=== PATIENT | male | born 1945 | race Caucasian/White ===

== ENCOUNTER 2017-07-15 12:40 | Emergency (ER) | payer MEDICARE, BC ==
[2017-07-15] MEDS ORDERED: Ondansetron INJ* 2 MG/ML VIAL IV ONE (13:09)
[2017-07-15] MEDS ORDERED: fentaNYL* 50 MCG/ML 2 ML VIAL (100 MCG VIAL) IV SLOW PU ONE (13:09)
[2017-07-15] MEDS ORDERED: oxyCODONE SR TAB(*) 20 MG TAB.SR PO ONE (13:44)
[2017-07-15] MEDS ORDERED: Dexamethasone IV* 4 MG/ML 1 ML (4 MG) IV SLOW PU ONE (13:49)
[2017-07-15 13:52] LABS: Hematocrit 33 % (42-52); Hemoglobin 10.9 g/dl (14.0-18.0); Mean Corpuscular HGB Conc 34 g/dl (31-36); Mean Corpuscular Hemoglobin 30 pg (27-31); Mean Corpuscular Volume 89 fL (80-94); Mean Platelet Volume 7 um3 (7.4-10.4); Red Blood Count 3.64 10^6/ul (4.0-5.4); Red Cell Distribution Width 16 % (10.5-15); White Blood Count 7.6 10^3/ul (3.5-10.8)
[2017-07-15 14:00] LABS: Albumin 3.1 g/dL (3.2-5.2); BUN/Creatinine Ratio 20.8 (8-20); C Reactive Protein 75.21 mg/L (< 5.00); Calcium 9.1 mg/dL (8.6-10.3); EGFR African American 128.1 (>60); EGFR Non-African American 99.6 (>60); Globulin 4.2 g/dL (2-4); Potassium 3.8 mmol/L (3.5-5.0); Total Bilirubin 0.6 mg/dL (0.2-1.0); Total Protein 7.3 g/dL (6.4-8.9)
--- NOTE | 2017-07-15 14:00 | PN ---
Progress Note - Progress Note Date of Service: 07/15/17 SOAP: Subjective: []Pain increased over last week. This am very sever. Could not walk and could not sit. Not eating well. No fever or chills. Otherwise stable. Some numbness down left leg. Oxycodone 5 mg q 4 hr Tylenal for pain. Objective: [] Vital Signs Temp Pulse Resp BP Pulse Ox 99.8 F 88 20 131/81 96 07/15/17 12:41 07/15/17 12:41 07/15/17 13:45 07/15/17 12:41 07/15/17 12:41 HEENT - no lesions, no thrush CTA RRR S1S2, tachy +BS NT ND Ext no c/c/e MRI - There is disease in both hips and femurs, pelvic lesions. No pending fractures. Assessment: []72 year old progressive myeloma and uncontrolled pain. Discussed recurrent disease and salvage chemotherapy. Plan: []1. Oxycontin 20 mg po bid for pain, sent to pharmacy 2. Dex 20 IV now 3. RTC tomorrow to start chemotherapy.
[2017-07-15 14:15] VITALS: BP 124/71
--- NOTE | 2017-07-18 13:22 | ED ---
Marilynn Kapoor Thomas scribed for Magno Lo MD on 07/15/17 at 1326 . Lower Extremity - HPI Summary HPI Summary: The pt is a 72 y/o M BIBA c/o L hip pain that began three days ago and significantly worsened last night. The patient has a Hx of multiple myeloma with recent discovery of metastases. The pain is constant and radiates to his lower thigh. The pain is described as dull. The pain is rated 10/10. The pain is aggravated by movement and is alleviated by nothing. The patient has treated the pain with Oxycodone 5mg and Tylenol PLACEMENT SPECIALIST. Recent MRIs on 07/11/17 and bone osseous survey on 07/02/17 were reviewed. - History of Current Complaint Chief Complaint: EDExtremityLower Stated Complaint: HIP PAIN Time Seen by Provider: 07/15/17 12:56 Hx Obtained From: Patient Onset of Pain: Days - 3 Onset/Duration: Worse Since - last night Severity Initially: Moderate Severity Currently: Severe Pain Intensity: 10 Pain Scale Used: 0-10 Numeric Timing: Constant Location: Is Discrete @ - L hip with radiation to lower thigh Character Of Pain: Dull Aggravating Factor(s): Movement Alleviating Factor(s): Nothing Related History: Other - Hx of multiple myeloma with metastases - Allergies/Home Medications Allergies/Adverse Reactions: Allergies Allergy/AdvReac Type Severity Reaction Status Date / Time Simvastatin Allergy Hives Verified 07/08/17 12:43 PMH/Surg Hx/FS Hx/Imm Hx Previously Healthy: No Endocrine/Hematology History: Denies: Hx Diabetes Cardiovascular History: Denies: Hx Hypertension, Hx Pacemaker/ICD Respiratory History: Denies: Hx Asthma Musculoskeletal History: Denies: Hx Osteoporosis Sensory History: Denies: Hx Hearing Aid Psychiatric History: Denies: Hx Panic Disorder - Cancer History Cancer Type, Location and Year: MYELOMA Hx Chemotherapy: Yes - Surgical History Surgery Procedure, Year, and Place: stem cell transplant, right ankle Infectious Disease History: No Infectious Disease History: Denies: Traveled Outside the [place] in Last 30 Days - Family History Known Family History: Positive: Other - Patient denies relevant FHx - Social History Lives: With Family Alcohol Use: Occasionally Substance Use Type: Reports: None Hx Tobacco Use: Yes Smoking Status (MU): Former Smoker Review of Systems Negative: Chest Pain Positive: Other - L hip pain All Other Systems Reviewed And Are Negative: Yes Physical Exam - Summary Physical Exam Summary: VITAL SIGNS: Reviewed. GENERAL: Patient is a well-developed and nourished male who is lying comfortable in the stretcher. Patient is not in any acute respiratory distress. HEAD AND FACE: No signs of trauma. No ecchymosis, hematomas or skull depressions. No sinus tenderness. EYES: PERRLA, EOMI x 2, No injected conjunctiva, no nystagmus. EARS: Hearing grossly intact. Ear canals and tympanic membranes are within normal limits. MOUTH: Oropharynx within normal limits. NECK: Supple, trachea is midline, no adenopathy, no JVD, no carotid bruit, no c- spine tenderness, neck with full ROM. CHEST: Symmetric, no tenderness at palpation LUNGS: Clear to auscultation bilaterally. No wheezing or crackles. CVS: Regular rate and rhythm, S1 and S2 present, no murmurs or gallops appreciated. ABDOMEN: Soft, non-tender. No signs of distention. No rebound no guarding, and no masses palpated. Bowel sounds are normal. EXTREMITIES: FROM in all major joints, no edema, no cyanosis or clubbing. NEURO: Alert and oriented x 3. No acute neurological deficits. Speech is normal and follows commands. SKIN: Dry and warm Triage Information Reviewed: Yes Vital Signs On Initial Exam: Initial Vitals Temp Pulse Resp BP Pulse Ox 99.8 F 88 20 131/81 96 07/15/17 12:41 07/15/17 12:41 07/15/17 12:41 07/15/17 12:41 07/15/17 12:41 Vital Signs Reviewed: Yes - [place] Coma Scale Coma Scale Total: 15 Diagnostics - Vital Signs Vital Signs Temp Pulse Resp BP Pulse Ox 07/15/17 12:41 99.8 F 88 20 131/81 96 - Laboratory Result Diagrams: 07/15/17 13:36 07/15/17 13:36 Lab Statement: Any lab studies that have been ordered have been reviewed, and results considered in the medical decision making process. Lower Extremity Course/Dx - Course Assessment/Plan: The pt is a 72 y/o M BIBA c/o L hip pain that began three days ago and significantly worsened last night. The patient has a Hx of multiple myeloma with recent discovery of metastases. The pain is constant and radiates to his lower thigh. The pain is described as dull. The pain is rated 10/10. The pain is aggravated by movement and is alleviated by nothing. The patient has treated the pain with Oxycodone 5mg and Tylenol PLACEMENT SPECIALIST. Recent MRIs on 07/11/17 and bone osseous survey on 07/02/17 were reviewed. Test results are without significant abnormalities and the results are at the patients baseline. I discussed the case with Dr. Manley, who came and assessed the patient. I gave the patient Fentanyl. Dr. Manley recommended OxyContin with dexamethasone and discharge home with follow up at Dr. Hamilton office tomorrow. The patient is hemodynamically stable and alert and oriented x3. - Diagnoses Provider Diagnoses: Pain control, Multiple myeloma - Physician Notifications Discussed Care Of Patient With: Jeffy Manley Time Discussed With Above Provider: 13:21 Instructed by Provider To: Other - Dr Manley, oncologist, will come and see the patient. He recommends one dose of OxyContin 20mg PO and 10mg Dexamethasone IV. The patient can be discharged home with follow up at Dr. Manley's office tomorrow. Discharge - Discharge Plan Condition: Stable Disposition: HOME Referrals: Jeffy Manley MD [Primary Care Provider] - 1 Day Additional Instructions: Follow up at Dr. Manley's office tomorrow morning. The documentation as recorded by the Marilynn childress Thomas accurately reflects the service I personally performed and the decisions made by , Magno Lo MD.
== END 2017-07-15 14:14 | disposition home or self-care (01) ==
LOC: ED 12:40
DX: C90.00 Multiple myeloma not having achieved remission (principal); M25.552 Pain in left hip; Z87.891 Personal history of nicotine dependence
CPT/HCPCS: 36415; 80053; 85025; 86140; 96374; 96375; 99283; 99284; A9270-GY; J1100; J2405; J3010

== ENCOUNTER 2017-08-29 00:12 | Inpatient (IN) | payer MEDICARE, BC ==
[2017-08-29] MEDS ORDERED: Albuterol 2.5 MG/3 ML NEB.SOL* (0.083%) INH ONE (01:10)
[2017-08-29 01:34] LABS: ABS Basophils 0 10^3/ul (0-0.2); ABS Eosinophils 0 10^3/ul (0-0.6); ABS Lymphocytes 0.7 10^3/ul (1.0-4.8); ABS Monocytes 0.5 10^3/ul (0-0.8); ABS Neutrophils 5.8 10^3/ul (1.5-7.7); ABS Nucleated RBC 0 10^3/ul; Eosinophil % 0.1 % (0-6); Hematocrit 27 % (42-52); Hemoglobin 9.3 g/dl (14.0-18.0); Lymphocyte % 10.1 % (25-47); Mean Corpuscular HGB Conc 34 g/dl (31-36); Mean Corpuscular Hemoglobin 30 pg (27-31); Mean Corpuscular Volume 88 fL (80-94); Mean Platelet Volume 9 um3 (7.4-10.4); Nucleated Red Blood Cells % 0.1; Platelet Count 93 10^3/ul (150-450); Red Blood Count 3.07 10^6/ul (4.0-5.4); Red Cell Distribution Width 17 % (10.5-15)
[2017-08-29 01:44] LABS: EGFR Non-African American 88.9 (>60)
[2017-08-29] MEDS ORDERED: Ondansetron INJ* 2 MG/ML VIAL IV PRN (02:49)
[2017-08-29] MEDS ORDERED: Al Hydrox/Mg Hydrox/Simet LIQ* 30 ML UDC PO PRN (02:49)
[2017-08-29] MEDS ORDERED: Docusate CAP* 100 MG PO PRN (02:49)
[2017-08-29] MEDS ORDERED: Senna TAB PO PRN (02:49)
[2017-08-29] MEDS ORDERED: Acetaminophen TAB* 325 MG PO PRN (02:49)
[2017-08-29] MEDS ORDERED: Levofloxacin 750 MG IVPREMIX(* 750 MG/150 ML BAG IVPB ONE (02:53)
[2017-08-29] MEDS ORDERED: predniSONE TAB* 20 MG PO ONE (02:54)
[2017-08-29] MEDS ORDERED: Albuterol 2.5 MG/3 ML NEB.SOL* (0.083%) INH PRN (02:54)
[2017-08-29] MEDS ORDERED: Vancomycin(*) 1,000 MG in NS 0.9% 250 ML* 250 ML IVPB ONE ×2 (02:59→05:00)
[2017-08-29] MEDS ORDERED: Cefepime(*) 1 GM in NS 0.9% 50 ML* 50 ML IVPB ONE (02:59)
[2017-08-29] MEDS ORDERED: Vancomycin per Pharmacy* NOTE FOLLOW UP SCH (03:00)
[2017-08-29] MEDS ORDERED: HYDROmorphone TAB* 2 MG PO PRN (03:03)
[2017-08-29] MEDS ORDERED: Meclizine TAB* 12.5 MG PO PRN (03:03)
[2017-08-29] MEDS: guaiFENesin ER TAB 600 MG PO SCH ×3 (05:35→20:04)
[2017-08-29] MEDS: fentaNYL PATCH 12 MCG/HR TRANSDERM SCH (05:36)
[2017-08-29] MEDS: NS 0.9% 1000 ML* 1,000 ML IV SCH ×2 (05:42→23:16)
[2017-08-29 06:13] LABS: ABS Basophils 0 10^3/ul (0-0.2); ABS Eosinophils 0 10^3/ul (0-0.6); ABS Lymphocytes 0.5 10^3/ul (1.0-4.8); ABS Monocytes 0.3 10^3/ul (0-0.8); ABS Nucleated RBC 0 10^3/ul; Eosinophil % 0.3 % (0-6); Hematocrit 27 % (42-52); Hemoglobin 9.3 g/dl (14.0-18.0); Lymphocyte % 7.9 % (25-47); Mean Corpuscular HGB Conc 34 g/dl (31-36); Mean Corpuscular Hemoglobin 30 pg (27-31); Mean Corpuscular Volume 89 fL (80-94); Mean Platelet Volume 9 um3 (7.4-10.4); Nucleated Red Blood Cells % 0.1; Platelet Count 97 10^3/ul (150-450); Red Blood Count 3.09 10^6/ul (4.0-5.4); Red Cell Distribution Width 17 % (10.5-15); White Blood Count 5.8 10^3/ul (3.5-10.8)
[2017-08-29] MEDS: fentaNYL Patch Check Q Shift 1 NOTE SCH ×2 (06:22→19:17)
[2017-08-29] MEDS ORDERED: Cefepime 1 GM in Dextrose(*) 1 GM/50 ML BAG IV ONE (06:30)
--- NOTE | 2017-08-29 07:56 | RAD ---
INDICATION: Chest pain and influenza. COMPARISON: Comparison is made with a prior study from August 25, 2017. TECHNIQUE: Dual-energy PA and lateral views of the chest were obtained. FINDINGS: The heart is within normal limits in size. Mediastinal and hilar contours appear within normal limits. There is a patchy infiltrate present at the right lung base which appears to be in the right lower lobe. In addition there is a patchy infiltrate present anteriorly which appears to be in the left upper lobe. These findings are new from the prior study. No pleural effusion is seen. IMPRESSION: NEW BILATERAL INFILTRATES MOST CONSISTENT WITH PNEUMONIA.
[2017-08-29] MEDS: Acyclovir* 400 MG TAB PO SCH ×2 (08:00→20:04)
[2017-08-29] MEDS: predniSONE TAB* 20 MG PO SCH (08:00)
[2017-08-29] MEDS: Aspirin EC Low Dose* 81 MG TAB.EC PO SCH ×2 (08:00→08:02)
[2017-08-29] MEDS: Rivaroxaban TAB(*) 20 MG TAB PO SCH (08:00)
[2017-08-29] MEDS: Oseltamivir CAP* 75 MG CAP PO SCH ×2 (08:00→20:04)
--- NOTE | 2017-08-29 08:36 | PN ---
Progress Note - Progress Note Date of Service: 08/29/17 SOAP: Subjective: []Developed increased SOB and cough over last several days. Could not breath, could not sleep. Continued fevers. Came to ER. CXR w/ new infiltrates, admited and placed on Levoquin and Vancomycin. Feels a little better today but not much. Not eating much and continues to loose weight. Pain is controlled. PmHx: Myeloma relapsed after ASCT, no daratumumab/Dex/Velcade. Extensive bone disease. Acetaminophen (Tylenol Tab*) 650 mg PO Q4H PRN PRN Reason: FEVER/PAIN Acyclovir (Zovirax Tab*) 400 mg PO Q12HR [facility] Last Admin: 08/29/17 08:00 Dose: 400 mg Al Hydrox/Mg Hydrox/Simethicone (Maalox Plus*) 30 ml PO Q6H PRN PRN Reason: INDIGESTION Albuterol (Ventolin 2.5 Mg/3 Ml Neb.Thao*) 2.5 mg INH Q4H PRN PRN Reason: SOB/WHEEZING Docusate Sodium (Colace Cap*) 100 mg PO BID PRN PRN Reason: CONSTIPATION Fentanyl (Duragesic Patch 12 Mcg/Hr *) 12 mcg TRANSDERM Q72H [facility] Last Admin: 08/29/17 05:36 Dose: 12 mcg Guaifenesin (Mucinex*) 600 mg PO BID [facility] Last Admin: 08/29/17 08:00 Dose: 600 mg Hydromorphone HCl (Dilaudid Tab*) 2 mg PO Q4H PRN PRN Reason: PAIN Sodium Chloride (Ns 0.9% 1000 Ml*) 1,000 mls @ 125 mls/hr IV PER RATE [facility] Last Admin: 08/29/17 05:42 Dose: 125 mls/hr Levofloxacin/Dextrose (Levaquin 750 Mg Ivpremix(*)) 750 mg in 150 mls @ 100 mls /hr IVPB Q24H [facility] Cefepime HCl (Maxipime 1 Gm In Dextrose Duplex (*)) 1 gm in 50 mls @ 100 mls/ hr IV Q12H [facility] Vancomycin HCl 1,000 mg/ (Sodium Chloride) 250 mls @ 166.667 mls/hr IVPB Q12H [facility] Meclizine HCl (Antivert Tab*) 12.5 mg PO Q8HR PRN PRN Reason: DIZZINESS Ondansetron HCl (Zofran Inj*) 4 mg IV Q4H PRN PRN Reason: NAUSEA/VOMITING Oseltamivir Phosphate (Tamiflu Cap*) 75 mg PO BID [facility] Stop: 08/29/17 21:01 Last Admin: 08/29/17 08:00 Dose: 75 mg Pharmacy Consult (Vancomycin Per Pharmacy*) 1 note FOLLOW UP .VANC PER PHARMACY [facility] Pharmacy Profile Note (Fentanyl Patch Check Q Shift) 1 note N/A 0700,1900 [facility] Last Admin: 08/29/17 06:22 Dose: 1 note Pharmacy Profile Note (Vancomycin Trough Check) 1 note FOLLOW UP 1730 ONE Stop: 08/30/17 17:31 Prednisone (Deltasone Tab*) 40 mg PO DAILY [facility] Last Admin: 08/29/17 08:00 Dose: 40 mg Rivaroxaban (Xarelto(*)) 20 mg PO DAILY [facility] Last Admin: 08/29/17 08:00 Dose: 20 mg Senna (Senokot Tab*) 1 tab PO BID PRN PRN Reason: CONSTIPATION Objective: [] Vital Signs Temp Pulse Resp BP Pulse Ox 97.3 F 88 20 101/67 94 08/29/17 07:41 08/29/17 07:41 08/29/17 07:41 08/29/17 07:41 08/29/17 07:41 thin, worn down. HEENT: tounge covered, no clear thrush,. no JVD Decreased BS, some crackles, no wheezing. No overt distress RRR S1S2 +BS, NT ND Ext good pulses Assessment: []72 year old MM on therapy and immunosupressed. Dx: Flu on Friday and now with possible superimposed pneumonia. Feels a little better on antibiotics. Plan: []1. Influenza. Will continue Tamiflu until clearly recovered. 2. Pneumonia. Cultures pending, agree with antibiotics. 3. Immunosupressed with farrell hypogamaglobulin. IVIG at 400 mg/m2 over 5 days. 4. Protein Calorie malnutrition. Combination of Myeloma therapy and infection. Nutrition consultation. 5. Continue Xeralto, hold ASA for nose bleeds. 6. Disposition home, PT/OT to keep him moving.
[2017-08-29] MEDS: IMMUNE GLOBULN IV SCH (10:12)
[2017-08-29] MEDS: [UNRECOGNIZED DRUG - OTHER] IV SCH (10:12)
--- NOTE | 2017-08-29 11:19 | HP ---
CC: Greg Solomon MD; Jeffy Manley MD * HISTORY AND PHYSICAL: DATE OF ADMISSION: 08/29/17 TIME OF EVALUATION: 0300. PRIMARY CARE PHYSICIAN: Greg Solomon MD. ONCOLOGIST: Jeffy Manley MD. CHIEF COMPLAINT: Cough, chest pain, and shortness of breath. HISTORY OF PRESENT ILLNESS: This is a 72-year-old male with a past medical history of multiple myeloma followed by Dr. Manley on chemotherapy, who was diagnosed with influenza A on 08/25/17, started on Tamiflu that day. His coughing and shortness of breath has gotten significantly worse over the past several days. He is unable to take a deep breaths. He continues to have low- grade fevers, nausea, and decreased appetite. He did have a chest x-ray on the that was unremarkable for pneumonia. He has been taking cough syrup with codeine with no significant improvement. He does have some abdominal discomfort. He is complaining of constipation. He feels that he has lost about 5 pounds throughout the course of this illness. They say that regarding his multiple myeloma, he is followed by Dr. Manley, his chemo is on hold in the setting of his influenza. He had reaction to chemo in the past that damaged a part of his lungs. Otherwise, remaining review of systems is negative. In the emergency room, the patient had labs, imaging. He was given albuterol neb and referred to the hospitalist service for further evaluation. PAST MEDICAL HISTORY: 1. History of multiple myeloma, on chemotherapy, followed by Dr. Manley. 2. History of a pulmonary emboli, on anticoagulation. 3. Constipation. 4. Hypertension. 5. Chronic pain due to lytic lesions from his myeloma. MEDICATIONS: 1. Tamiflu 75 mg p.o. b.i.d. started on August 25. 2. Acyclovir 400 mg p.o. b.i.d. 3. Dexamethasone 4 mg to take 5 tablets on day of chemo cycle. 4. Amlodipine 5 mg p.o. daily. 5. Fentanyl patch 12 to 24 mcg daily. 6. Hydromorphone 2 mg every 4 hours as needed. 7. Zofran 4 mg every 6 hours as needed. 8. Senokot stool softener as needed. 9. Meclizine every 8 hours as needed. ALLERGIES: SIMVASTATIN, developed hives. FAMILY HISTORY: Reviewed and noncontributory. SOCIAL HISTORY: The patient lives at home with his , Liset, who is his healthcare proxy. He quite smoking 8 years ago. He states he was a heavy smoker 2 to 3 packs per day for the past 40 years. No longer drinking any alcohol. No illicit drug use. I discussed code status; as he had to think about, I will give him a blank MOLST form. REVIEW OF SYSTEMS: A 14-point review of systems was reviewed and otherwise negative and as mentioned in the HPI. PHYSICAL EXAMINATION GENERAL: Elderly male in mild acute distress with his family at the bedside. VITAL SIGNS: Temp 100.3, pulse rate 95, respiratory rate 16, oxygen saturation 96% on 3 L, blood pressure 110/75. HEENT: Head: Normocephalic. Pupils equal and reactive, anicteric. Oropharynx : Mucous membranes dry. NECK: Supple. No lymphadenopathy. RESPIRATORY: Poor aeration. No increased work of breathing. Rhonchorous breath sounds, more pronounced on the left. CARDIAC: Regular rate and rhythm. Soft systolic murmur heard throughout. ABDOMEN: Soft, nondistended. Some slight tenderness. No rebound or guarding. EXTREMITIES: No clubbing, cyanosis, or edema. +2 DPs. NEUROLOGIC: Alert and oriented x3. No focal neurologic deficits. LABORATORY DATA: White count 7, hemoglobin 9.3, hematocrit 27, platelets 93. Sodium 136, potassium 3.5, chloride 103, bicarb 22, BUN 20, creatinine 0.85, glucose 108. Troponin 0.02. RADIOGRAPHIC DATA: Chest x-ray compared to the 8th shows prominent opacifications in the left lower lobe and the right middle lobe. EKG shows normal sinus rhythm. ASSESSMENT: This is a 72-year-old male with a past medical history of multiple myeloma and on chemotherapy, recently diagnosed with influenza, who presents with worsening shortness of breath, found to have pneumonia. 1. Community-acquired pneumonia. Assessment: The patient immunocompromised on chemotherapy with pneumonia in the setting of influenza A. Plan: We will treat him aggressively with antibiotics in the setting of his immunocompromised state with cefepime, Levaquin, and vancomycin. Follow up on blood cultures. We will repeat a troponin in the morning at the time of chest pain, unlikely pulmonary embolism in the setting of the patient being on Xarelto , no lower extremity swelling and has other reasons for his chest pain and shortness of breath. We will also place him on gentle fluids and sign out to the oncologist in the morning to take over. We will also order cough suppressant. 2. Chronic medical problems. We will resume his home medications as prescribed. We will hold his amlodipine in the setting of systolic blood pressures. 3. FEN. Place the patient on a regular diet with gentle IV fluids. 4. DVT prophylaxis. The patient scores high risk. He is on Xarelto. 5. Code status. Full code for now. He wants to review the MOLST form and discuss further with the family. PATIENT TIME: Greater than 50 minutes spent doing the history and physical, more than half the patient spent with direct patient contact. [id number]/CPS #: [id number] NIK
[2017-08-29] MEDS ORDERED: Cefepime(*) 1 GM in NS 0.9% 50 ML* 50 ML IVPB SCH (16:00)
[2017-08-29] MEDS: Vancomycin(*) 1,000 MG in NS 0.9% 250 ML* 250 ML IVPB SCH (17:25)
[2017-08-29] MEDS: Cefepime 1 GM in Dextrose(*) 1 GM/50 ML BAG IV SCH (20:10)
[2017-08-30] MEDS: Levofloxacin 750 MG IVPREMIX(* 750 MG/150 ML BAG IVPB SCH (03:39)
[2017-08-30] MEDS: Vancomycin(*) 1,000 MG in NS 0.9% 250 ML* 250 ML IVPB SCH (06:01)
[2017-08-30] MEDS: fentaNYL Patch Check Q Shift 1 NOTE SCH ×2 (06:21→18:39)
[2017-08-30] MEDS: Cefepime 1 GM in Dextrose(*) 1 GM/50 ML BAG IV SCH ×2 (07:47→19:47)
[2017-08-30] MEDS: Oseltamivir CAP* 75 MG CAP PO SCH ×2 (07:48→20:50)
[2017-08-30] MEDS: Rivaroxaban TAB(*) 20 MG TAB PO SCH (07:48)
[2017-08-30] MEDS: Acyclovir* 400 MG TAB PO SCH ×2 (07:48→20:50)
[2017-08-30] MEDS: guaiFENesin ER TAB 600 MG PO SCH ×2 (07:48→20:50)
[2017-08-30] MEDS: predniSONE TAB* 20 MG PO SCH (07:48)
[2017-08-30 08:53] LABS: Hematocrit 30 % (42-52); Hemoglobin 9.9 g/dl (14.0-18.0); Mean Corpuscular HGB Conc 34 g/dl (31-36); Mean Corpuscular Hemoglobin 30 pg (27-31); Mean Corpuscular Volume 89 fL (80-94); Mean Platelet Volume 8 um3 (7.4-10.4); Platelet Count 93 10^3/ul (150-450); Red Blood Count 3.32 10^6/ul (4.0-5.4); Red Cell Distribution Width 17 % (10.5-15); White Blood Count 6.1 10^3/ul (3.5-10.8)
[2017-08-30 09:07] LABS: EGFR Non-African American 105.9 (>60)
[2017-08-30] MEDS: [UNRECOGNIZED DRUG - OTHER] IV SCH (09:42)
[2017-08-30] MEDS: IMMUNE GLOBULN IV SCH (09:42)
[2017-08-30] MEDS: NS 0.9% 1000 ML* 1,000 ML IV SCH (14:40)
[2017-08-30] MEDS ORDERED: Vancomycin Trough Check NOTE FOLLOW UP ONE (17:30)
[2017-08-31] MEDS: NS 0.9% 1000 ML* 1,000 ML IV SCH ×2 (00:29→10:45)
[2017-08-31] MEDS: Levofloxacin 750 MG IVPREMIX(* 750 MG/150 ML BAG IVPB SCH (03:34)
[2017-08-31] MEDS: fentaNYL Patch Check Q Shift 1 NOTE SCH ×2 (06:32→20:08)
[2017-08-31] MEDS: Cefepime 1 GM in Dextrose(*) 1 GM/50 ML BAG IV SCH ×2 (08:37→19:52)
[2017-08-31] MEDS: Acyclovir* 400 MG TAB PO SCH ×2 (08:37→19:51)
[2017-08-31] MEDS: predniSONE TAB* 20 MG PO SCH (08:38)
[2017-08-31] MEDS: guaiFENesin ER TAB 600 MG PO SCH ×2 (08:38→19:51)
[2017-08-31] MEDS: Rivaroxaban TAB(*) 20 MG TAB PO SCH (08:38)
[2017-08-31] MEDS: Oseltamivir CAP* 75 MG CAP PO SCH ×2 (08:38→19:51)
[2017-09-01] MEDS: Levofloxacin 750 MG IVPREMIX(* 750 MG/150 ML BAG IVPB SCH (03:09)
[2017-09-01] MEDS: fentaNYL PATCH 12 MCG/HR TRANSDERM SCH (04:42)
[2017-09-01] MEDS: fentaNYL Patch Check Q Shift 1 NOTE SCH ×2 (04:51→07:11)
[2017-09-01 08:16] VITALS: BP 118/76
[2017-09-01] MEDS: guaiFENesin ER TAB 600 MG PO SCH (08:18)
[2017-09-01] MEDS: Acyclovir* 400 MG TAB PO SCH (08:18)
[2017-09-01] MEDS: Cefepime 1 GM in Dextrose(*) 1 GM/50 ML BAG IV SCH (08:18)
[2017-09-01] MEDS: Oseltamivir CAP* 75 MG CAP PO SCH (08:18)
[2017-09-01] MEDS: predniSONE TAB* 20 MG PO SCH (08:18)
[2017-09-01] MEDS: Rivaroxaban TAB(*) 20 MG TAB PO SCH (08:18)
--- NOTE | 2017-09-01 11:47 | DS ---
- Discharge Summary Admission Date: 08/29/17 Discharge Date: 09/01/17 Discharge Diagnosis: 1. Influenza: completed tamiflu, appears improved 2. Community Acquired Pneumonia: 08/21 blood cultures MSSA +, felt to be the cause , on Levaquin to complete 14 day course 3. Multiple Myeloma: therapy to be held x1 week Discharge Medications: 1. Levaquin 750 mg PO daily x11 days 2. Prednsione 5 mg PO - taper: 30 mg x3 days, 20 mg x3 days, 10 mg x3 days, 5 mg x3 days 3. Maalox 30 mL PO q6hrs PRN indigestion 4. Docusate sodium 100 mg PO BID PRN constipation 5. Guaifenesin ER 600 mg PO BID 6. Senna 1 tab PO qHS PRN constipation 7. Meclinzine 12.5 mg PO TID PRN dizziness 8. Ondansetron 4 mg PO q6hrs PRN nausea 9. Hydromoprhone 2 mg PO q4 hrs PRN pain 10. Fentanyl 12 mcg/hr transdermal q7hrs 11. Amlodipine 5 mg PO daily 12. Dexamethasone as directed with chemo 13. Acyclovir 400 mg PO BID 14. Rivaroxaban 20 mg PO daily 15. Diphenhydramine 25 mg PO daily 16. Acetaminophen 650 mg PO q6hrs PRN pain Hospital Course: Please see admission note for full H&P, however, briefly Mr. Morris is well known to our service due to his diagnosis of his multiple myeloma, currently on therapy with Daratumumab, Bortezomib, and Dexamethasone. He was seen in follow- up in the office on 08/25 with symptoms consistent with influenza (swab positive) and given a script for Tamiflu. He unfortunately had progressive symptoms with increasing SOB and chest pain, resulting in an ER visit overnight 08/29 with chest x-ray revealing a community acquired pneumonia. He was admitted for IV abx. That AM Dr. Manley ordered IV Ig x2 doses. One of four blood cultures on admission grew MSSA and this was felt to be the cause of his pneumonia. He has improved daily and today feels ready for d/c home. He has not required O2 in > 24 hours and his ambulatory O2 SAT on room air was >90%. He will be d/c'd home off tamiflu (completed 10 doses), with prednisone taper, and Levaquin to complete a full 2 week course. Due to the severity of his pneumonia he will have treatment held x1 week and he will follow-up with our office prior to restarting. Plan of care was reviewed at length with Judanna and his , all questions answered. >40 min spent with >50% face to face counseling
--- NOTE | 2017-09-05 00:18 | ED ---
Ofelia Kapoor Emily, scribed for Vargas Licona MD on 08/29/17 at 0108 . HPI Chest Pain - HPI Summary HPI Summary: This patient is a 72 year old M BIBA to [facility] accompanied by family with a chief complaint of sharp CP that began yesterday. The patient rates the pain 5/ 10 in severity. Symptoms aggravated by nothing. Symptoms alleviated by nothing. Patient reports SOB and cough. Patient denies leg edema. Pt tested positive for influenza A on 08/25/2017. Pt is being treated for myeloma. - History of Current Complaint Chief Complaint: EDChestPainROMI Hx Obtained From: Patient, Family/Preventive Medicine Officer Onset/Duration: Started Hours Ago, Still Present Timing: Constant, Lasting Hours Initial Severity: Moderate Current Severity: Moderate Pain Intensity: 5 Pain Scale Used: 0-10 Numeric Chest Pain Radiates: Yes Chest Pain Radiates To:: Back Character: Sharp/Stabbing Aggravating Factor(s): Nothing Alleviating Factor(s): Nothing Associated Signs and Symptoms: Positive: Shortness of Breath, Cough - Allergy/Home Medications Allergies/Adverse Reactions: Allergies Allergy/AdvReac Type Severity Reaction Status Date / Time Simvastatin Allergy Hives Verified 08/29/17 00:48 Home Medications: Home Medications Acetaminophen [Acetaminophen Extra Stren] 1,000 mg PO PRN 08/29/17 [History] Acyclovir* [Zovirax 400 MG TAB*] 400 mg PO BID 08/29/17 [History Confirmed 08/29] Amlodipine Besylate [Norvasc 5 mg tab] 5 mg PO DAILY 08/29/17 [History Confirmed 08/29/17] Daratumumab* [Darzalex*] 0 mg 08/29/17 [History] Dexamethasone TAB* [Decadron TAB*] 4 mg PO SEE INSTRUCTIONS 08/29/17 [History Confirmed 08/29/17] Diphenhydramine HCl [Benadryl Allergy 25 MG CAP] 25 mg PO 08/29/17 [History] Hydromorphone HCl [Dilaudid] 2 mg PO Q4H PRN MDD 8 mg 08/29/17 [History Confirmed 08/29/17] Meclizine TAB* [Antivert 12.5 TAB*] 12.5 mg PO TID PRN 08/29/17 [History Confirmed 08/29/17] Ondansetron TAB* [Zofran 4 MG Tab*] 4 mg PO Q6H PRN 08/29/17 [History Confirmed 08/29/17] Rivaroxaban TAB(*) [Xarelto 20 mg] 20 mg PO DAILY 08/29/17 [History Confirmed ] Senna TAB* [Senokot TAB*] 1 tab PO BEDTIME PRN 08/29/17 [History Confirmed 08/29] fentaNYL PATCH 12 MCG/HR * [Duragesic Patch 12 Mcg/Hr *] 12 mcg TRANSDERM Q72H 08/29/17 [History Confirmed 08/29/17] PMH/Surg Hx/FS Hx/Imm Hx Previously Healthy: No Endocrine/Hematology History: Denies: Hx Diabetes Cardiovascular History: Denies: Hx Hypertension, Hx Pacemaker/ICD Respiratory History: Denies: Hx Asthma History: Denies: Hx Renal Disease Musculoskeletal History: Denies: Hx Osteoporosis Sensory History: Denies: Hx Hearing Aid Psychiatric History: Denies: Hx Panic Disorder - Cancer History Cancer Type, Location and Year: MYELOMA Hx Chemotherapy: Yes - Surgical History Surgery Procedure, Year, and Place: 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, right ankle AGE 22 - Immunization History Date of Tetanus Vaccine: 01/01 Date of Influenza Vaccine: 08/03 Infectious Disease History: Yes Infectious Disease History: Denies: Traveled Outside the [place] in Last 30 Days - Family History Known Family History: Positive: None - Social History Occupation: Retired Lives: With Family Alcohol Use: Occasionally Substance Use Type: Reports: None Hx Tobacco Use: Yes Smoking Status (MU): Former Smoker Review of Systems Positive: Chest Pain Positive: Shortness Of Breath, Cough Negative: Edema All Other Systems Reviewed And Are Negative: Yes Physical Exam - Summary Physical Exam Summary: Appearance: Well-appearing, Well-nourished Skin: Warm, Dry, No rash Eyes: Normal, PERRL, EOMI, sclera anicteric ENT: Normal Neck: Supple, nontender Respiratory: Bilateral rales, more on the left side than the right Cardiovascular: S1, S2, no murmur, no rub, no gallop Abdomen: Soft, nontender, no organomegaly Bowel sounds: Present Musculoskeletal: Normal, Strength/ROM Intact, no edema, pulses symmetrical Neurological: Normal, A&Ox3, cranial nerves II-XII WNL, follows commands, gait not tested, sensation intact to pin and light touch Psychiatric: affect normal, behavior appropriate, dressed appropriately, judgment intact Triage Information Reviewed: Yes Vital Signs On Initial Exam: Initial Vitals Temp Pulse Resp BP Pulse Ox 100.3 F 98 20 110/75 93 08/29/17 00:19 08/29/17 00:19 08/29/17 00:19 08/29/17 00:19 08/29/17 00:19 Vital Signs Reviewed: Yes - [place] Coma Scale Coma Scale Total: 15 Diagnostics - Vital Signs Vital Signs Temp Pulse Resp BP Pulse Ox 08/29/17 00:19 100.3 F 98 20 110/75 93 - Laboratory Result Diagrams: 08/29/17 01:20 08/29/17 01:20 Lab Statement: Any lab studies that have been ordered have been reviewed, and results considered in the medical decision making process. - Radiology CXR Radiology Interpretation Completed By: ED Physician - CXR reveals, per ED physician, right lower and middle lobe pneumonia. - EKG 0217 Cardiac Rate: NL EKG Rhythm: Sinus Rhythm - 91 BPM EKG Interpretation: Old anteroseptal DC Chest Pain Course/Dx - Course Assessment/Plan: This patient is a 72 year old M BIBA to [facility] accompanied by family with a chief complaint of sharp CP that began yesterday. Pt reports SOB and cough. Physical Exam Findings. Bilateral rales, more on the left side than the right. An EKG taken at 0217 reveals nml sinus rhythm at 91 BPM with old anteroseptal DC. CXR reveals, per ED physician, right lower and middle lobe pneumonia. ED physician has reviewed this radiology report. Bloodwork obtained. In the ED course the patient was given Albuterol. Consult with Dr. Pearson (hospitalist) at 0234. She agrees to admit pt for further evaluation. The patient is agreeable with this plan. - Diagnoses Provider Diagnoses: Bacterial pneumonia, Influenza, pneumonia, Myeloma - Provider Notifications Discussed Care Of Patient With: Juliet Pearson Time Discussed With Above Provider: 02:34 Instructed by Provider To: Other - Consult with Dr. Pearson (hospitalist) at 0234. She agrees to admit pt for further evaluation. Discharge - Discharge Plan Condition: Stable Disposition: ADMITTED TO [facility] Referrals: Greg Solomon MD [Primary Care Provider] - The documentation as recorded by the Ofelia childress Emily accurately reflects the service I personally performed and the decisions made by me, Vargas Licona MD.
== END 2017-09-01 12:33 | disposition home or self-care (01) | DRG 178 ==
LOC: ED 00:12 → MEDTELE 02:49
PROVIDERS: ADMIT Pediatrics; ATTEND Internal Medicine Hematology & Oncology
DX: J10.08 Influenza due to other identified influenza virus with other specified pneumonia (principal); C90.00 Multiple myeloma not having achieved remission; J15.211 Pneumonia due to Methicillin susceptible Staphylococcus aureus; E46 Unspecified protein-calorie malnutrition; D80.1 Nonfamilial hypogammaglobulinemia; Z68.1 Body mass index [BMI] 19.9 or less, adult; K59.00 Constipation, unspecified; I10 Essential (primary) hypertension; G89.3 Neoplasm related pain (acute) (chronic); Z79.01 Long term (current) use of anticoagulants; Z79.899 Other long term (current) drug therapy; Z88.8 Allergy status to other drugs, medicaments and biological substances; Z87.891 Personal history of nicotine dependence
CPT/HCPCS: 36415; 71046; 80053; 80202; 83735; 84484; 85025; 85027; 87040; 87077; 87150; 87186; 87899; 93005; 94640; 94760; 99232; 99238; 99239; 99284; A9270-GY; J0692; J1568; J3370; J7512

== ENCOUNTER 2017-10-08 06:49 | Emergency (ER) | payer MEDICARE, BC ==
[2017-10-08] MEDS ORDERED: NS 0.9% 1000 ML* 1,000 ML IV ONE (07:32)
[2017-10-08] MEDS ORDERED: HYDROmorphone INJ* 1 MG/ML CARPUJECT SYRINGE IV ONE ×3 (07:32→10:22)
[2017-10-08] MEDS ORDERED: Ondansetron INJ* 2 MG/ML VIAL IV ONE (07:32)
[2017-10-08 08:08] LABS: ABS Basophils 0 10^3/ul (0-0.2); ABS Eosinophils 0 10^3/ul (0-0.6); ABS Monocytes 1.3 10^3/ul (0-0.8); ABS Nucleated RBC 0 10^3/ul; Eosinophil % 0 % (0-6); Hematocrit 25 % (42-52); Hemoglobin 8.6 g/dl (14.0-18.0); Lymphocyte % 24.1 % (25-47); Mean Corpuscular HGB Conc 34 g/dl (31-36); Mean Corpuscular Hemoglobin 31 pg (27-31); Mean Corpuscular Volume 90 fL (80-94); Mean Platelet Volume 8 um3 (7.4-10.4); Nucleated Red Blood Cells % 0.1; Platelet Count 230 10^3/ul (150-450); Red Blood Count 2.78 10^6/ul (4.0-5.4); Red Cell Distribution Width 20 % (10.5-15); White Blood Count 8.4 10^3/ul (3.5-10.8)
[2017-10-08 08:19] LABS: Urine Appearance Cloudy; Urine Blood 2+ (Negative); Urine Color Yellow; Urine Ketones Trace (Negative); Urine Protein 1+(30 mg/dL) (Negative); Urine Specific Gravity 1.018 (1.010-1.030); Urine Urobilinogen Negative (Negative)
[2017-10-08 08:25] LABS: EGFR Non-African American 116.9 (>60); INR 1.12 (0.77-1.02)
[2017-10-08 11:03] VITALS: BP 108/74
--- NOTE | 2017-10-08 14:14 | ED ---
Gentry Kapoor Angela, scribed for Sonny Cristina MD on 10/08/17 at 0736 . Lower Extremity - HPI Summary HPI Summary: This pt is a 72 y/o male, with hx of multiple myeloma CA, presenting to [facility] via EMS c/o hip, pelvis, and left leg pain. Pt reports that he underwent a transplant and was in remission in 2015 for 1 year. He notes his cancer came back last fall. Pt states he underwent chemotherapy and just 2 days ago he started radiation. Pt has been using a fentanyl patch at home and hydromorphone 2 mg q4h (last dose at 02:00 today) without any relief. He reports he had a cold last week and was treated with a 6 day course medication. Denies fever. Pt is followed up by Dr. Degroot. - History of Current Complaint Chief Complaint: EDGeneral Stated Complaint: PAIN Time Seen by Provider: 10/08/17 07:19 Hx Obtained From: Patient Mechanism Of Injury: Other - none Onset of Pain: Days Onset/Duration: Still Present Severity Currently: Severe Pain Intensity: 8 Pain Scale Used: 0-10 Numeric Timing: Lasting Days Location: Is Discrete @ - pelvis, hip, and left leg Aggravating Factor(s): Nothing Alleviating Factor(s): Nothing - Allergies/Home Medications Allergies/Adverse Reactions: Allergies Allergy/AdvReac Type Severity Reaction Status Date / Time simvastatin Allergy Hives Verified 09/26/17 13:40 PMH/Surg Hx/FS Hx/Imm Hx Endocrine/Hematology History: Denies: Hx Diabetes Cardiovascular History: Reports: Hx Hypertension Denies: Hx Pacemaker/ICD Respiratory History: Denies: Hx Asthma, Hx Chronic Bronchitis - "once" History: Denies: Hx Renal Disease Musculoskeletal History: Denies: Hx Osteoporosis Sensory History: Reports: Hx Contacts or Glasses Denies: Hx Hearing Aid Opthamlomology History: Reports: Hx Contacts or Glasses Psychiatric History: Denies: Hx Panic Disorder - Cancer History Cancer Type, Location and Year: MYELOMA Hx Chemotherapy: Yes - Surgical History Surgery Procedure, Year, and Place: 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, right ankle AGE 22 - Immunization History Date of Tetanus Vaccine: 01/01 Date of Influenza Vaccine: 08/03 Infectious Disease History: No Infectious Disease History: Denies: Traveled Outside the [place] in Last 30 Days - Family History Known Family History: Positive: Diabetes Family History: Mother and sister: stomach CA - Social History Alcohol Use: Occasionally Substance Use Type: Reports: None Hx Tobacco Use: Yes Smoking Status (MU): Former Smoker Review of Systems Negative: Fever, Chills Cardiovascular: Negative Respiratory: Negative Gastrointestinal: Negative Musculoskeletal: Other - hip pain, pelvis pain, left leg pain All Other Systems Reviewed And Are Negative: Yes Physical Exam - Summary Physical Exam Summary: General: well-appearing, in pain distress Skin: warm, color reflects adequate perfusion, dry Head: normal Eyes: EOMI, CHRISTIANE ENT: normal Neck: supple, nontender Respiratory: CTA, breath sounds present Cardiovascular: RRR Abdomen: soft, nontender Bowel: present Musculoskeletal: normal, strength/ROM intact Neurological: normal, sensory/motor intact, A&O x3 Psychological: affect/mood appropriate Triage Information Reviewed: Yes Vital Signs On Initial Exam: Initial Vitals Temp Pulse Resp BP Pulse Ox 99.7 F 103 20 134/83 93 10/08/17 06:52 10/08/17 06:52 10/08/17 06:52 10/08/17 06:52 10/08/17 06:52 Vital Signs Reviewed: Yes Diagnostics - Vital Signs Vital Signs Temp Pulse Resp BP Pulse Ox 10/08/17 07:10 99 94 10/08/17 07:09 125/73 10/08/17 06:52 99.7 F 103 20 134/83 93 - Laboratory Lab Results: Lab Results 10/08/17 10/08/17 10/08/17 Range/Units 07:52 07:52 07:52 WBC (3.5-10.8) 10^3/ul RBC (4.0-5.4) 10^6/ul Hgb (14.0-18.0) g/dl Hct (42-52) % MCV (80-94) fL MCH (27-31) pg MCHC (31-36) g/dl RDW (10.5-15) % Plt Count (150-450) 10^3/ul MPV (7.4-10.4) um3 Neut % (Auto) (38-83) % Lymph % (Auto) (25-47) % [place] % (Auto) (1-9) % Eos % (Auto) (0-6) % Baso % (Auto) (0-2) % Absolute Neuts (auto) (1.5-7.7) 10^3/ul Absolute Lymphs (auto) (1.0-4.8) 10^3/ul Absolute Monos (auto) (0-0.8) 10^3/ul Absolute Eos (auto) (0-0.6) 10^3/ul Absolute Basos (auto) (0-0.2) 10^3/ul Absolute Nucleated RBC 10^3/ul Nucleated RBC % INR (Anticoag Therapy) 1.12 H (0.77-1.02) APTT 29.8 (26.0-36.3) seconds Sodium 136 (133-145) mmol/L Potassium 3.5 (3.5-5.0) mmol/L Chloride 103 (101-111) mmol/L Carbon Dioxide 22 (22-32) mmol/L Anion Gap 11 (2-11) mmol/L BUN 17 (6-24) mg/dL Creatinine 0.67 (0.67-1.17) mg/dL Est GFR ( Amer) 150.4 (>60) Est GFR (Non-Af Amer) 116.9 (>60) BUN/Creatinine Ratio 25.4 H (8-20) Glucose 105 H (70-100) mg/dL Lactic Acid (0.5-2.0) mmol/L Calcium 9.0 (8.6-10.3) mg/dL Total Bilirubin 0.70 (0.2-1.0) mg/dL AST 116 H (13-39) U/L ALT 11 (7-52) U/L Alkaline Phosphatase 38 (34-104) U/L C-Reactive Protein 194.92 H (< 5.00) mg/L B-Natriuretic Peptide 58 ( - 100) pg/mL Total Protein 7.7 (6.4-8.9) g/dL Albumin 3.0 L (3.2-5.2) g/dL Globulin 4.7 H (2-4) g/dL Albumin/Globulin Ratio 0.6 L (1-3) Lipase < 10 L (11.0-82.0) U/L Urine Color Urine Appearance Urine pH (5-9) Ur Specific [place] (1.010-1.030) Urine Protein (Negative) Urine Ketones (Negative) Urine Blood (Negative) Urine Nitrate (Negative) Urine Bilirubin (Negative) Urine Urobilinogen (Negative) Ur Leukocyte Esterase (Negative) Urine WBC (Auto) (Absent) Urine RBC (Auto) (Absent) Urine Bacteria (Absent) Granular Casts (Absent) Urine Glucose (Negative) 10/08/17 10/08/17 10/08/17 Range/Units 07:52 07:52 08:00 WBC 8.4 (3.5-10.8) 10^3/ul RBC 2.78 L (4.0-5.4) 10^6/ul Hgb 8.6 L (14.0-18.0) g/dl Hct 25 L (42-52) % MCV 90 (80-94) fL MCH 31 (27-31) pg MCHC 34 (31-36) g/dl RDW 20 H (10.5-15) % Plt Count 230 (150-450) 10^3/ul MPV 8 (7.4-10.4) um3 Neut % (Auto) 59.8 (38-83) % Lymph % (Auto) 24.1 L (25-47) % [place] % (Auto) 16.0 H (1-9) % Eos % (Auto) 0 (0-6) % Baso % (Auto) 0.1 (0-2) % Absolute Neuts (auto) 5.0 (1.5-7.7) 10^3/ul Absolute Lymphs (auto) 2.0 (1.0-4.8) 10^3/ul Absolute Monos (auto) 1.3 H (0-0.8) 10^3/ul Absolute Eos (auto) 0 (0-0.6) 10^3/ul Absolute Basos (auto) 0 (0-0.2) 10^3/ul Absolute Nucleated RBC 0 10^3/ul Nucleated RBC % 0.1 INR (Anticoag Therapy) (0.77-1.02) APTT (26.0-36.3) seconds Sodium (133-145) mmol/L Potassium (3.5-5.0) mmol/L Chloride (101-111) mmol/L Carbon Dioxide (22-32) mmol/L Anion Gap (2-11) mmol/L BUN (6-24) mg/dL Creatinine (0.67-1.17) mg/dL Est GFR ( Amer) (>60) Est GFR (Non-Af Amer) (>60) BUN/Creatinine Ratio (8-20) Glucose (70-100) mg/dL Lactic Acid 3.8 H* (0.5-2.0) mmol/L Calcium (8.6-10.3) mg/dL Total Bilirubin (0.2-1.0) mg/dL AST (13-39) U/L ALT (7-52) U/L Alkaline Phosphatase (34-104) U/L C-Reactive Protein (< 5.00) mg/L B-Natriuretic Peptide ( - 100) pg/mL Total Protein (6.4-8.9) g/dL Albumin (3.2-5.2) g/dL Globulin (2-4) g/dL Albumin/Globulin Ratio (1-3) Lipase (11.0-82.0) U/L Urine Color Yellow Urine Appearance Cloudy Urine pH 5.0 (5-9) Ur Specific [place] 1.018 (1.010-1.030) Urine Protein 1+(30 mg/dl) H (Negative) Urine Ketones Trace H (Negative) Urine Blood 2+ H (Negative) Urine Nitrate Negative (Negative) Urine Bilirubin Negative (Negative) Urine Urobilinogen Negative (Negative) Ur Leukocyte Esterase Negative (Negative) Urine WBC (Auto) Trace(0-5/hpf) (Absent) Urine RBC (Auto) 1+(3-5/hpf) H (Absent) Urine Bacteria Absent (Absent) Granular Casts Present H (Absent) Urine Glucose Negative (Negative) Result Diagrams: 10/08/17 07:52 10/08/17 07:52 Lab Statement: Any lab studies that have been ordered have been reviewed, and results considered in the medical decision making process. Re-Evaluation - Re-Evaluation First Eval Re-Evaluation Time: 09:21 Comment: Pt reports his hip pain is tolerable but still has pain in femoral area. Lower Extremity Course/Dx - Course Course Of Treatment: Medications reviewed. Allergies noted. In the ED course pt was given IV fluids, zofran, and hydromorphone. BP noted and advised to follow up with PCP. I discussed pt care with Dr. Valdez. PAIN IMPROVED IN ED WITH IV DILAUDID. PATIENT WISHES TO GO HOME. DISCUSSED WITH DR VALDEZ; HE RECOMMENDS INCREASING FENTANYL TO 50MCG AND DILAUDID 2MG TO Q 3 HOURS. F/U HEME/ONC; RETURN IF WORSE. - Diagnoses Provider Diagnoses: Hypertension, Multiple myeloma, Hip pain, left, Left thigh pain - Physician Notifications Discussed Care Of Patient With: Ernie Valdez Time Discussed With Above Provider: 07:45 Instructed by Provider To: Other - I discussed pt care with Dr. Valdez, oncologist, who reports to get lab results, to control the pain, and call him back. [09:41] I spoke with Dr. Valdez who reports the pt should go to radiation today and increase dilaudid q3h and fentanyl patch dose. Discharge - Discharge Plan Condition: Stable Disposition: HOME Patient Education Materials: Multiple Myeloma (DC), Hip Pain (ED) Referrals: Jeffy Degroot MD [Primary Care Provider] - Additional Instructions: FOLLOW UP WITH DR DEGROOT. INCREASE THE HYDROMORPHONE (DILAUDID) FROM 2MG EVERY 4 HOURS TO EVERY 3 HOURS NEEDED. INCREASE THE FENTANYL PATCH FROM 25MCG TO 50MCG. RETURN TO THE EMERGENCY DEPARTMENT FOR ANY WORSENING OF YOUR CONDITION OR QUESTIONS OR CONCERNS. The documentation as recorded by the Gentry childress Angela accurately reflects the service I personally performed and the decisions made by me, Sonny Cristina MD.
== END 2017-10-08 11:02 | disposition home or self-care (01) ==
LOC: ED 06:49
DX: M25.552 Pain in left hip (principal); M79.652 Pain in left thigh; C90.00 Multiple myeloma not having achieved remission; I10 Essential (primary) hypertension; Z79.899 Other long term (current) drug therapy; Z87.891 Personal history of nicotine dependence
CPT/HCPCS: 36415; 80053; 81003; 81015; 83605; 83690; 83880; 85025; 85610; 85730; 86140; 96374; 96375; 96376; 99282; J1170; J2405

== ENCOUNTER 2017-10-10 11:34 | Inpatient (IN) | payer MEDICARE, BC ==
[2017-10-10 12:23] LABS: ABS Basophils 0 10^3/ul (0-0.2); ABS Eosinophils 0 10^3/ul (0-0.6); ABS Lymphocytes 0.5 10^3/ul (1.0-4.8); ABS Monocytes 0.6 10^3/ul (0-0.8); ABS Neutrophils 4.1 10^3/ul (1.5-7.7); ABS Nucleated RBC 0 10^3/ul; Eosinophil % 0.1 % (0-6); Hematocrit 27 % (42-52); Hemoglobin 9.1 g/dl (14.0-18.0); Lymphocyte % 9.9 % (25-47); Mean Corpuscular HGB Conc 34 g/dl (31-36); Mean Corpuscular Hemoglobin 31 pg (27-31); Mean Corpuscular Volume 91 fL (80-94); Mean Platelet Volume 8 um3 (7.4-10.4); Nucleated Red Blood Cells % 0.5; Platelet Count 299 10^3/ul (150-450); Red Blood Count 2.97 10^6/ul (4.0-5.4); Red Cell Distribution Width 20 % (10.5-15); White Blood Count 5.2 10^3/ul (3.5-10.8)
[2017-10-10 12:30] LABS: INR 0.89 (0.77-1.02)
[2017-10-10 12:37] LABS: EGFR Non-African American 86.5 (>60)
[2017-10-10] MEDS ORDERED: Morphine INJ* 4 MG/ML 1 ML SYRINGE (NEW SYRINGE VERSION) IV ONE (13:27)
[2017-10-10] MEDS ORDERED: Ondansetron INJ* 2 MG/ML VIAL IV ONE (13:28)
[2017-10-10] MEDS ORDERED: NS 0.9% 1000 ML* 1,000 ML IV ONE ×2 (13:46→19:00)
[2017-10-10] MEDS ORDERED: Morphine INJ* 2 MG/ML 1 ML CARPUJECT IV PRN (15:01)
[2017-10-10] MEDS ORDERED: Al Hydrox/Mg Hydrox/Simet LIQ* 30 ML UDC PO PRN (15:01)
[2017-10-10] MEDS ORDERED: Ondansetron INJ* 2 MG/ML VIAL IV PRN (15:01)
[2017-10-10] MEDS ORDERED: Acetaminophen TAB* 325 MG PO PRN (15:01)
[2017-10-10] MEDS ORDERED: NS 0.9% 1000 ML* 1,000 ML IV SCH ×2 (15:15→19:35)
[2017-10-10] MEDS ORDERED: Iohexol 300* (CONTRAST) 10 ML SDV IV ONE (15:19)
[2017-10-10] MEDS ORDERED: fentaNYL PATCH 50 MCG/HR TRANSDERM SCH (16:00)
[2017-10-10] MEDS: fentaNYL PATCH 75 MCG/HR* 75 MCG TRANSDERM SCH (17:43)
[2017-10-10] MEDS: Enoxaparin(*) 60 MG/0.6 ML SYR SUBCUT SCH (17:46)
[2017-10-10] MEDS: fentaNYL Patch Check Q Shift 1 NOTE SCH (19:40)
--- NOTE | 2017-10-10 19:44 | RAD ---
INDICATION: Nausea. Multiple myeloma COMPARISON: MRI pelvis, lumbar, and thoracic spine September 26, 2017; CT chest May 05, 2017 TECHNIQUE: Axial source images were obtained from the thoracic inlet to the symphysis pubis following administration of oral and intravenous contrast. 81 mL Omnipaque 300 was utilized. Coronal and sagittal reconstructed images were acquired. CHEST FINDINGS: Neck/thyroid: The visualized neck to include the thyroid appear normal. Chest wall: There are no acute abnormalities of the bony thorax or chest wall. There is extensive myelomatous involvement of the spine and ribs as also documented on earlier MR imaging There is no supraclavicular, infraclavicular, or axillary lymphadenopathy. Lungs : There are no pulmonary parenchymal masses. A small nodule in the lingular segment as identified on the prior CT is no longer visualized. There is airspace disease in both lung bases which may reflect atelectasis. There is mild coarsening of the pulmonary interstitium. There are no endobronchial lesions. Cardiomediastinal structures: The heart is normal in size. There is no pericardial effusion. There is no evidence of aortic aneurysm or dissection. The pulmonary vessels appear normal. There is no mediastinal or hilar adenopathy. The esophagus appears normal. Pleura : There are no pleural-based masses or effusions. ABDOMINAL/PELVIC FINDINGS: Liver: The liver is normal in size. This is 6 mm hypodense lesion in the posterior right hepatic lobe which is too small to characterize but which is likely a cyst. There is no ductal dilatation. Gallbladder: There are no calcified gallstones. There is no evidence of wall thickening or pericholecystic fluid. Spleen: The spleen is normal in size. There are no masses. Pancreas: There is no evidence of pancreatic mass or ductal dilatation. Adrenal glands: There is a 1.7 cm left adrenal nodule. This represents a new finding. The right adrenal gland is normal. Kidneys: The kidneys are normal in size and position. There are prompt nephrograms and there is prompt excretion bilaterally. There are too numerous to count renal cysts. The largest cysts on the left and measures 8 cm. The second largest cyst is also left and measures 6.1 cm. Several cysts have thin septations and one or 2 have been calcified septations or cyst vieira. There is no evidence of nephrolithiasis. Adenopathy: There is a new 2.8 cm mass left splenic hilar region.. Fluid collections: There are no free or localized fluid collections. Vessels:There are atherosclerotic changes of the aorta. There is no focal aneurysm. The IVC is unremarkable GI tract: There are no acute CT bowel findings. There is no obstruction. The upper GI tract is unremarkable. The liver multiple diverticula of the sigmoid colon and to lesser degree the descending colon Pelvic organs: The prostate and seminal vesicles appear normal Bladder: There are no bladder masses. Abdominal and pelvic soft tissues: The extraperitoneal abdominal and pelvic soft tissues appear normal.. Osseous structures: There is extensive myelomatous involvement of the spine and bony pelvis with multiple lytic foci. A dominant lytic foci involves the left iliac bone and measures 4.9 cm. The extensive vertebral involvement is described on earlier MR imaging.. IMPRESSION: 1. Extensive myelomatous involvement of the spine, ribs, and bony pelvis. 2. Probable small hepatic cyst. Multiple bilateral renal cysts. 3. New 1.7 cm left adrenal mass. 4. New 2.8 cm mass in the splenic hilar region. 5. Diverticula of the sigmoid and descending colon.
--- NOTE | 2017-10-10 20:26 | ED ---
Jose Kapoor Stephanie, scribed for Fabienne Painter MD on 10/10/17 at 1234 . GI/ HPI - HPI Summary HPI Summary: The pt is a 72 y/o M presenting to the ED with c/o N/V/D that began on 10/08. Symptoms include general weakness. The pt denies SOB, fever, blood in stool or hematemesis. The pt states his last day of radiation (4th radiation appointment ) was yesterday. The pt states he is getting radiation on his L hip and LLE. The pt is diagnosed with multiple myeloma. The pt reports having a stem cell transplant in [place]. The pts pain is rated as a 7 in severity. - History of Current Complaint Chief Complaint: EDNauseaVomitDiarrh Time Seen by Provider: 10/10/17 11:58 Stated Complaint: VOMITING/DIAHREA Hx Obtained From: Patient, Family/Solder Sprayer - Onset/Duration: Started Days Ago - 2, Still Present Timing: Constant Pain Intensity: 8 Associated Signs and Symptoms: Positive: Weakness, Other: - LLE pain Aggravating Factor(s): Nothing Alleviating Factor(s): Nothing - Additional Pertinent History Primary Care Physician: [id number] - Allergy/Home Medications Allergies/Adverse Reactions: Allergies Allergy/AdvReac Type Severity Reaction Status Date / Time simvastatin Allergy Hives Verified 09/26/17 13:40 Home Medications: Home Medications HYDROmorphone TAB* [Dilaudid TAB*] 2 mg PO Q3H PRN 10/10/17 [History Confirmed 10/10/17] amLODIPine TAB* [Norvasc 5 mg TAB*] 5 mg PO DAILY 10/10/17 [History Confirmed ] fentaNYL PATCH 50 MCG/HR* [Duragesic PATCH 50 Mcg/Hr*] 50 mcg TRANSDERM Q72H [History Confirmed 10/10/17] PMH/Surg Hx/FS Hx/Imm Hx Endocrine/Hematology History: Denies: Hx Diabetes Cardiovascular History: Reports: Hx Hypertension Denies: Hx Pacemaker/ICD Respiratory History: Denies: Hx Asthma, Hx Chronic Bronchitis - "once" History: Denies: Hx Renal Disease Musculoskeletal History: Denies: Hx Osteoporosis Sensory History: Reports: Hx Contacts or Glasses Denies: Hx Hearing Aid Opthamlomology History: Reports: Hx Contacts or Glasses Psychiatric History: Denies: Hx Panic Disorder - Cancer History Cancer Type, Location and Year: MYELOMA Hx Chemotherapy: Yes - Surgical History Surgery Procedure, Year, and Place: 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, right ankle AGE 22 - Immunization History Date of Tetanus Vaccine: 01/01 Date of Influenza Vaccine: 08/03 Infectious Disease History: No Infectious Disease History: Denies: Traveled Outside the [place] in Last 30 Days - Family History Known Family History: Positive: Diabetes Family History: Mother and sister: stomach CA - Social History Occupation: Retired Lives: With Family Alcohol Use: Occasionally Substance Use Type: Reports: None Hx Tobacco Use: Yes Smoking Status (MU): Former Smoker Review of Systems Negative: Fever Negative: Shortness Of Breath Positive: Vomiting, Diarrhea, Nausea, Other - Negative: blood in stool, hematemesis Positive: Weakness All Other Systems Reviewed And Are Negative: Yes Physical Exam - Summary Physical Exam Summary: Appearance: Ill-appearing, moderate pain distress, thin Skin: Warm, color reflects adequate perfusion Head: Normal Head/Face inspection Eyes: Conjunctiva clear ENT: Dry oral mucosa Neck: Supple, no nodes, no JVD. Respiratory: Lungs clear, decreased breath sounds, no respiratory distress Cardio: RRR, No murmur, pulses normal, brisk capillary refill Abdomen: soft, nontender Bowel sounds: present Musculoskeletal: Strength Intact/ ROM intact. No calf tenderness. No edema. Neuro: Alert, muscle tone normal, facial symmetry, speech normal, sensory/motor intact Psychological: Normal Triage Information Reviewed: Yes Vital Signs On Initial Exam: Initial Vitals Temp Pulse Resp BP Pulse Ox 97.4 F 119 16 104/66 94 10/10/17 11:37 10/10/17 11:37 10/10/17 11:37 10/10/17 11:37 10/10/17 11:37 Vital Signs Reviewed: Yes Diagnostics - Vital Signs Vital Signs Temp Pulse Resp BP Pulse Ox 10/10/17 12:03 111 21 95 10/10/17 12:01 110/69 10/10/17 11:37 97.4 F 119 16 104/66 94 - Laboratory Lab Results: Lab Results 10/10/17 Range/Units 12:10 WBC 5.2 (3.5-10.8) 10^3/ul RBC 2.97 L (4.0-5.4) 10^6/ul Hgb 9.1 L (14.0-18.0) g/dl Hct 27 L (42-52) % MCV 91 (80-94) fL MCH 31 (27-31) pg MCHC 34 (31-36) g/dl RDW 20 H (10.5-15) % Plt Count 299 (150-450) 10^3/ul MPV 8 (7.4-10.4) um3 Neut % (Auto) 78.8 (38-83) % Lymph % (Auto) 9.9 L (25-47) % [place] % (Auto) 11.1 H (0-7) % Eos % (Auto) 0.1 (0-6) % Baso % (Auto) 0.1 (0-2) % Absolute Neuts (auto) 4.1 (1.5-7.7) 10^3/ul Absolute Lymphs (auto) 0.5 L (1.0-4.8) 10^3/ul Absolute Monos (auto) 0.6 (0-0.8) 10^3/ul Absolute Eos (auto) 0 (0-0.6) 10^3/ul Absolute Basos (auto) 0 (0-0.2) 10^3/ul Absolute Nucleated RBC 0 10^3/ul Nucleated RBC % 0.5 Result Diagrams: 10/10/17 12:10 10/10/17 12:10 Lab Statement: Any lab studies that have been ordered have been reviewed, and results considered in the medical decision making process. GIGU Course/Dx - Course Course Of Treatment: At 13:27, ED physician spoke with Dr. Manley who agrees to admit the pt. - Diagnoses Provider Diagnoses: Multiple myeloma, Vomiting, Chronic pain - Physician Notifications Discussed Care Of Patient With: Jeffy Manley - Dr. Manley agrees to admit the pt. Time Discussed With Above Provider: 13:27 Discharge - Discharge Plan Condition: Stable Disposition: ADMITTED TO [facility] Referrals: Jeffy Manley MD [Primary Care Provider] - The documentation as recorded by the Jose childress Stephanie accurately reflects the service I personally performed and the decisions made by , Fabienne Painter MD.
[2017-10-10] MEDS: Acyclovir* 400 MG TAB PO SCH (22:40)
[2017-10-10 23:25] LABS: Urine Appearance Cloudy; Urine Blood 1+ (Negative); Urine Color Yellow; Urine Ketones Negative (Negative); Urine Protein 2+(100 mg/dL) (Negative); Urine Urobilinogen Negative (Negative)
[2017-10-11] MEDS: Zolpidem TAB* 5 MG PO SCH ×2 (02:09→22:54)
--- NOTE | 2017-10-11 04:52 | HP ---
HISTORY AND PHYSICAL: DATE OF ADMISSION: CHIEF COMPLAINT: Pain and cannot eat. HISTORY OF PRESENT ILLNESS: This is a 72-year-old male with a history of refractory multiple myeloma. He has recently progressed on daratumumab, bortezomib, and dexamethasone. He has been undergoing radiation therapy to pelvic disease over this past week. He received 3 doses of radiation and then skipped a fourth dose today. He has had multiple delays because of recurrent viral illness and feeling poorly. He has not tolerated radiation well. He has had diarrhea as well as a marked increase in nausea. He has several times during the week and then this morning felt too weak to go to treatment. He has had pain around his chest, arms as well as both hips and pelvis. did notice some improvement with radiation in the hip and pelvic pain. However, overall pain has escalated significantly. He is not able to take his oral pain medicines at home and he rates his pain as a 9/10 in the emergency room today. He has continued to lose weight, he has felt very dehydrated, decreased urine output. He has not been short of breath, no fever, chills, or night sweats, no chest pain, diarrhea, normal urinary function. PAST MEDICAL HISTORY: 1. Pulmonary embolus, April 2017. 2. Multiple myeloma diagnosed in June 2015 with IgG [place], monoclonal protein of 3.89 g and biopsy 40% plasma cells. He had CyBOrD x3 cycles without response and changed to RVD. 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 He started Revlimid in August 2016, but tolerated poorly and had recurrent disease in June 2017 , approximately 1 year after transplant. He was started on daratumumab, Velcade , and dexamethasone on 07/17/17 and found to have progressive disease after 2 cycles in September 2017. Referred to Radiation. 3. Hypertension. 4. Hyperlipidemia. PAST SURGICAL HISTORY: Right ankle repair. MEDICATIONS: 1. Acyclovir 400 mg b.i.d. 2. Colace 100 mg p.r.n. 3. Fentanyl 15 mcg daily (increased by Dr. Valdez 2 days ago) 4. Meclizine 25 mg q.8 p.r.n. 5. Senna p.r.n. 6. Xarelto 20 mg daily. ALLERGIES: SIMVASTATIN. FAMILY HISTORY: COPD and lung cancer in the family. SOCIAL HISTORY: , one son lives in the area, two grandchildren. Very supportive family. He is retired and works for the [employer] in the [employer]. Remote smoking history. REVIEW OF SYSTEMS: As noted in HPI. A 14-point system otherwise reviewed and negative. PHYSICAL EXAMINATION VITAL SIGNS: Temperature 98.2, BP 80/54, heart rate 95, respirations 16, O2 sat 97%. HEENT: Cachectic. Mucosa dry. No lesions. No lymphadenopathy. LUNGS: Clear to auscultation. HEART: Regular rate and rhythm. S1, S2. Tachycardic. ABDOMEN: Nontender, nondistended. No hepatosplenomegaly. LYMPH NODES: No peripheral lymphadenopathy. SKIN: Without lesions or breakdown. EXTREMITIES: No clubbing, cyanosis, good pulses and they are warm. LABORATORY DATA: Including hemoglobin 9.1, platelets 299, white count 5.2. He has a creatinine of 0.87, BUN of 23, glucose 141, normal LFTs. C-reactive protein at 340. Albumin 2.9 and globulin elevated at 4.7, and a lactic acid of 4.6. ASSESSMENT AND PLAN: A 72-year-old male with relapse refractory multiple myeloma who has progressed on salvage therapy with daratumumab and bortezomib. He has had progressive poor performance and very difficult symptom control including longstanding pain and poor oral intake as an outpatient. He is now being admitted for symptoms control, hydration and to plan additional therapy. 1. Dehydration. Elevated lactic acid and elevated BUN. We will hydrate with a 1 L bolus and then normal saline at 150 cc an hour. He has had almost no oral intake, persistent diarrhea. 2. GI. Given persistent anorexia and weight loss, I am going to give him a trial of megestrol 800 mg daily. There is an increased risk of thrombosis and he has a history of pulmonary embolism. However, he is on full dose anticoagulation. I feel the risk-benefit ratio is favorable as a palliative medicine. 3. Anticoagulation. Hold Xarelto and we will start Lovenox 60 mg sq b.i.d. 4. Persistent nausea and some difficulty with swallowing. I am worried that there is additional disease we are unaware of. He could have visceral metastasis from his myeloma or compression of the esophagus from extramedullary disease. We will check CT scan of the chest, abdomen and pelvis with contrast. 5. Pain control. We will continue the fentanyl 50 mcg as it was increased yesterday. We will give IV morphine as breakthrough until he is reliably eating. 6. Discussed end of life issues and options for therapy with the family. - I am not sure additional chemotherapy will be effective. If we are going to treat him, it will need to be next week given rate of progression. He would be a candidate for VAD, which is vincristine 0.4 mg and doxorubicin 9 mg/m2 daily, both CI for 4 days with high dose dexamethasone 4 days on, 4 days off q 28.. Response rate is 60% in patients with refractory disease and multiple prior therapies. Response would be short lived and likely only benefit him longer term if it was followed by response to IMid therapy, Pomalidomide. - Hospice is a very reasonable alternative for him and we discuss the benefit of higher quality of life. After extensive family discussion, we decided to start him on hydration over the weekend and then decide about additional treatment once he is stable. Full code at this time. 8. Check echocardiogram in preparation for potential anthracyclines. [id number]/CPS #: [id number] [facility]
[2017-10-11] MEDS: Enoxaparin(*) 60 MG/0.6 ML SYR SUBCUT SCH ×2 (05:59→16:54)
[2017-10-11 06:29] LABS: ABS Basophils 0 10^3/ul (0-0.2); ABS Eosinophils 0 10^3/ul (0-0.6); ABS Lymphocytes 1.8 10^3/ul (1.0-4.8); ABS Monocytes 0.7 10^3/ul (0-0.8); ABS Neutrophils 2.7 10^3/ul (1.5-7.7); ABS Nucleated RBC 0 10^3/ul; Eosinophil % 0.3 % (0-6); Hematocrit 24 % (42-52); Hemoglobin 8.2 g/dl (14.0-18.0); Lymphocyte % 34.4 % (25-47); Mean Corpuscular HGB Conc 34 g/dl (31-36); Mean Corpuscular Hemoglobin 31 pg (27-31); Mean Corpuscular Volume 92 fL (80-94); Mean Platelet Volume 8 um3 (7.4-10.4); Nucleated Red Blood Cells % 0.4; Platelet Count 281 10^3/ul (150-450); Red Blood Count 2.61 10^6/ul (4.0-5.4); Red Cell Distribution Width 20 % (10.5-15); White Blood Count 5.3 10^3/ul (3.5-10.8)
[2017-10-11 06:44] LABS: EGFR Non-African American 104.3 (>60)
[2017-10-11] MEDS: fentaNYL Patch Check Q Shift 1 NOTE SCH ×2 (06:49→18:53)
[2017-10-11] MEDS: Acyclovir* 400 MG TAB PO SCH ×2 (08:46→22:18)
[2017-10-11] MEDS: Megestrol SUSP* 400 MG/10 ML UDC PO SCH (08:49)
[2017-10-11] MEDS ORDERED: amLODIPine TAB* 5 MG PO SCH (09:00)
[2017-10-11] MEDS ORDERED: Loperamide CAP* 2 MG PO PRN (09:48)
[2017-10-11] MEDS ORDERED: oxyCODONE TAB* 5 MG TAB PO PRN (09:48)
--- NOTE | 2017-10-11 09:55 | PN ---
Progress Note - Progress Note Date of Service: 10/11/17 SOAP: Subjective: []Much better. Pain is controlled today and is not needed so far today. He is eating better, hungry. Still difficulty swallowing, good stuck in throat, some pain. One episode of diarrhea and stopped. Breathing fine. No fevers. Has not gotten out of bed much. Acetaminophen (Tylenol Tab*) 650 mg PO Q4H PRN PRN Reason: FEVER/PAIN Last Admin: 10/11/17 05:56 Dose: 650 mg Acyclovir (Zovirax Tab*) 400 mg PO BID [facility] Last Admin: 10/11/17 08:46 Dose: 400 mg Al Hydrox/Mg Hydrox/Simethicone (Maalox Plus*) 30 ml PO Q6H PRN PRN Reason: INDIGESTION Enoxaparin Sodium (Lovenox(*)) 60 mg SUBCUT Q12H [facility] Last Admin: 10/11/17 05:59 Dose: 60 mg Fentanyl (Duragesic Patch 75 Mcg/Hr*) 75 mcg TRANSDERM Q72H [facility] Last Admin: 10/10/17 17:43 Dose: 75 mcg Sodium Chloride (Ns 0.9% 1000 Ml*) 1,000 mls @ 100 mls/hr IV PER RATE [facility] Loperamide HCl (Imodium Cap*) 2 mg PO .SEE DIRECTIONS PRN PRN Reason: DIARRHEA Megestrol Acetate (Megestrol Susp*) 800 mg PO DAILY [facility] Last Admin: 10/11/17 08:49 Dose: 800 mg Ondansetron HCl (Zofran Inj*) 4 mg IV Q4H PRN PRN Reason: NAUSEA/VOMITING Last Admin: 10/10/17 17:47 Dose: 4 mg Oxycodone HCl (Roxycodone Tab*) 5 mg PO Q4H PRN PRN Reason: PAIN Pharmacy Profile Note (Fentanyl Patch Check Q Shift) 1 note N/A 0700,1900 [facility] Last Admin: 10/11/17 06:49 Dose: 1 note Potassium Chloride (Klor Con Er Tab*) 20 meq PO BID [facility] Stop: 10/13/17 20:59 Zolpidem Tartrate (Ambien Tab*) 5 mg PO BEDTIME [facility] Last Admin: 10/11/17 02:09 Dose: Not Given Objective: [] Vital Signs Temp Pulse Resp BP Pulse Ox 97.4 F 77 16 109/67 97 10/11/17 07:46 10/11/17 07:46 10/11/17 08:54 10/11/17 07:46 10/11/17 07:46 HEENT - coating on tongue, no clear thrush CTA RRR S1S2 80s +BS NT ND Ext no edema, warm AAOx3 CT scan with adrenal nodule and splenic lesion, both likely myeloma. known bone disease. Assessment: []72 year old with refractory myeloma and extensive bone disease. Admitted with uncontrolled pain. Plan: []1. Pain improved and taking PO medication. Stop Morphine IV and go to Oxycodone 5 mg q 4 prn. 2. GI. Eating improved, will continue Megase today and tomorrow and if doing well stop. Pain with swallowing. Given steroids, will treat empirically with Fluconizole and follow. 3. FEN. Renal function stable. Hydrated. Continue IVF at 100 cc/hr and take po K -dur 20 bid for two days. Follow K and Mg 4. Cardiac. Echo pending prior to VAD 5. Risk of pathologic fracture. - PT to evaluate Gait and ADLs. - Zometa given on 09/08/17, give today 6. Anemia. Likely from myeloma, check Retic, B12, Iron. 7. Myeloma. CT scan was reviewed and again options discussed. He wants to go foward with treatment. Trials with VAD in refractory disease after multiple lines of therapy show a 60% response rate. If he does not respond or is not treated will likely from myeloma quickly. Risk of cytopenias, mouth soars, infection, nausea, neuropathy, over buttermaker continuous churn heart damage. - Plan VAD starting Friday - Palliative care consult time with patient and chart 40 min today
[2017-10-11] MEDS: NS 0.9% 1000 ML* 1,000 ML IV SCH (11:03)
[2017-10-11] MEDS: Potassium Chlor TAB* 20 MEQ TAB.ER PO SCH (22:18)
[2017-10-12] MEDS: NS 0.9% 1000 ML* 1,000 ML IV SCH (00:24)
[2017-10-12] MEDS: Enoxaparin(*) 60 MG/0.6 ML SYR SUBCUT SCH ×2 (06:14→15:54)
[2017-10-12] MEDS: fentaNYL Patch Check Q Shift 1 NOTE SCH ×2 (07:09→18:57)
[2017-10-12] MEDS: Megestrol SUSP* 400 MG/10 ML UDC PO SCH (08:53)
[2017-10-12] MEDS: Potassium Chlor TAB* 20 MEQ TAB.ER PO SCH ×2 (08:53→21:29)
[2017-10-12] MEDS: Acyclovir* 400 MG TAB PO SCH ×2 (08:53→21:28)
[2017-10-12] MEDS ORDERED: Docusate CAP* 100 MG PO PRN (09:20)
--- NOTE | 2017-10-12 09:24 | PN ---
Progress Note - Progress Note Date of Service: 10/12/17 SOAP: Subjective: []A little better today. Eating some but not much, part of each meal. Had donut and coffee this am. Pain is back a little last night, overall managed well. Wants to proceed with therapy tomorrow. Urinating well. Moving bowls just a little bit. Acetaminophen (Tylenol Tab*) 650 mg PO Q4H PRN PRN Reason: FEVER/PAIN Last Admin: 10/11/17 05:56 Dose: 650 mg Acyclovir (Zovirax Tab*) 400 mg PO BID [facility] Last Admin: 10/12/17 08:53 Dose: 400 mg Al Hydrox/Mg Hydrox/Simethicone (Maalox Plus*) 30 ml PO Q6H PRN PRN Reason: INDIGESTION Docusate Sodium (Colace Cap*) 100 mg PO BID PRN PRN Reason: CONSTIPATION Enoxaparin Sodium (Lovenox(*)) 60 mg SUBCUT Q12H [facility] Last Admin: 10/12/17 06:14 Dose: 60 mg Fentanyl (Duragesic Patch 75 Mcg/Hr*) 75 mcg TRANSDERM Q72H [facility] Last Admin: 10/10/17 17:43 Dose: 75 mcg Hydromorphone HCl (Dilaudid Tab*) 4 mg PO Q4H PRN PRN Reason: PAIN Loperamide HCl (Imodium Cap*) 2 mg PO .SEE DIRECTIONS PRN PRN Reason: DIARRHEA Last Admin: 10/11/17 17:24 Dose: 2 mg Megestrol Acetate (Megestrol Susp*) 800 mg PO DAILY [facility] Last Admin: 10/12/17 08:53 Dose: 800 mg Ondansetron HCl (Zofran Inj*) 4 mg IV Q4H PRN PRN Reason: NAUSEA/VOMITING Last Admin: 10/10/17 17:47 Dose: 4 mg Pharmacy Profile Note (Fentanyl Patch Check Q Shift) 1 note N/A 0700,1900 [facility] Last Admin: 10/12/17 07:09 Dose: 1 note Potassium Chloride (Klor Con Er Tab*) 20 meq PO BID [facility] Stop: 10/13/17 20:59 Last Admin: 10/12/17 08:53 Dose: 20 meq Senna (Senokot Tab*) 1 tab PO DAILY [facility] Zolpidem Tartrate (Ambien Tab*) 5 mg PO BEDTIME [facility] Last Admin: 10/11/17 22:54 Dose: Not Given Objective: [] Vital Signs Temp Pulse Resp BP Pulse Ox 97.9 F 89 18 130/84 98 10/12/17 08:12 10/12/17 08:12 10/12/17 08:12 10/12/17 08:12 10/12/17 08:12 HEENT - coating on tongue, no clear thrush CTA RRR S1S2 80s +BS NT ND Ext no edema, warm AAOx3 Assessment: []72 year old with refractory myeloma and extensive bone disease. Admitted with uncontrolled pain. Plan: []1. Pain improved and taking PO medication. Dilaudid 4 mg po q 4 prn. Continue Fentanyl. 2. GI. Eating improved, will continue Megasw Pain with swallowing. Given steroids, Fluconizole 200 mg per day for 5 days and follow. 3. FEN. Renal function stable. Hold IVF and follow Mg, K. Labs pending today. 4. Cardiac. Echo pending prior to VAD 5. Risk of pathologic fracture. - PT to evaluate - Encouraged wakling - Zometa given on 09/2417 6. Anemia. Further drop today. Likely from myeloma, check Retic, B12, Iron. 7. Myeloma. He wants to go foward with treatment. Trials with VAD in refractory disease after multiple lines of therapy show a 60% response rate. If he does not respond or is not treated will likely from myeloma quickly. Risk of cytopenias, mouth soars, infection, nausea, neuropathy, over terminal carman heart damage. - Plan VAD starting tomorrow - Palliative care consult
[2017-10-12 09:25] LABS: Hematocrit 24 % (42-52); Hemoglobin 7.9 g/dl (14.0-18.0); Mean Corpuscular HGB Conc 33 g/dl (31-36); Mean Corpuscular Hemoglobin 31 pg (27-31); Mean Corpuscular Volume 92 fL (80-94); Mean Platelet Volume 7 um3 (7.4-10.4); Platelet Count 236 10^3/ul (150-450); Red Blood Count 2.57 10^6/ul (4.0-5.4); Red Cell Distribution Width 19 % (10.5-15); White Blood Count 5.5 10^3/ul (3.5-10.8)
[2017-10-12] MEDS: HYDROmorphone TAB* 4 MG PO PRN ×3 (09:42→21:28)
[2017-10-12 09:50] LABS: EGFR Non-African American 140.9 (>60)
[2017-10-12 10:00] LABS: ABS Basophils 0 10^3/ul (0-0.2); ABS Eosinophils 0 10^3/ul (0-0.6); ABS Lymphocytes 1.4 10^3/ul (1.0-4.8); ABS Monocytes 0.7 10^3/ul (0-0.8); ABS Neutrophils 3.4 10^3/ul (1.5-7.7); ABS Nucleated RBC 0 10^3/ul; Eosinophil % 0.3 % (0-6); Lymphocyte % 25.4 % (25-47); Nucleated Red Blood Cells % 0.5
[2017-10-12 10:47] LABS: Corrected Retic Count 1.1 % (0.5-1.5); Hematocrit for Retic CNT 23 % (42-52); Immature Retic Fraction 0.56; RBC Retic Count 2.54 10^6/ul (4.6-6.2)
--- NOTE | 2017-10-12 13:07 | ECHO ---
Patient: SATNAM BENOIT [facility] Rec#: [id number] : 1945 Date: 10/12/2017 Age: 72y Height: 172.72 cm / 68.0 in Weight: 61.23 kg / 135.0 lbs Sex: M BSA: 1.73 Room#: 406 Admit Date#: 10/10/2017 Type: Inpatient Referring: Jeffy Manley MD Reading: Gabriel Carrillo DO Web Content & Social Media Manager: Maite Krause RDCS,RDMS Transthoracic Echocardiogram Indication: Chemotherapy BP: 123/76 HR: 82 Rhythm: NSR Findings History: PE, HTN, HLD, multiple myeloma, radiation, chemotherapy Technical Comments: The study quality is good. Left Ventricle: The left ventricular chamber size is normal. Mild concentric left ventricular hypertrophy is observed. There is a prominent septal knuckle. Global left ventricular wall motion and contractility are within normal limits. There is normal left ventricular systolic function. The estimated ejection fraction is 60-65%. Normal left atrial size makes clinically significant diastolic dysfunction unlikely. Left Atrium: The left atrial chamber size is normal. Right Ventricle: The right ventricular chamber size and systolic function are within normal limits. Right Atrium: The right atrium is slightly dilated. Aortic Valve: The aortic valve is trileaflet. The aortic valve leaflets are mildly thickened.and there is mild annulus calcification There is no evidence of aortic regurgitation. There is no evidence of aortic stenosis. Mitral Valve: Mild mitral annular calcification present. The mitral valve leaflets are mildly thickened. There is a trace of mitral regurgitation. There is no evidence of mitral stenosis. Tricuspid Valve: The tricuspid valve leaflets are normal. There is trace tricuspid regurgitation. No pulmonary hypertension is noted. Pulmonic Valve: The pulmonic valve structure is not well visualized. Pericardium: There is no significant pericardial effusion. Aorta: There is no dilatation of the ascending aorta. There is no dilatation of the aortic arch. There is mild dilatation of the aortic root. Pulmonary Artery: The main pulmonary artery is not well visualized. Venous: The inferior vena cava is dilated. There is less than 50% respiratory change in the inferior vena cava dimension. Conclusions The left ventricular chamber size is normal. Mild concentric left ventricular hypertrophy is observed. The estimated ejection fraction is 60-65%. There is normal left ventricular systolic function. Global left ventricular wall motion and contractility are within normal limits. The left atrial chamber size is normal. The right ventricular chamber size and systolic function are within normal limits. No functionally significant valvular abnormalities noted. There is no significant pericardial effusion. No prior studies available for comparison at time of interpretation Measurements Name Value Normal Range RVIDd (AP) 2D 2.6 cm (0.9 - 2.6) RVDdMajor (2D) 3.1 cm (2.2 - 4.4) RAd ISD 4CH 5.1 cm (3.4 - 4.9) RA (A4C)W 4.4 cm (2.9 - 4.6) IVSd (2D) 1.1 cm (0.6 - 1) LVPWd (2D) 1.2 cm (0.6 - 1) LVIDd (2D) 4.1 cm (3.6 - 5.4) LVIDs (2D) 2.8 cm - LV FS (2D) 30 % (25 - 45) Aortic Annulus 2.1 cm (1.4 - 2.6) Ao root diameter (2D) 3.8 cm (2.1 - 3.5) Ascending Ao 3.2 cm (2.1 - 3.4) Aortic arch 2.5 cm (1.8 - 3.4) LA dimension (AP) 2D 2.8 cm (2.3 - 3.8) LAd ISD 4CH 5 cm (2.9 - 5.3) LA ISD 4CH W 3.3 cm (2.5 - 4.5) Name Value Normal Range MV E-wave Vmax 0.7 m/sec - MV deceleration time 122 msec - MV A-wave Vmax 0.9 m/sec - MV E:A ratio 0.8 ratio - LV lateral e' Vmax 0.07 m/sec - LV E:e' lateral ratio 10 ratio - Name Value Normal Range AV Vmax 1.5 m/sec - AV VTI 27 cm - AV peak gradient 9 mmHg - AV mean gradient 4.5 mmHg - LVOT Vmax 1.1 m/sec - LVOT VTI 21.5 cm - LVOT peak gradient 5 mmHg - LVOT mean gradient 2.2 mmHg - JH Vmax 0.7 m/sec - Name Value Normal Range TR Vmax 2.4 m/sec - TR peak gradient 23 mmHg - RAP 3 mmHg - RVSP 26 mmHg - IVC diameter 2.4 cm - Name Value Normal Range PV Vmax 0.8 m/sec - PV peak gradient 2.3 mmHg -
[2017-10-12] MEDS: Senna TAB PO SCH (21:29)
[2017-10-12] MEDS: Zolpidem TAB* 5 MG PO SCH (21:37)
[2017-10-13] MEDS: HYDROmorphone TAB* 4 MG PO PRN ×2 (02:37→21:05)
[2017-10-13] MEDS: Enoxaparin(*) 60 MG/0.6 ML SYR SUBCUT SCH ×2 (04:55→17:44)
[2017-10-13 06:26] LABS: Hematocrit 25 % (42-52); Hemoglobin 8.4 g/dl (14.0-18.0); Mean Corpuscular HGB Conc 34 g/dl (31-36); Mean Corpuscular Hemoglobin 31 pg (27-31); Mean Corpuscular Volume 92 fL (80-94); Mean Platelet Volume 8 um3 (7.4-10.4); Platelet Count 277 10^3/ul (150-450); Red Blood Count 2.72 10^6/ul (4.0-5.4); Red Cell Distribution Width 19 % (10.5-15); White Blood Count 7.2 10^3/ul (3.5-10.8)
[2017-10-13 06:40] LABS: EGFR Non-African American 104.3 (>60)
[2017-10-13] MEDS: fentaNYL Patch Check Q Shift 1 NOTE SCH ×2 (06:53→19:07)
[2017-10-13 06:55] LABS: ABS Basophils 0 10^3/ul (0-0.2); ABS Eosinophils 0 10^3/ul (0-0.6); ABS Lymphocytes 2.4 10^3/ul (1.0-4.8); ABS Monocytes 0.9 10^3/ul (0-0.8); ABS Neutrophils 3.9 10^3/ul (1.5-7.7); ABS Nucleated RBC 0 10^3/ul; Eosinophil % 0.2 % (0-6); Lymphocyte % 33.5 % (25-47); Nucleated Red Blood Cells % 0.4
[2017-10-13] MEDS: Senna TAB PO SCH (09:30)
[2017-10-13] MEDS: Potassium Chlor TAB* 20 MEQ TAB.ER PO SCH ×2 (09:30→21:06)
[2017-10-13] MEDS: Acyclovir* 400 MG TAB PO SCH ×2 (09:30→21:06)
[2017-10-13] MEDS: Fluconazole 100 MG TAB* TAB PO SCH (09:31)
[2017-10-13] MEDS ORDERED: KCL 10 MEQ/50 ML IVPREMIX* 10 MEQ/50 ML BAG IV SCH (10:00)
[2017-10-13] MEDS ORDERED: NS 0.9% 1000 ML* 1,000 ML IV ONE (11:09)
[2017-10-13] MEDS ORDERED: Prochlorperazine TAB* 10 MG PO PRN (11:20)
--- NOTE | 2017-10-13 11:20 | PN ---
Progress Note - Progress Note Date of Service: 10/13/17 SOAP: Subjective: []Pain better today, fatigued. Eating a little better but not great. Has been up and moving around. Some swelling in foot yesterday but better today. Has not been moving bowls. Diarrhea at home, constipated in hospital Acetaminophen (Tylenol Tab*) 650 mg PO Q4H PRN PRN Reason: FEVER/PAIN Last Admin: 10/11/17 05:56 Dose: 650 mg Acyclovir (Zovirax Tab*) 400 mg PO BID [facility] Last Admin: 10/13/17 09:30 Dose: 400 mg Al Hydrox/Mg Hydrox/Simethicone (Maalox Plus*) 30 ml PO Q6H PRN PRN Reason: INDIGESTION Bisoprolol Fumarate (Zebeta Tab*) 5 mg PO DAILY [facility] Docusate Sodium (Colace Cap*) 100 mg PO BID PRN PRN Reason: CONSTIPATION Enoxaparin Sodium (Lovenox(*)) 60 mg SUBCUT Q12H [facility] Last Admin: 10/13/17 04:55 Dose: 60 mg Fentanyl (Duragesic Patch 75 Mcg/Hr*) 75 mcg TRANSDERM Q72H [facility] Last Admin: 10/10/17 17:43 Dose: 75 mcg Fluconazole (Diflucan 100 Mg Tab*) 200 mg PO DAILY [facility] Stop: 10/18/17 08:59 Last Admin: 10/13/17 09:31 Dose: 200 mg Heparin Sodium (Porcine) (Heparin Flush Picc/Ml/Cvc(*)) 0 ml FLUSH 0600,1800 [facility] PRN Reason: Protocol Hydromorphone HCl (Dilaudid Tab*) 4 mg PO Q4H PRN PRN Reason: PAIN Last Admin: 10/13/17 02:37 Dose: 4 mg Potassium Chloride 40 meq/ (Sodium Chloride) 270 mls @ 67.5 mls/hr IVPB ONCE ONE Stop: 10/13/17 13:59 Sodium Chloride (Ns 0.9% 1000 Ml*) 1,000 mls @ 1,000 mls/hr IV .PER RATE ONE Stop: 10/13/17 12:08 Loperamide HCl (Imodium Cap*) 2 mg PO .SEE DIRECTIONS PRN PRN Reason: DIARRHEA Last Admin: 10/11/17 17:24 Dose: 2 mg Ondansetron HCl (Zofran Inj*) 8 mg IV BID [facility] Stop: 10/17/17 20:59 Pharmacy Profile Note (Fentanyl Patch Check Q Shift) 1 note N/A 0700,1900 [facility] Last Admin: 10/13/17 06:53 Dose: 1 note Potassium Chloride (Klor Con Er Tab*) 20 meq PO BID [facility] Stop: 10/13/17 20:59 Last Admin: 10/13/17 09:30 Dose: 20 meq Potassium Chloride (Klor Con Er Tab*) 20 meq PO BID [facility] Stop: 10/15/17 20:59 Senna (Senokot Tab*) 1 tab PO DAILY [facility] Last Admin: 10/13/17 09:30 Dose: 1 tab Zolpidem Tartrate (Ambien Tab*) 5 mg PO BEDTIME [facility] Last Admin: 10/12/17 21:37 Dose: Not Given Objective: [] Vital Signs Temp Pulse Resp BP Pulse Ox 98.1 F 88 16 109/65 96 10/13/17 07:45 10/13/17 07:45 10/13/17 07:45 10/13/17 07:45 10/13/17 07:45 HEENT - coating on tongue, no clear thrush CTA RRR S1S2 80s +BS NT ND Ext no edema, warm AAOx3 Assessment: []72 year old with refractory myeloma and extensive bone disease. Admitted with uncontrolled pain. Better today and starting salvage chemotherapy wit VAD. Plan: []1. Pain improved and taking PO medication. Dilaudid 4 mg po q 4 prn. Continue Fentanyl. 2. GI. Eating improved, will follow on IV Dexamethasone 3. Fluconizole 200 mg per day for 5 days 3. FEN. Low potassium today, replete and check Mg. 1L NS. 4. Cardiac. Echo w/ normal EF 5. Risk of pathologic fracture. - Encouraged wakling - Zometa given on 09/2417 6. Anemia. Further drop today. Normal Iron and B12 7. Myeloma. He wants to go foward with treatment. Trials with VAD in refractory disease after multiple lines of therapy show a 60% response rate. If he does not respond or is not treated will likely from myeloma quickly. Risk of cytopenias, mouth soars, infection, nausea, neuropathy, over shelter heart damage. 8. Plan VAD starting today: - Vincristine 0.4 mg and doxorubicin 9 mg/m2 CI or 24 hrs x 4 days - Dexameathosne 40 mg daily 4 days on 4 days off repeat 24 hrs. 9. Zofran 8 bid standing and Compazine 10 mg prn nausea 10. Add laxative to bowl regimen 11. Protonix 40 daily while on steroids 12. Palliative care consult
[2017-10-13] MEDS: Potassium Chloride IV* 40 MEQ in NS 0.9% 250 ML* 250 ML IVPB ONE ×2 (11:42→14:24)
[2017-10-13] MEDS ORDERED: NS 0.9% IVPB SCH (12:00)
[2017-10-13] MEDS ORDERED: DEXAMETHASONE IVPB SCH (12:00)
[2017-10-13] MEDS: CMCS: Pantoprazole TAB (NF) 40 MG TAB PO SCH (14:24)
[2017-10-13] MEDS: NS 0.9% IVPB SCH (17:25)
[2017-10-13] MEDS: DOXORUBICIN IVPB SCH (17:25)
[2017-10-13] MEDS: VINCRISTINE IVPB SCH (17:25)
--- NOTE | 2017-10-13 17:27 | RAD ---
CPT II Codes: 6045F INDICATION: Myeloma COMPARISON: CT dated October 10, 2017 FLUOROSCOPY TIME: 24 seconds TECHNIQUE: The benefits and risks of the procedure were explained to the patient. The patient consented to the exam. A timeout was performed before beginning the procedure. Ultrasound of the left upper arm demonstrates a patent there is brachial vein, the more superficial of which was selected for PICC line access. Sterile precautions were employed, including standard sterile prep and drape, utilization of sterile gloves, gown, cap and mask. The skin and subcutaneous tissue overlying the vein was anesthetized with 1% lidocaine injected locally. Utilizing sonographic guidance the vein was accessed with a 21-gauge needle. An ultrasound image was recorded. A guidewire was advanced into the superior vena cava under fluoroscopic guidance. The peel-away sheath was advanced over the wire into the lumen of the vein. A 5-Indonesian double lumen PICC catheter was placed over a guidewire. The tip of the catheter was in the cavoatrial junction confirmed with fluoroscopy. The catheter was secured in place with an adhesive device and the percutaneous site was dressed with sterile gauze. The patient tolerated the procedure with no complications. IMPRESSION: PLACEMENT OF A 5-UKRAINIAN DOUBLE-LUMEN PICC CATHETER WITHOUT COMPLICATION. The PICC line is available for immediate use.
[2017-10-13] MEDS: fentaNYL PATCH 75 MCG/HR* 75 MCG TRANSDERM SCH (17:42)
[2017-10-13] MEDS: Ondansetron INJ* 2 MG/ML VIAL IV SCH (21:06)
[2017-10-13] MEDS: Zolpidem TAB* 5 MG PO SCH (21:07)
[2017-10-14] MEDS: HYDROmorphone TAB* 4 MG PO PRN ×3 (01:30→21:00)
[2017-10-14] MEDS: Enoxaparin(*) 60 MG/0.6 ML SYR SUBCUT SCH ×2 (05:25→17:01)
[2017-10-14 05:29] LABS: Hematocrit 23 % (42-52); Hemoglobin 7.8 g/dl (14.0-18.0); Mean Corpuscular HGB Conc 34 g/dl (31-36); Mean Corpuscular Hemoglobin 31 pg (27-31); Mean Corpuscular Volume 90 fL (80-94); Mean Platelet Volume 8 um3 (7.4-10.4); Platelet Count 215 10^3/ul (150-450); Red Cell Distribution Width 20 % (10.5-15); White Blood Count 5.4 10^3/ul (3.5-10.8)
[2017-10-14 06:03] LABS: ABS Basophils 0 10^3/ul (0-0.2); ABS Eosinophils 0 10^3/ul (0-0.6); ABS Lymphocytes 1.5 10^3/ul (1.0-4.8); ABS Monocytes 0.3 10^3/ul (0-0.8); ABS Neutrophils 3.5 10^3/ul (1.5-7.7); ABS Nucleated RBC 0 10^3/ul; Eosinophil % 0 % (0-6); Lymphocyte % 27.7 % (25-47); Nucleated Red Blood Cells % 0.2
[2017-10-14] MEDS: fentaNYL Patch Check Q Shift 1 NOTE SCH ×2 (07:14→19:20)
[2017-10-14] MEDS: Fluconazole 100 MG TAB* TAB PO SCH (09:27)
[2017-10-14] MEDS: Bisoprolol TAB* 5 MG PO SCH (09:27)
[2017-10-14] MEDS: Senna TAB PO SCH (09:30)
[2017-10-14] MEDS: Acyclovir* 400 MG TAB PO SCH ×2 (09:30→20:58)
[2017-10-14] MEDS: Potassium Chlor TAB* 20 MEQ TAB.ER PO SCH ×2 (09:31→20:59)
[2017-10-14] MEDS: CMCS: Pantoprazole TAB (NF) 40 MG TAB PO SCH (09:32)
[2017-10-14] MEDS: Ondansetron INJ* 2 MG/ML VIAL IV SCH ×2 (09:33→21:20)
[2017-10-14] MEDS: DEXAMETHASONE IVPB SCH (09:36)
[2017-10-14] MEDS: NS 0.9% IVPB SCH ×2 (09:36→15:01)
--- NOTE | 2017-10-14 10:54 | CONSULT ---
Palliative / Hospice Consult Ordering Provider: Jeffy Manley - Subjective Code Status: Full Code-Needs Follow Up Advance Directives Location: Filed at Another Location [facility] Part A Completed: Yes - DNR Date: 10/14/17 [facility] Part E Completed:: Yes - DNI, no FREEMAN, limited interventions HCP Completed: Yes - Shalonda - History or Present Illness History or Present Illness: This 72 year old man was diagnosed with multiple myeloma in June 2015, and has received chemotherapy and an autologous bone marrow transplant since that time, as well as more recently, radiation therapy directed to the pelvis, hips and left femur. He has had disabling side effects of therapy including nausea, anorexia, weight loss, dehydration, and increased pain. His left femur is severely involved with bony destruction, and he just received his second dose of Zometa. He has lost 5.6% ofhis body mass, and was just initiated on a trial of megestrol to hopefully improve his appetite and po intake. He experienced a PE in April 2017 and has been on Lovenox since that time. The patient did not tolerate his 2 radiation treatments well, and so this was discontinued. He was admitted on this occasion for 9/10 pain, mostly focused in the pelvic and hip area, which was apparently exacerbated by advancing dehydration at home. He has been using p.o. Dilaudid and Fentanyl 50 mcg patches for pain relief at home. Dr. Manley has discussed this patient's medical situation with him frankly, and he has an excellent understanding of his circumstances. He has elected a final attempt at disease control with VAD, initiated yesterday, but realizes this has a 60% chance of success in terms of positive response, but that his disease is ultimately incurable. We discussed his code status, which is full code at present, and he desires to change this. Although the patient has had 3 hospital admissions in the past few months, when he is hydrated and has adequate pain control he has a PPS of about 60% and is still independent with most ADLs. Lab Values: Abnormal Lab Results 10/13/17 10/14/17 10/14/17 06:07 05:21 05:21 WBC 5.4 RBC 2.50 L Hgb 7.8 L Hct 23 L MCV 90 MCH 31 MCHC 34 RDW 20 H Plt Count 215 MPV 8 Neut % (Auto) 65.9 Lymph % (Auto) 27.7 [place] % (Auto) 6.3 Eos % (Auto) 0 Baso % (Auto) 0.1 Absolute Neuts (auto) 3.5 Absolute Lymphs (auto) 1.5 Absolute Monos (auto) 0.3 Absolute Eos (auto) 0 Absolute Basos (auto) 0 Absolute Nucleated RBC 0 Nucleated RBC % 0.2 Sodium 140 140 Potassium 2.9 L 3.8 Chloride 108 108 Carbon Dioxide 23 21 L Anion Gap 9 11 BUN 8 10 Creatinine 0.74 0.66 L Est GFR ( Amer) 134.1 153.0 Est GFR (Non-Af Amer) 104.3 119.0 BUN/Creatinine Ratio 10.8 15.2 Glucose 109 H 143 H Calcium 8.6 8.3 L Magnesium 1.8 L 1.6 L Total Bilirubin 0.50 0.50 AST 34 47 H ALT 10 15 Alkaline Phosphatase 41 40 Total Protein 7.0 6.7 Albumin 2.7 L 2.5 L Globulin 4.3 H 4.2 H Albumin/Globulin Ratio 0.6 L 0.6 L Laboratory Last Values WBC 5.4 10^3/ul (3.5-10.8) 10/14/17 05:21 RBC 2.50 10^6/ul (4.0-5.4) L 10/14/17 05:21 RBC (Retic) 2.54 10^6/ul (4.6-6.2) L 10/12/17 09:04 Hgb 7.8 g/dl (14.0-18.0) L 10/14/17 05:21 Hct 23 % (42-52) L 10/14/17 05:21 HCT (Retic) 23 % (42-52) L 10/12/17 09:04 MCV 90 fL (80-94) 10/14/17 05:21 MCH 31 pg (27-31) 10/14/17 05:21 MCHC 34 g/dl (31-36) 10/14/17 05:21 RDW 20 % (10.5-15) H 10/14/17 05:21 Plt Count 215 10^3/ul (150-450) 10/14/17 05:21 MPV 8 um3 (7.4-10.4) 10/14/17 05:21 Neut % (Auto) 65.9 % (38-83) 10/14/17 05:21 Lymph % (Auto) 27.7 % (25-47) 10/14/17 05:21 [place] % (Auto) 6.3 % (0-7) 10/14/17 05:21 Eos % (Auto) 0 % (0-6) 10/14/17 05:21 Baso % (Auto) 0.1 % (0-2) 10/14/17 05:21 Absolute Neuts (auto) 3.5 10^3/ul (1.5-7.7) 10/14/17 05:21 Absolute Lymphs (auto) 1.5 10^3/ul (1.0-4.8) 10/14/17 05:21 Absolute Monos (auto) 0.3 10^3/ul (0-0.8) 10/14/17 05:21 Absolute Eos (auto) 0 10^3/ul (0-0.6) 10/14/17 05:21 Absolute Basos (auto) 0 10^3/ul (0-0.2) 10/14/17 05:21 Absolute Nucleated RBC 0 10^3/ul 10/14/17 05:21 Nucleated RBC % 0.2 10/14/17 05:21 Retic Count, Calc 2.1 % (0.5-1.5) H 10/12/17 09:04 Corrected Retic Count 1.1 % (0.5-1.5) 10/12/17 09:04 Retic Shift Factor 2.0 10/12/17 09:04 Retic Production Index 0.60 10/12/17 09:04 Immature Retic Fraction 0.56 10/12/17 09:04 Mean Retic Volume 108.5 10/12/17 09:04 INR (Anticoag Therapy) 0.89 (0.77-1.02) 10/10/17 12:10 Sodium 140 mmol/L (133-145) 10/14/17 05:21 Potassium 3.8 mmol/L (3.5-5.0) 10/14/17 05:21 Chloride 108 mmol/L (101-111) 10/14/17 05:21 Carbon Dioxide 21 mmol/L (22-32) L 10/14/17 05:21 Anion Gap 11 mmol/L (2-11) 10/14/17 05:21 BUN 10 mg/dL (6-24) 10/14/17 05:21 Creatinine 0.66 mg/dL (0.67-1.17) L 10/14/17 05:21 Est GFR ( Amer) 153.0 (>60) 10/14/17 05:21 Est GFR (Non-Af Amer) 119.0 (>60) 10/14/17 05:21 BUN/Creatinine Ratio 15.2 (8-20) 10/14/17 05:21 Glucose 143 mg/dL (70-100) H 10/14/17 05:21 Lactic Acid 3.9 mmol/L (0.5-2.0) H* 10/10/17 17:23 Calcium 8.3 mg/dL (8.6-10.3) L 10/14/17 05:21 Magnesium 1.6 mg/dL (1.9-2.7) L 10/14/17 05:21 Iron 41 ug/dL (50-212) L 10/12/17 12:06 TIBC 213 mcg/dL (250-450) L 10/12/17 12:06 % Saturation 19 % (15-55) 10/12/17 12:06 Unsat Iron Binding 172 ug/dL 10/12/17 12:06 Ferritin 689.2 ng/mL (24-336) H 10/12/17 12:06 Total Bilirubin 0.50 mg/dL (0.2-1.0) 10/14/17 05:21 AST 47 U/L (13-39) H 10/14/17 05:21 ALT 15 U/L (7-52) 10/14/17 05:21 Alkaline Phosphatase 40 U/L (34-104) 10/14/17 05:21 Total Creatine Kinase 56 U/L (10-223) 10/10/17 12:10 Troponin I 0.00 ng/mL (<0.04) 10/10/17 12:10 C-Reactive Protein 342.08 mg/L (< 5.00) H 10/10/17 12:10 B-Natriuretic Peptide 65 pg/mL (-100) 10/10/17 12:10 Total Protein 6.7 g/dL (6.4-8.9) 10/14/17 05:21 Albumin 2.5 g/dL (3.2-5.2) L 10/14/17 05:21 Globulin 4.2 g/dL (2-4) H 10/14/17 05:21 Albumin/Globulin Ratio 0.6 (1-3) L 10/14/17 05:21 Amylase 31 U/L (29-103) 10/10/17 12:10 Lipase 17 U/L (11.0-82.0) 10/10/17 12:10 Vitamin B12 294 pg/mL (180-914) 10/12/17 12:06 Urine Color Yellow 10/10/17 22:30 Urine Appearance Cloudy 10/10/17 22:30 Urine pH 5.0 (5-9) 10/10/17 22:30 Ur Specific [place] 1.040 (1.010-1.030) H 10/10/17 22:30 Urine Protein 2+(100 mg/dl) (Negative) H 10/10/17 22:30 Urine Ketones Negative (Negative) 10/10/17 22:30 Urine Blood 1+ (Negative) H 10/10/17 22:30 Urine Nitrate Negative (Negative) 10/10/17 22:30 Urine Bilirubin Negative (Negative) 10/10/17 22:30 Urine Urobilinogen Negative (Negative) 10/10/17 22:30 Ur Leukocyte Esterase Negative (Negative) 10/10/17 22:30 Urine WBC (Auto) Trace(0-5/hpf) (Absent) 10/10/17 22:30 Urine RBC (Auto) 1+(3-5/hpf) (Absent) H 10/10/17 22:30 Ur Squamous Epith Cells Present (Absent) H 10/10/17 22:30 Urine Bacteria Absent (Absent) 10/10/17 22:30 Hyaline Casts Present (Absent) H 10/10/17 22:30 Urine Glucose Negative (Negative) 10/10/17 22:30 - Objective Active Medications: Acetaminophen (Tylenol Tab*) 650 mg PO Q4H PRN PRN Reason: FEVER/PAIN Last Admin: 10/11/17 05:56 Dose: 650 mg Acyclovir (Zovirax Tab*) 400 mg PO BID [facility] Last Admin: 10/14/17 09:30 Dose: 400 mg Al Hydrox/Mg Hydrox/Simethicone (Maalox Plus*) 30 ml PO Q6H PRN PRN Reason: INDIGESTION Bisoprolol Fumarate (Zebeta Tab*) 5 mg PO DAILY [facility] Last Admin: 10/14/17 09:27 Dose: 5 mg Docusate Sodium (Colace Cap*) 100 mg PO BID PRN PRN Reason: CONSTIPATION Enoxaparin Sodium (Lovenox(*)) 60 mg SUBCUT Q12H [facility] Last Admin: 10/14/17 05:25 Dose: 60 mg Fentanyl (Duragesic Patch 75 Mcg/Hr*) 75 mcg TRANSDERM Q72H [facility] Last Admin: 10/13/17 17:42 Dose: 75 mcg Fluconazole (Diflucan 100 Mg Tab*) 200 mg PO DAILY [facility] Stop: 10/18/17 08:59 Last Admin: 10/14/17 09:27 Dose: 200 mg Heparin Sodium (Porcine) (Heparin Flush Picc/Ml/Cvc(*)) 0 ml FLUSH 0600,1800 [facility] PRN Reason: Protocol Last Admin: 10/14/17 05:25 Dose: 1 ml Hydromorphone HCl (Dilaudid Tab*) 4 mg PO Q4H PRN PRN Reason: PAIN Last Admin: 10/14/17 05:25 Dose: 4 mg Vincristine Sulfate 0.4 mg/Doxorubicin HCl 15 mg/ Sodium Chloride 1,000 mls @ 41.667 mls/hr IVPB Q24H [facility] Stop: 10/17/17 15:59 Last Admin: 10/13/17 17:25 Dose: 41.667 mls/hr Dexamethasone Sodium Phosphate (40 mg/ Sodium Chloride) 60 mls @ 120 mls/hr IVPB DAILY [facility] Stop: 10/18/17 08:59 Last Admin: 10/14/17 09:36 Dose: 120 mls/hr Loperamide HCl (Imodium Cap*) 2 mg PO .SEE DIRECTIONS PRN PRN Reason: DIARRHEA Last Admin: 10/11/17 17:24 Dose: 2 mg Ondansetron HCl (Zofran Inj*) 8 mg IV BID [facility] Stop: 10/17/17 20:59 Last Admin: 10/14/17 09:33 Dose: 8 mg Pantoprazole Sodium (Protonix Tab (Nf)) 40 mg PO DAILY [facility] Last Admin: 10/14/17 09:32 Dose: 40 mg Pharmacy Profile Note (Fentanyl Patch Check Q Shift) 1 note N/A 0700,1900 [facility] Last Admin: 10/14/17 07:14 Dose: 1 note Potassium Chloride (Klor Con Er Tab*) 20 meq PO BID [facility] Stop: 10/15/17 20:59 Last Admin: 10/14/17 09:31 Dose: 20 meq Prochlorperazine (Compazine Tab*) 10 mg PO Q6HR PRN PRN Reason: NAUSEA Senna (Senokot Tab*) 1 tab PO DAILY [facility] Last Admin: 10/14/17 09:30 Dose: 1 tab Zolpidem Tartrate (Ambien Tab*) 5 mg PO BEDTIME [facility] Last Admin: 10/13/17 21:07 Dose: Not Given Vital Signs: Vital Signs: Temp Pulse Resp BP Pulse Ox 98.1 F 86 16 134/79 97 10/14/17 07:35 10/14/17 07:35 10/14/17 08:02 10/14/17 07:35 10/14/17 07:35 Patient Weight: Weight 127 lb 4.8 oz Intake and Output: Intake & Output 10/12/17 10/13/17 10/14/17 10/15/17 06:59 06:59 06:59 06:59 Intake Total 2586 880 3208 240 Balance 2586 880 3208 240 Intake: IV Fluids 1995 1118 NS (0.9%) 1995 1118 IVPB 270 potassium 270 Oral 536 306 5725 240 Other: Estimated Void Medium Small Medium # Bowel Movements 0 1 0 Estimated Stool Amount Small # Voids 1 2 2 ADLs: Meal Record Start: 10/10/17 15: 50 Freq: DAILY@0900,1400,1800 Status: Active Protocol: Document 10/10/17 18:00 [id number] (Rec: 10/10/17 18:16 [id number] MED-C07) Document 10/11/17 14:00 [id number] (Rec: 10/11/17 18:08 [id number] MED-C05) Document 10/11/17 18:00 [id number] (Rec: 10/11/17 22:22 [id number] MED-C05) Document 10/12/17 09:00 [id number] (Rec: 10/12/17 09:45 [id number] MED-M20) Document 10/12/17 14:00 [id number] (Rec: 10/12/17 14:11 [id number] MED-C11) Document 10/12/17 18:00 [id number] (Rec: 10/12/17 22:37 [id number] MED-C05) Document 10/13/17 09:00 [id number] (Rec: 10/13/17 09:25 [id number] MED-C09) Document 10/13/17 13:02 [id number] (Rec: 10/13/17 13:03 [id number] MED-C09) Document 10/13/17 18:00 [id number] (Rec: 10/13/17 20:56 [id number] MED-C09) Document 10/14/17 09:00 [id number] (Rec: 10/14/17 10:05 [id number] MED-C09) Intake and Output Start: 10/10/17 15: 50 Freq: DAILY@0600,1400,2200 Status: Active Protocol: Document 10/10/17 21:44 [id number] (Rec: 10/10/17 21:44 [id number] MED-C07) Document 10/11/17 04:02 [id number] (Rec: 10/11/17 04:02 [id number] MED-C26) Document 10/11/17 22:00 [id number] (Rec: 10/11/17 22:26 [id number] MED-C05) Document 10/12/17 04:05 [id number] (Rec: 10/12/17 04:05 [id number] MEDL-C01) Document 10/12/17 14:00 [id number] (Rec: 10/12/17 14:11 [id number] MED-C11) Document 10/12/17 22:00 [id number] (Rec: 10/12/17 22:38 [id number] MED-C05) Document 10/13/17 03:49 [id number] (Rec: 10/13/17 03:50 [id number] MEDL-C01) Document 10/13/17 13:02 [id number] (Rec: 10/13/17 13:03 [id number] MED-C09) Document 10/13/17 22:00 [id number] (Rec: 10/13/17 22:43 [id number] MED-C09) Document 10/14/17 05:39 [id number] (Rec: 10/14/17 05:39 [id number] MED-C26) General Impression: Pleasant, articulate man sitting upright in bed in NAD. Head: Symmetrical Eyes: No Scleral Icterus Ears/Nose/Mouth/Throat: Clear Oropharnyx Neck: Trachea Midline Cardiovascular: RRR Respiratory: Symmetrical Chest Expansion and Respiratory Effort Abdominal: NL Sounds; No Tenderness; No Distention Extremities: No Edema Neurological: Alert and Oriented x 3 - Assessment Assessment: 72 year old with refractory multiple myeloma, opting for VAD as a final effort to control disease, but very educated about his disease and its prognosis. He filled out a [facility] form specifying DNR/DNI/ no FREEMAN, but still elects limited interventions (i.e. his chemotherapy) and hospitalization for symptom control if needed. I discussed our PATH program for which he would be an excellent candidate, but [place] in [facility], so I have requested that he be referred to [facility]'s palliative program there. Thank you for asking me to see this very pleasant patient and his . - Plan Consult Plan (MU): Palliative - Time On Unit Date of Evaluation: 10/14/17 Hospice Consult Time in: 10:00 Hospice Consult Time Out: 11:00 Hospice Consult Time Total: 60
[2017-10-14] MEDS: VINCRISTINE IVPB SCH (15:01)
[2017-10-14] MEDS: DOXORUBICIN IVPB SCH (15:01)
[2017-10-14] MEDS: Zolpidem TAB* 5 MG PO SCH (21:40)
[2017-10-15] MEDS: Enoxaparin(*) 60 MG/0.6 ML SYR SUBCUT SCH ×2 (06:35→16:24)
--- NOTE | 2017-10-15 08:02 | PN ---
Progress Note - Progress Note Date of Service: 10/15/17 SOAP: Subjective: feeling great today. no nausea, vomiting, diarrhea or constipation. good energy. pain under good control w dilaudid Objective: Vital Signs Temp Pulse Resp BP Pulse Ox 97.3 F 72 16 135/83 99 10/15/17 03:16 10/15/17 03:16 10/15/17 03:16 10/15/17 03:16 10/15/17 03:16 sitting up getting chemo perr eomi op moist left arm picc with some oozing around site, nontender CTA bl s1 s 2 nl soft nt +Bs trace le edema A+O x 3 Acetaminophen (Tylenol Tab*) 650 mg PO Q4H PRN PRN Reason: FEVER/PAIN Last Admin: 10/11/17 05:56 Dose: 650 mg Acyclovir (Zovirax Tab*) 400 mg PO BID [facility] Last Admin: 10/14/17 20:58 Dose: 400 mg Al Hydrox/Mg Hydrox/Simethicone (Maalox Plus*) 30 ml PO Q6H PRN PRN Reason: INDIGESTION Bisoprolol Fumarate (Zebeta Tab*) 5 mg PO DAILY [facility] Last Admin: 10/14/17 09:27 Dose: 5 mg Docusate Sodium (Colace Cap*) 100 mg PO BID PRN PRN Reason: CONSTIPATION Enoxaparin Sodium (Lovenox(*)) 60 mg SUBCUT Q12H [facility] Last Admin: 10/15/17 06:35 Dose: 60 mg Fentanyl (Duragesic Patch 75 Mcg/Hr*) 75 mcg TRANSDERM Q72H [facility] Last Admin: 10/13/17 17:42 Dose: 75 mcg Fluconazole (Diflucan 100 Mg Tab*) 200 mg PO DAILY [facility] Stop: 10/18/17 08:59 Last Admin: 10/14/17 09:27 Dose: 200 mg Heparin Sodium (Porcine) (Heparin Flush Picc/Ml/Cvc(*)) 0 ml FLUSH 0600,1800 [facility] PRN Reason: Protocol Last Admin: 10/15/17 06:34 Dose: 1 ml Hydromorphone HCl (Dilaudid Tab*) 4 mg PO Q4H PRN PRN Reason: PAIN Last Admin: 10/14/17 21:00 Dose: 4 mg Vincristine Sulfate 0.4 mg/Doxorubicin HCl 15 mg/ Sodium Chloride 1,000 mls @ 41.667 mls/hr IVPB Q24H [facility] Stop: 10/17/17 15:59 Last Admin: 10/14/17 15:01 Dose: 41.667 mls/hr Dexamethasone Sodium Phosphate (40 mg/ Sodium Chloride) 60 mls @ 120 mls/hr IVPB DAILY [facility] Stop: 10/18/17 08:59 Last Admin: 10/14/17 09:36 Dose: 120 mls/hr Loperamide HCl (Imodium Cap*) 2 mg PO .SEE DIRECTIONS PRN PRN Reason: DIARRHEA Last Admin: 10/11/17 17:24 Dose: 2 mg Ondansetron HCl (Zofran Inj*) 8 mg IV BID [facility] Stop: 10/17/17 20:59 Last Admin: 10/14/17 21:20 Dose: 8 mg Pantoprazole Sodium (Protonix Tab (Nf)) 40 mg PO DAILY [facility] Last Admin: 10/14/17 09:32 Dose: 40 mg Pharmacy Profile Note (Fentanyl Patch Check Q Shift) 1 note N/A 0700,1900 [facility] Last Admin: 10/14/17 19:20 Dose: 1 note Potassium Chloride (Klor Con Er Tab*) 20 meq PO BID [facility] Stop: 10/15/17 20:59 Last Admin: 10/14/17 20:59 Dose: 20 meq Prochlorperazine (Compazine Tab*) 10 mg PO Q6HR PRN PRN Reason: NAUSEA Senna (Senokot Tab*) 1 tab PO DAILY [facility] Last Admin: 10/14/17 09:30 Dose: 1 tab Zolpidem Tartrate (Ambien Tab*) 5 mg PO BEDTIME [facility] Last Admin: 10/14/17 21:40 Dose: Not Given Assessment: 72 yo M w refractory MM admitted with uncontrolled pain, currently much better, getting inpatient VAD chemotherapy as a last attempt to control disease. Plan: MM: cont VAD, dy 3 today, with plan to run through Friday and then likely discharge hypokalemia/hypomagnesemia: recheck today, replete as needed diarrhea: much better controlled (radiation enteritis) thrush: better on fluconazole DNR plan for hospice IF this regimen fails
[2017-10-15 08:32] LABS: Hematocrit 24 % (42-52); Hemoglobin 8.2 g/dl (14.0-18.0); Mean Corpuscular HGB Conc 34 g/dl (31-36); Mean Corpuscular Hemoglobin 31 pg (27-31); Mean Corpuscular Volume 91 fL (80-94); Mean Platelet Volume 8 um3 (7.4-10.4); Platelet Count 223 10^3/ul (150-450); Red Blood Count 2.63 10^6/ul (4.0-5.4); Red Cell Distribution Width 19 % (10.5-15)
[2017-10-15 08:46] LABS: EGFR Non-African American 102.7 (>60)
[2017-10-15 08:59] LABS: ABS Basophils 0 10^3/ul (0-0.2); ABS Eosinophils 0 10^3/ul (0-0.6); ABS Lymphocytes 1.1 10^3/ul (1.0-4.8); ABS Monocytes 0.9 10^3/ul (0-0.8); ABS Nucleated RBC 0 10^3/ul; Eosinophil % 0 % (0-6); Lymphocyte % 11.8 % (25-47); Nucleated Red Blood Cells % 0.1
[2017-10-15] MEDS ORDERED: Dexamethasone IV* 4 MG/ML 1 ML (4 MG) ONE (09:23)
[2017-10-15] MEDS: Acyclovir* 400 MG TAB PO SCH ×2 (09:50→20:36)
[2017-10-15] MEDS: Bisoprolol TAB* 5 MG PO SCH (09:50)
[2017-10-15] MEDS: Fluconazole 100 MG TAB* TAB PO SCH (09:50)
[2017-10-15] MEDS: Potassium Chlor TAB* 20 MEQ TAB.ER PO SCH ×2 (09:51→20:36)
[2017-10-15] MEDS: Senna TAB PO SCH (09:51)
[2017-10-15] MEDS: Ondansetron INJ* 2 MG/ML VIAL IV SCH ×2 (09:51→20:35)
[2017-10-15] MEDS: DEXAMETHASONE IVPB SCH (09:51)
[2017-10-15] MEDS: NS 0.9% IVPB SCH ×2 (09:51→14:50)
[2017-10-15] MEDS: CMCS: Pantoprazole TAB (NF) 40 MG TAB PO SCH (09:51)
[2017-10-15] MEDS: fentaNYL Patch Check Q Shift 1 NOTE SCH ×2 (10:08→19:27)
[2017-10-15] MEDS: VINCRISTINE IVPB SCH (14:50)
[2017-10-15] MEDS: DOXORUBICIN IVPB SCH (14:50)
[2017-10-15] MEDS: Zolpidem TAB* 5 MG PO SCH (20:36)
[2017-10-15] MEDS: HYDROmorphone TAB* 4 MG PO PRN (20:36)
[2017-10-16] MEDS: Enoxaparin(*) 60 MG/0.6 ML SYR SUBCUT SCH ×2 (05:18→17:55)
[2017-10-16 06:28] LABS: Hematocrit 26 % (42-52); Hemoglobin 8.8 g/dl (14.0-18.0); Mean Corpuscular HGB Conc 34 g/dl (31-36); Mean Corpuscular Hemoglobin 31 pg (27-31); Mean Corpuscular Volume 91 fL (80-94); Mean Platelet Volume 9 um3 (7.4-10.4); Platelet Count 222 10^3/ul (150-450); Red Blood Count 2.85 10^6/ul (4.0-5.4); Red Cell Distribution Width 19 % (10.5-15); White Blood Count 6.8 10^3/ul (3.5-10.8)
[2017-10-16 06:43] LABS: EGFR Non-African American 105.9 (>60)
[2017-10-16] MEDS: fentaNYL Patch Check Q Shift 1 NOTE SCH ×2 (07:20→19:45)
[2017-10-16 08:34] LABS: ABS Basophils 0 10^3/ul (0-0.2); ABS Eosinophils 0 10^3/ul (0-0.6); ABS Lymphocytes 0.9 10^3/ul (1.0-4.8); ABS Monocytes 0.7 10^3/ul (0-0.8); ABS Neutrophils 5.1 10^3/ul (1.5-7.7); ABS Nucleated RBC 0 10^3/ul; Eosinophil % 0 % (0-6); Lymphocyte % 13.9 % (25-47); Nucleated Red Blood Cells % 0.1
--- NOTE | 2017-10-16 09:58 | PN ---
Progress Note - Progress Note Date of Service: 10/16/17 SOAP: Subjective: [This is a 72 yo male with refractory MM admitted for pain and nausea management. Patient reports that nausea has improved, oral intake improving. Pain control is adequate with oral dilaudid.] Objective: Active Medications Generic Name Dose Route Start Last Admin Trade Name Freq PRN Reason Stop Dose Admin Acetaminophen 650 mg 10/10/17 15:01 10/11/17 05:56 Tylenol Tab* PO 650 mg Q4H PRN Administration FEVER/PAIN Acyclovir 400 mg 10/10/17 21:00 10/15/17 20:36 Zovirax Tab* PO 400 mg BID DANELLE Administration Al Hydrox/Mg Hydrox/Simethicone 30 ml 10/10/17 15:01 Maalox Plus* PO Q6H PRN INDIGESTION Bisoprolol Fumarate 5 mg 10/14/17 09:00 10/15/17 09:50 Zebeta Tab* PO 5 mg DAILY DANELLE Administration Docusate Sodium 100 mg 10/12/17 09:20 Colace Cap* PO BID PRN CONSTIPATION Enoxaparin Sodium 60 mg 10/10/17 16:00 10/16/17 05:18 Lovenox(*) SUBCUT 60 mg Q12H DANELLE Administration Fentanyl 75 mcg 10/10/17 16:00 10/13/17 17:42 Duragesic Patch 75 Mcg/Hr* TRANSDERM 75 mcg Q72H DANELLE Administration Fluconazole 200 mg 10/13/17 09:00 10/15/17 09:50 Diflucan 100 Mg Tab* PO 10/18/17 08:59 200 mg DAILY DANELLE Administration Heparin Sodium (Porcine) 0 ml 10/13/17 18:00 10/16/17 05:18 Heparin Flush Picc/Ml/Cvc(*) FLUSH 1 ml 0600,1800 DANELLE Administration Protocol Hydromorphone HCl 4 mg 10/12/17 09:17 10/15/17 20:36 Dilaudid Tab* PO 4 mg Q4H PRN Administration PAIN Vincristine Sulfate 0.4 mg/ 1,000 mls @ 41.667 mls/hr 10/13/17 16:00 14:50 Doxorubicin HCl 15 mg/ Sodium IVPB 10/17/17 15:59 41.667 mls/hr Chloride Q24H DANELLE Administration Dexamethasone Sodium Phosphate 60 mls @ 120 mls/hr 10/14/17 09:00 10/15/17 09 :51 40 mg/ Sodium Chloride IVPB 10/18/17 08:59 120 mls/hr DAILY DANELLE Administration Loperamide HCl 2 mg 10/11/17 09:48 10/11/17 17:24 Imodium Cap* PO 2 mg .SEE DIRECTIONS PRN Administration DIARRHEA Ondansetron HCl 8 mg 10/13/17 21:00 10/15/17 20:35 Zofran Inj* IV 10/17/17 20:59 8 mg BID DANELLE Administration Pantoprazole Sodium 40 mg 10/13/17 12:00 10/15/17 09:51 Protonix Tab (Nf) PO 40 mg DAILY DANELLE Administration Pharmacy Profile Note 1 note 10/10/17 19:00 10/16/17 07:20 Fentanyl Patch Check Q Shift N/A 1 note 0700,1900 DANELLE Administration Potassium Chloride 20 meq 10/13/17 21:00 10/15/17 20:36 Klor Con Er Tab* PO 10/18/17 20:59 20 meq BID DANELLE Administration Prochlorperazine 10 mg 10/13/17 11:20 Compazine Tab* PO Q6HR PRN NAUSEA Senna 1 tab 10/12/17 21:00 10/15/17 09:51 Senokot Tab* PO Not Given DAILY DANELLE Zolpidem Tartrate 5 mg 10/10/17 21:00 10/15/17 20:36 Ambien Tab* PO Not Given BEDTIME DANELLE Laboratory Results - last 24 hr 10/11/17 10/16/17 10/16/17 01:00 05:43 05:43 WBC 6.8 RBC 2.85 L Hgb 8.8 L Hct 26 L MCV 91 MCH 31 MCHC 34 RDW 19 H Plt Count 222 MPV 9 Neut % (Auto) 75.4 Lymph % (Auto) 13.9 L [place] % (Auto) 10.6 H Eos % (Auto) 0 Baso % (Auto) 0.1 Absolute Neuts (auto) 5.1 Absolute Lymphs (auto) 0.9 L Absolute Monos (auto) 0.7 Absolute Eos (auto) 0 Absolute Basos (auto) 0 Absolute Nucleated RBC 0 Nucleated RBC % 0.1 Sodium 138 Potassium 3.9 Chloride 104 Carbon Dioxide 23 Anion Gap 11 BUN 21 Creatinine 0.73 Est GFR ( Amer) 136.2 Est GFR (Non-Af Amer) 105.9 BUN/Creatinine Ratio 28.8 H Glucose 113 H Calcium 8.6 Magnesium 2.0 Norovirus Antigen Not detected Vital Signs Temp Pulse Resp BP Pulse Ox 98.2 F 70 16 143/77 100 10/16/17 07:46 10/16/17 07:46 10/16/17 08:00 10/16/17 07:46 10/16/17 07:46 [Gen: Chronically ill appearing 72 yo gentleman sitting up at bedside in NAD. He is accompanied by family. Resp: Lungs clear, no w/c/r CV: RRR, no m/r/g GI: Abd soft, non-tender Ext: trace LE edema Skin: No rashes noted] Assessment: [This is a 72 yo male with refractory MM admitted for pain and nausea control, now receiving inpatient VAD therapy. Plan: [1. Refractory pain and nausea related to chemotherapy - Improved. Pain controlled with oral dilaudid. Nausea controlled 2. Refractory MM - Inpatient VAD, day 4/5. Anticipate dc tomorrow 3. Hypokalemia/hypomagnesemia - resolved, cont to monitor and replete as needed 4. Thrush - oral nystatin 5. Hx PE - Anticoagulated with FD Lovenox, Xarelto held Dispo: Likely dc home tomorrow or Sat]
[2017-10-16] MEDS: Potassium Chlor TAB* 20 MEQ TAB.ER PO SCH ×2 (11:09→20:48)
[2017-10-16] MEDS: Fluconazole 100 MG TAB* TAB PO SCH (11:10)
[2017-10-16] MEDS: Ondansetron INJ* 2 MG/ML VIAL IV SCH ×2 (11:10→20:52)
[2017-10-16] MEDS: CMCS: Pantoprazole TAB (NF) 40 MG TAB PO SCH (11:10)
[2017-10-16] MEDS: Bisoprolol TAB* 5 MG PO SCH (11:10)
[2017-10-16] MEDS: Senna TAB PO SCH (11:10)
[2017-10-16] MEDS: Acyclovir* 400 MG TAB PO SCH ×2 (11:10→20:48)
[2017-10-16] MEDS: DEXAMETHASONE IVPB SCH (11:58)
[2017-10-16] MEDS: NS 0.9% IVPB SCH ×2 (11:58→15:31)
[2017-10-16] MEDS: DOXORUBICIN IVPB SCH (15:31)
[2017-10-16] MEDS: VINCRISTINE IVPB SCH (15:31)
[2017-10-16] MEDS: fentaNYL PATCH 75 MCG/HR* 75 MCG TRANSDERM SCH (17:53)
[2017-10-16] MEDS: Zolpidem TAB* 5 MG PO SCH (20:40)
[2017-10-17] MEDS: Enoxaparin(*) 60 MG/0.6 ML SYR SUBCUT SCH (05:59)
[2017-10-17] MEDS: fentaNYL Patch Check Q Shift 1 NOTE SCH (07:33)
[2017-10-17] MEDS ORDERED: DEXAMETHASONE IVPB SCH (09:00)
[2017-10-17] MEDS ORDERED: NS 0.9% IVPB SCH (09:00)
[2017-10-17 09:44] LABS: ABS Basophils 0 10^3/ul (0-0.2); ABS Eosinophils 0 10^3/ul (0-0.6); ABS Lymphocytes 0.4 10^3/ul (1.0-4.8); ABS Monocytes 0.8 10^3/ul (0-0.8); ABS Neutrophils 4.7 10^3/ul (1.5-7.7); ABS Nucleated RBC 0 10^3/ul; Eosinophil % 0 % (0-6); Hematocrit 24 % (42-52); Hemoglobin 8.2 g/dl (14.0-18.0); Lymphocyte % 7.1 % (25-47); Mean Corpuscular HGB Conc 34 g/dl (31-36); Mean Corpuscular Hemoglobin 31 pg (27-31); Mean Corpuscular Volume 91 fL (80-94); Mean Platelet Volume 8 um3 (7.4-10.4); Nucleated Red Blood Cells % 0; Platelet Count 183 10^3/ul (150-450); Red Blood Count 2.66 10^6/ul (4.0-5.4); Red Cell Distribution Width 19 % (10.5-15); White Blood Count 5.9 10^3/ul (3.5-10.8)
[2017-10-17 10:00] LABS: EGFR Non-African American 104.3 (>60)
[2017-10-17] MEDS: Ondansetron INJ* 2 MG/ML VIAL IV SCH (10:01)
[2017-10-17] MEDS: Bisoprolol TAB* 5 MG PO SCH (10:03)
[2017-10-17] MEDS: CMCS: Pantoprazole TAB (NF) 40 MG TAB PO SCH (10:03)
[2017-10-17] MEDS: Acyclovir* 400 MG TAB PO SCH (10:03)
[2017-10-17] MEDS: Fluconazole 100 MG TAB* TAB PO SCH (10:04)
[2017-10-17] MEDS: Potassium Chlor TAB* 20 MEQ TAB.ER PO SCH (10:04)
[2017-10-17] MEDS: Senna TAB PO SCH (10:04)
[2017-10-17] MEDS: DEXAMETHASONE IVPB SCH (10:17)
[2017-10-17] MEDS: NS 0.9% IVPB SCH (10:17)
[2017-10-17 12:57] VITALS: BP 155/82
--- NOTE | 2017-10-18 13:42 | DS ---
CC: Dr. Manley DISCHARGE SUMMARY: DATE OF ADMISSION: 10/10/17 DATE OF DISCHARGE: 10/17/17 PRIMARY DISCHARGE DIAGNOSES: 1. Intractable pain and nausea, secondary to chemotherapy. 2. Refractory multiple myeloma, requiring inpatient chemotherapy regimen with vincristine, Adriamyci n and dexamethasone; now status post 5-day infusion. 3. Hypokalemia and hypomagnesemia - resolved. 4. Thrush - continue fluconazole. 5. History of pulmonary embolism - anticoagulated with full dose Lovenox during hospitalization, tra nsitioned back to oral Xarelto at the time of discharge. DISCHARGE MEDICATIONS: 1. Acyclovir 400 mg p.o. twice daily. 2. Bisoprolol 5 mg p.o. daily. 3. Docusate 100 mg p.o. twice daily. 4. Fentanyl total dose of 75 mcg transdermal changed every 3 days. 5. Fluconazole 200 mg p.o. daily x5 days. 6. Dilaudid 4 mg p.o. q.4 hours as needed for pain. 7. Meclizine 25 mg p.o. q.8 hours as needed for dizziness. 8. Zofran 4 mg p.o. q.6 hours as needed for nausea. 9. Xarelto 20 mg p.o. daily. 10. Senna 1 tablet p.o. at bedtime. Medications changes: 1. Stop amlodipine. 2. Start bisoprolol. 3. Increase fentanyl from 50 mcg to 75 mcg. 4. Diflucan x5 days. 5. Increase Dilaudid from 2 to 4 mg every 4 hours as needed. HOSPITAL IMAGIN. CT of the chest, abdomen and pelvis demonstrates extensive myelomatous involvement of the spine, ribs and bony pelvis with a probable small hepatic cyst and multiple bilateral renal cysts. There is a new 1.7 cm left adrenal mass and a 2.8 cm mass in the splenic hilar region. Diverticula of the si gmoid and descending colon without diverticulitis. 2. Transthoracic echocardiogram demonstrates mild LVH with an estimated EF of 60% to 65%. Left vent ricular wall motion is within normal limits. No significant valvular abnormalities. HOSPITAL COURSE: This is a pleasant 72-year-old gentleman with multiple myeloma, which has been refr actory to therapy, who presented with complaints of uncontrolled pain and inability to tolerate oral intake. The patient was being treated with daratumumab and bortezomib and dexamethasone and had comp leted 3 of the 5 planned radiation doses to his pelvis prior to admission. The patient reported ely ed nausea and some diarrhea associated with initiation of radiation therapy. He had significant pain in his chest, arms, hips, although he did notice some improvement in the hip and pelvic pain with ra diation therapy. His pain progressed to the point that he reported to the emergency department and kerry barrera was unable to take any of his oral pain medications due to severity of his nausea. Labs at the time of admission demonstrated a normal white blood cell count, normocytic anemia with he moglobin of 7.9 g/dL. Chemistry panel was largely insignificant. Lactic acid was elevated to 4.6. Norovirus antigen testing was completed which was negative. Urinalysis was not suggestive of acute i nfection. The patient was started on Megace to improve appetite and started on oral fluconazole as he was complaining of some dysphagia with concern for possible esophageal candidiasis. The patient dis cussed treatment planning with Dr. Manley in detail who has offered comfort care measures versus initia ting VAD therapy. The patient elected to initiate VAD therapy and underwent a 5-day infusion. The p atient's fentanyl was increased as was his oral dosing of the Dilaudid after he was able to tolerate such. Pre-treatment echocardiogram was completed, which was within normal limits. The patient's pain and nausea were well controlled during his hospital stay and he successfully compl eted his planned therapy. DISPOSITION AND FOLLOWUP PLAN: The patient is being discharged from the hospital to stay with antony d followup in the oncology office in 1 week. He will repeat labs prior to that. Please see medicati on changes as outlined above. PAULINE WANG [id number]/[facility] #: [id number]
== END 2017-10-17 16:00 | disposition hospice, home (50) | DRG 841 ==
LOC: ED 11:34 → MED 15:01
PROVIDERS: ADMIT Internal Medicine Hematology & Oncology; ATTEND Internal Medicine Hematology & Oncology
PROC: 02HV33Z Insertion of Infusion Device into Superior Vena Cava, Percutaneous Approach (ICD-10-PCS; principal; 2017-10-13)
PROC: 3E04305 Introduction of Other Antineoplastic into Central Vein, Percutaneous Approach (ICD-10-PCS; 2017-10-13)
DX: C90.00 Multiple myeloma not having achieved remission (principal); R64 Cachexia; C79.51 Secondary malignant neoplasm of bone; E44.0 Moderate protein-calorie malnutrition; K52.0 Gastroenteritis and colitis due to radiation; Z94.84 Stem cells transplant status; E86.0 Dehydration; E83.42 Hypomagnesemia; D63.0 Anemia in neoplastic disease; Z68.1 Body mass index [BMI] 19.9 or less, adult; E78.5 Hyperlipidemia, unspecified; I10 Essential (primary) hypertension; G89.29 Other chronic pain; Z66 Do not resuscitate; K59.00 Constipation, unspecified; E87.6 Hypokalemia; Y84.2 Radiological procedure and radiotherapy as the cause of abnormal reaction of the patient, or of later complication, without mention of misadventure at the time of the procedure; Y92.239 Unspecified place in hospital as the place of occurrence of the external cause; B37.9 Candidiasis, unspecified; R11.0 Nausea; T45.1X5A Adverse effect of antineoplastic and immunosuppressive drugs, initial encounter; Z86.711 Personal history of pulmonary embolism; Z88.8 Allergy status to other drugs, medicaments and biological substances; Z82.5 Family history of asthma and other chronic lower respiratory diseases; Z80.1 Family history of malignant neoplasm of trachea, bronchus and lung; Z87.891 Personal history of nicotine dependence; Z83.3 Family history of diabetes mellitus
CPT/HCPCS: 36415; 36569; 71260; 74177; 76937; 77001; 80048; 80053; 81003; 81015; 82150; 82550; 82607; 82728; 83540; 83550; 83605; 83690; 83735; 83880; 84484; 85025; 85045; 85610; 85730; 86140; 87045; 87046; 87328; 87329; 87425; 87449; 87493; 87899; 93306; 96374; 96375; 96376; 99223; 99232; 99233; 99282; 99283; A9270-GY; J1100; J1170; J1642; J1650; J2270; J2405; J3480; J9000; J9370; Q9967

== ENCOUNTER 2017-10-24 14:45 | Observation (INO) | payer MEDICARE, BC ==
[2017-10-24] MEDS ORDERED: Ondansetron INJ* 2 MG/ML VIAL IV PRN (15:30)
[2017-10-24] MEDS ORDERED: Acetaminophen TAB* 325 MG PO PRN (15:30)
[2017-10-24] MEDS ORDERED: Magnesium Sulfate 2 GM IV* 2 GM/50 ML BAG IVPB ONE (15:35)
[2017-10-24] MEDS ORDERED: Docusate CAP* 100 MG PO PRN (15:37)
[2017-10-24] MEDS ORDERED: HYDROmorphone TAB* 4 MG PO PRN (15:37)
[2017-10-24] MEDS ORDERED: fentaNYL PATCH 75 MCG/HR* 75 MCG TRANSDERM SCH (16:00)
[2017-10-24] MEDS: fentaNYL Patch Check Q Shift 1 NOTE SCH (19:00)
[2017-10-24] MEDS: NS 0.9% 1000 ML* 1,000 ML IV SCH (19:32)
[2017-10-24] MEDS: Potassium Chlor TAB* 20 MEQ TAB.ER PO SCH (20:34)
[2017-10-24] MEDS: Acyclovir* 400 MG TAB PO SCH (20:34)
[2017-10-24] MEDS ORDERED: Zolpidem TAB* 10 MG PO SCH (21:00)
[2017-10-25] MEDS: NS 0.9% 1000 ML* 1,000 ML IV SCH ×2 (02:18→09:13)
[2017-10-25] MEDS: fentaNYL Patch Check Q Shift 1 NOTE SCH (06:29)
[2017-10-25 06:35] LABS: EGFR Non-African American 143.8 (>60)
[2017-10-25 07:22] LABS: Hematocrit 26 % (42-52); Hemoglobin 8.9 g/dl (14.0-18.0); Mean Corpuscular HGB Conc 34 g/dl (31-36); Mean Corpuscular Hemoglobin 31 pg (27-31); Mean Corpuscular Volume 89 fL (80-94); Mean Platelet Volume 9 um3 (7.4-10.4); Platelet Count 72 10^3/ul (150-450); Red Blood Count 2.91 10^6/ul (4.0-5.4); Red Cell Distribution Width 18 % (10.5-15); White Blood Count 4.3 10^3/ul (3.5-10.8)
[2017-10-25 07:58] VITALS: BP 122/69
[2017-10-25 08:32] LABS: Monocytes % 5 % (0-7)
[2017-10-25] MEDS ORDERED: Rivaroxaban TAB(*) 20 MG TAB PO SCH (09:00)
[2017-10-25] MEDS ORDERED: Bisoprolol TAB* 5 MG PO SCH (09:00)
[2017-10-25] MEDS: Potassium Chlor TAB* 20 MEQ TAB.ER PO SCH (09:13)
[2017-10-25] MEDS: Acyclovir* 400 MG TAB PO SCH (09:13)
== END 2017-10-25 12:05 | disposition home or self-care (01) ==
LOC: MED 14:45
PROVIDERS: ADMIT Internal Medicine Hematology & Oncology; ATTEND Internal Medicine Hematology & Oncology
DX: E86.0 Dehydration (principal); R62.7 Adult failure to thrive; C90.00 Multiple myeloma not having achieved remission; M54.9 Dorsalgia, unspecified; Z79.899 Other long term (current) drug therapy; I10 Essential (primary) hypertension; E78.5 Hyperlipidemia, unspecified; Z86.711 Personal history of pulmonary embolism; Z79.01 Long term (current) use of anticoagulants; Z87.891 Personal history of nicotine dependence
CPT/HCPCS: 36415; 36430; 80053; 82533; 82784; 83735; 83883; 84155; 84165; 85025; 86850; 86900; 86901; 86922; 96361; 96365; 99217; 99219; 99238; A9270-GY; G0378; J3475; P9040

== ENCOUNTER 2017-12-12 05:37 | Emergency (ER) | payer MEDICARE, BC ==
[2017-12-12] MEDS ORDERED: Ketorolac INJ* 30 MG/ML 1 ML VIAL IV PUSH ONE (06:10)
--- NOTE | 2017-12-12 06:26 | ED ---
Back Pain - HPI Summary HPI Summary: Multiple myeloma patient here with intractable pain this morning. Reports he feels this in his bones. He had a 75 g fentanyl patch applied yesterday for the first time. He also has access to dilaudid at home however he reports Advil seems to help better so he took 2 of those this morning. Still unable to get his pain under control, he was brought in by ambulance to emergency department. He received 50 g of IV fentanyl on the way in and reports his pain is improved. He's had multiple myeloma over the past few years and received various treatments been such as chemotherapy, radiation and stem cell transplant. He is currently taking 2 oral chemotherapy meds and is followed by Dr. Manley. They recently discussed increasing his fentanyl patch dose but this has not been done yet. He denies chest pain, shortness of breath, belly pain, nausea, vomiting, diarrhea. In fact he takes a stool softener to manage his constipation. He denies any other infectious symptoms such as fever, chills, URI symptoms, skin changes. He is still urinating well. He is due for hydration appointment at 8 AM this morning at [facility]. - History of Current Complaint Chief Complaint: EDGeneral Stated Complaint: GENERAL ILLNESS Time Seen by Provider: 12/12/17 05:47 Hx Obtained From: Patient, Family/Penciller - Pain Intensity: 2 - Allergies/Home Medications Allergies/Adverse Reactions: Allergies Allergy/AdvReac Type Severity Reaction Status Date / Time simvastatin Allergy Hives Verified 12/12/17 05:42 PMH/Surg Hx/FS Hx/Imm Hx Previously Healthy: Yes Endocrine/Hematology History: Reports: Hx Anticoagulant Therapy - xarelto, Hx Anemia, Other Endocrine/Hematological Disorders - MM Denies: Hx Diabetes Cardiovascular History: Reports: Hx Hypercholesterolemia, Hx Hypertension Denies: Hx Pacemaker/ICD Respiratory History: Reports: Hx Pulmonary Embolism Denies: Hx Asthma, Hx Chronic Bronchitis - "once" History: Denies: Hx Renal Disease Musculoskeletal History: Denies: Hx Osteoporosis Sensory History: Reports: Hx Contacts or Glasses Denies: Hx Hearing Aid Opthamlomology History: Reports: Hx Contacts or Glasses Psychiatric History: Denies: Hx Panic Disorder - Cancer History Cancer Type, Location and Year: multiple myeloma Hx Chemotherapy: Yes - Surgical History Surgery Procedure, Year, and Place: 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, right ankle AGE 22 - Immunization History Date of Tetanus Vaccine: utd Date of Influenza Vaccine: fall 2016 Infectious Disease History: No Infectious Disease History: Denies: Traveled Outside the [place] in Last 30 Days - Family History Known Family History: Positive: Diabetes Family History: Mother and sister: stomach CA - Social History Occupation: Retired Lives: With Family Alcohol Use: None Hx Substance Use: No Substance Use Type: Reports: None Hx Tobacco Use: Yes Smoking Status (MU): Former Smoker Review of Systems Constitutional: Negative Eyes: Negative ENT: Negative Cardiovascular: Negative Respiratory: Negative Gastrointestinal: Negative Genitourinary: Negative Musculoskeletal: Other - diffuse bone pain Skin: Negative Neurological: Negative Psychological: Normal All Other Systems Reviewed And Are Negative: Yes Physical Exam Triage Information Reviewed: Yes Vital Signs On Initial Exam: Initial Vitals Temp Pulse Resp BP Pulse Ox 98.4 F 79 16 146/91 95 12/12/17 05:40 12/12/17 05:40 12/12/17 05:40 12/12/17 05:40 12/12/17 05:40 Vital Signs Reviewed: Yes Appearance: Positive: Pain Distress, Thin Skin: Positive: Warm - generalized pallor, Dry Head/Face: Positive: Normal Head/Face Inspection Eyes: Positive: Normal, EOMI, CHRISTIANE, Conjunctiva Clear - anicteric sclera ENT: Positive: Normal ENT inspection, Hearing grossly normal Respiratory/Lung Sounds: Positive: Clear to Auscultation, Breath Sounds Present Cardiovascular: Positive: Normal Abdomen Description: Positive: Soft Bowel Sounds: Positive: Present Musculoskeletal: Positive: Strength/ROM Intact Neurological: Positive: Normal, Sensory/Motor Intact, Alert, Oriented to Person Place, Time, CN Intact II-III Psychiatric: Positive: Normal Diagnostics - Vital Signs Vital Signs Temp Pulse Resp BP Pulse Ox 12/12/17 06:00 77 18 96 12/12/17 05:45 78 146/91 95 12/12/17 05:40 98.4 F 79 16 146/91 95 - Laboratory Lab Statement: Any lab studies that have been ordered have been reviewed, and results considered in the medical decision making process. Re-Evaluation - Re-Evaluation First Eval Change: Improved Back Pain Course/Dx - Course Course Of Treatment: Multiple myeloma patient presents to ED for pain control. He received 30 mg IV of Toradol which has improved his pain - he now just has a dull pain in his shoulders - declines further fentanyl prior to d/c to [facility] for hydration at 8:00am. He was also provided with his morning dose of Senokot. Discussed with Dr. Manley who will see pt after hydration. Note: Labs are reviewed here from yesterday and there is minimal change from baseline although he does appear to be having a slight reduction of H&H. Oncology notified. - Diagnoses Provider Diagnoses: Cancer related pain Discharge - Sign-Out/Discharge Documenting (check all that apply): Discharge/Admit/Transfer - Discharge Plan Condition: Stable Disposition: HOME Patient Education Materials: Pain Management (ED) Referrals: Jeffy Manley MD [Primary Care Provider] - Additional Instructions: Go to [facility] for hydration at 8:00am Follow-up with Dr. Manley following your treatment to discuss pain control - Billing Disposition and Condition Condition: STABLE Disposition: HOME
[2017-12-12] MEDS ORDERED: Senna TAB PO ONE (06:37)
[2017-12-12 07:28] VITALS: BP 134/83
== END 2017-12-12 08:02 | disposition home or self-care (01) ==
LOC: ED 05:37
DX: G89.3 Neoplasm related pain (acute) (chronic) (principal); C90.00 Multiple myeloma not having achieved remission; I10 Essential (primary) hypertension; E78.00 Pure hypercholesterolemia, unspecified; Z86.711 Personal history of pulmonary embolism; Z79.01 Long term (current) use of anticoagulants; Z87.891 Personal history of nicotine dependence
CPT/HCPCS: 96374; 99282; A9270-GY; J1885

== ENCOUNTER 2017-12-15 11:19 | Inpatient (IN) | payer MEDICARE, BC ==
[2017-12-15] MEDS ORDERED: HYDROmorphone INJ* 1 MG/ML CARPUJECT SYRINGE IV ONE (12:45)
[2017-12-15] MEDS ORDERED: NS 0.9% 1000 ML* 1,000 ML IV SCH (12:45)
[2017-12-15] MEDS ORDERED: Ondansetron INJ* 2 MG/ML VIAL IV ONE (12:45)
[2017-12-15] MEDS ORDERED: HYDROmorphone INJ* 2 MG/ML CARPUJECT SYRINGE ONE (12:55)
[2017-12-15 13:26] LABS: ABS Basophils 0 10^3/ul (0-0.2); ABS Eosinophils 0 10^3/ul (0-0.6); ABS Lymphocytes 1.2 10^3/ul (1.0-4.8); ABS Monocytes 0.5 10^3/ul (0-0.8); ABS Neutrophils 3.1 10^3/ul (1.5-7.7); ABS Nucleated RBC 0 10^3/ul; Eosinophil % 0.8 % (0-6); Hematocrit 33 % (42-52); Lymphocyte % 24.4 % (25-47); Mean Corpuscular HGB Conc 34 g/dl (31-36); Mean Corpuscular Hemoglobin 30 pg (27-31); Mean Corpuscular Volume 90 fL (80-94); Mean Platelet Volume 7.4 um3 (7.4-10.4); Nucleated Red Blood Cells % 0.1; Platelet Count 269 10^3/ul (150-450); Red Blood Count 3.62 10^6/ul (4.0-5.4); Red Cell Distribution Width 17 % (10.5-15); White Blood Count 4.9 10^3/ul (3.5-10.8)
[2017-12-15 13:31] LABS: INR 0.99 (0.77-1.02)
[2017-12-15 14:03] LABS: EGFR Non-African American 171.8 (>60)
[2017-12-15] MEDS ORDERED: NS 0.9% 1000 ML* 1,000 ML IV ONE (14:04)
[2017-12-15] MEDS ORDERED: NS 0.9% w/ 20 Meq KCL 1000 ML* 1,000 ML IV SCH (15:00)
--- NOTE | 2017-12-15 15:02 | ED ---
Jamel Kapoor Jennifer, scribed for Sonny Cristina MD on 12/15/17 at 1241 . Complex/Multi-Sys Presentation - HPI Summary HPI Summary: The patient is a 72 year old male who presents with worsening pain from multiple myeloma for the past three days. The patient reports he called Dr. Degroot , his PCP, who recommended he come to the ED for pain management. The patient complains of difficulty breathing due to the pain, abdominal pain, generalized weakness for a week, constipation, dry mouth, dehydration, and decreased appetite. He denies fever and shortness of breath. The patient was brought in by EMS three days ago for electrolyte replacement and transfusion. He last had chemotherapy six days ago. - History Of Current Complaint Chief Complaint: EDGeneral Time Seen by Provider: 12/15/17 12:30 Hx Obtained From: Patient, Family/Director [employer] Onset/Duration: Gradual Onset, Still Present, Worse Since - three days Timing: Constant Severity Currently: Severe Severity Initially: Severe Associated Signs And Symptoms: Positive: Other - joint pain, difficulty breathing due to pain, abdominal pain, generalized weakness, constipation, dry mouth, dehydration, decreased appetite. NEGATIVE: fever, shortness of breath - Allergies/Home Medications Allergies/Adverse Reactions: Allergies Allergy/AdvReac Type Severity Reaction Status Date / Time simvastatin Allergy Hives Verified 12/15/17 11:31 Home Medications: Home Medications ALPRAZolam TAB* [Xanax TAB*] 0.25 mg PO Q6H PRN 12/15/17 [History Confirmed ] Zoledronic Acid* [Zometa] 4 mg IV .EVERY SIX WEEKS 12/15/17 [History Confirmed 12/15/17] fentaNYL PATCH 25 MCG/HR* [Duragesic PATCH 25 Mcg/Hr*] 2 patch TRANSDERM Q72H [History Confirmed 12/15/17] fentaNYL PATCH 75 MCG/HR* [Duragesic PATCH 75 Mcg/Hr*] 1 patch TRANSDERM Q72H 12/15/17 [History Confirmed 12/15/17] PMH/Surg Hx/FS Hx/Imm Hx Endocrine/Hematology History: Reports: Hx Anticoagulant Therapy - xarelto, Hx Anemia, Other Endocrine/Hematological Disorders - MM Denies: Hx Diabetes Cardiovascular History: Reports: Hx Hypercholesterolemia, Hx Hypertension Denies: Hx Pacemaker/ICD Respiratory History: Reports: Hx Pulmonary Embolism Denies: Hx Asthma, Hx Chronic Bronchitis - "once" History: Denies: Hx Renal Disease Musculoskeletal History: Denies: Hx Osteoporosis Sensory History: Reports: Hx Contacts or Glasses Denies: Hx Hearing Aid Opthamlomology History: Reports: Hx Contacts or Glasses Psychiatric History: Denies: Hx Panic Disorder - Cancer History Cancer Type, Location and Year: multiple myeloma Hx Chemotherapy: Yes - Surgical History Surgery Procedure, Year, and Place: 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, right ankle AGE 22 - Immunization History Date of Tetanus Vaccine: utd Date of Influenza Vaccine: fall 2016 Infectious Disease History: No Infectious Disease History: Denies: Traveled Outside the [place] in Last 30 Days - Family History Known Family History: Positive: Diabetes Family History: Mother and sister: stomach CA - Social History Alcohol Use: None Hx Substance Use: No Substance Use Type: Reports: None Hx Tobacco Use: Yes Smoking Status (MU): Former Smoker Review of Systems Negative: Fever ENT: Other - Dry mouth Negative: Shortness Of Breath Gastrointestinal: Other - Constipation, dehydration, decreased appetite Positive: Abdominal Pain Positive: Myalgia Positive: Weakness All Other Systems Reviewed And Are Negative: Yes Physical Exam - Summary Physical Exam Summary: General: mild pain distress Skin: warm, color reflects adequate perfusion, dry Head: normal Eyes: EOMI, CHRISTIANE ENT: dry oral mucosa Neck: supple, nontender Respiratory: CTA, breath sounds present Cardiovascular: RRR Abdomen: soft, nontender Bowel: present Musculoskeletal: unable to raise left arm at the shoulder, normal hands parter strength , good pulses, able to raise both legs, normal, strength/ROM intact Neurological: normal, sensory/motor intact, A&O x3 Psychological: affect/mood appropriate Triage Information Reviewed: Yes Vital Signs On Initial Exam: Initial Vitals Temp Pulse Resp BP Pulse Ox 97.9 F 100 15 142/96 97 12/15/17 11:28 12/15/17 11:28 12/15/17 11:28 12/15/17 11:28 12/15/17 11:28 Vital Signs Reviewed: Yes Diagnostics - Vital Signs Vital Signs Temp Pulse Resp BP Pulse Ox 12/15/17 12:26 86 16 155/102 95 12/15/17 12:24 17 12/15/17 11:28 97.9 F 100 15 142/96 97 - Laboratory Lab Results: Lab Results 12/15/17 12/15/17 12/15/17 Range/Units 13:08 13:08 13:08 WBC (3.5-10.8) 10^3/ul RBC (4.0-5.4) 10^6/ul Hgb (14.0-18.0) g/dl Hct (42-52) % MCV (80-94) fL MCH (27-31) pg MCHC (31-36) g/dl RDW (10.5-15) % Plt Count (150-450) 10^3/ul MPV (7.4-10.4) um3 Neut % (Auto) (38-83) % Lymph % (Auto) (25-47) % [place] % (Auto) (0-7) % Eos % (Auto) (0-6) % Baso % (Auto) (0-2) % Absolute Neuts (auto) (1.5-7.7) 10^3/ul Absolute Lymphs (auto) (1.0-4.8) 10^3/ul Absolute Monos (auto) (0-0.8) 10^3/ul Absolute Eos (auto) (0-0.6) 10^3/ul Absolute Basos (auto) (0-0.2) 10^3/ul Absolute Nucleated RBC 10^3/ul Nucleated RBC % INR (Anticoag Therapy) 0.99 (0.77-1.02) APTT 29.6 (26.0-36.3) seconds Sodium 141 (139-145) mmol/L Potassium 2.6 L* (3.5-5.0) mmol/L Chloride 99 L (101-111) mmol/L Carbon Dioxide 27 (22-32) mmol/L Anion Gap 15 H (2-11) mmol/L BUN 11 (6-24) mg/dL Creatinine 0.48 L (0.67-1.17) mg/dL Est GFR ( Amer) 221.0 (>60) Est GFR (Non-Af Amer) 171.8 (>60) BUN/Creatinine Ratio 22.9 H (8-20) Glucose 103 H (70-100) mg/dL Lactic Acid (0.5-2.0) mmol/L Calcium 8.8 (8.6-10.3) mg/dL Magnesium 2.0 (1.9-2.7) mg/dL Total Bilirubin 1.00 (0.2-1.0) mg/dL AST 13 (13-39) U/L ALT 4 L (7-52) U/L Alkaline Phosphatase 45 (34-104) U/L Total Creatine Kinase 25 (10-223) U/L CK-MB (CK-2) 0.9 (0.6-6.3) ng/mL C-Reactive Protein 310.79 H (< 5.00) mg/L B-Natriuretic Peptide 114 H ( - 100) pg/mL Total Protein 6.7 (6.4-8.9) g/dL Albumin 2.5 L (3.2-5.2) g/dL Globulin 4.2 H (2-4) g/dL Albumin/Globulin Ratio 0.6 L (1-3) Lipase < 10 L (11.0-82.0) U/L 12/15/17 12/15/17 Range/Units 13:08 13:08 WBC 4.9 (3.5-10.8) 10^3/ul RBC 3.62 L (4.0-5.4) 10^6/ul Hgb 11.0 L (14.0-18.0) g/dl Hct 33 L (42-52) % MCV 90 (80-94) fL MCH 30 (27-31) pg MCHC 34 (31-36) g/dl RDW 17 H (10.5-15) % Plt Count 269 (150-450) 10^3/ul MPV 7.4 (7.4-10.4) um3 Neut % (Auto) 64.1 (38-83) % Lymph % (Auto) 24.4 L (25-47) % [place] % (Auto) 9.9 H (0-7) % Eos % (Auto) 0.8 (0-6) % Baso % (Auto) 0.8 (0-2) % Absolute Neuts (auto) 3.1 (1.5-7.7) 10^3/ul Absolute Lymphs (auto) 1.2 (1.0-4.8) 10^3/ul Absolute Monos (auto) 0.5 (0-0.8) 10^3/ul Absolute Eos (auto) 0 (0-0.6) 10^3/ul Absolute Basos (auto) 0 (0-0.2) 10^3/ul Absolute Nucleated RBC 0 10^3/ul Nucleated RBC % 0.1 INR (Anticoag Therapy) (0.77-1.02) APTT (26.0-36.3) seconds Sodium (139-145) mmol/L Potassium (3.5-5.0) mmol/L Chloride (101-111) mmol/L Carbon Dioxide (22-32) mmol/L Anion Gap (2-11) mmol/L BUN (6-24) mg/dL Creatinine (0.67-1.17) mg/dL Est GFR ( Amer) (>60) Est GFR (Non-Af Amer) (>60) BUN/Creatinine Ratio (8-20) Glucose (70-100) mg/dL Lactic Acid 4.8 H* (0.5-2.0) mmol/L Calcium (8.6-10.3) mg/dL Magnesium (1.9-2.7) mg/dL Total Bilirubin (0.2-1.0) mg/dL AST (13-39) U/L ALT (7-52) U/L Alkaline Phosphatase (34-104) U/L Total Creatine Kinase (10-223) U/L CK-MB (CK-2) (0.6-6.3) ng/mL C-Reactive Protein (< 5.00) mg/L B-Natriuretic Peptide ( - 100) pg/mL Total Protein (6.4-8.9) g/dL Albumin (3.2-5.2) g/dL Globulin (2-4) g/dL Albumin/Globulin Ratio (1-3) Lipase (11.0-82.0) U/L Result Diagrams: 12/15/17 13:08 12/15/17 13:08 Lab Statement: Any lab studies that have been ordered have been reviewed, and results considered in the medical decision making process. Complex Multi-Symp Course/Dx Course Of Treatment: Medications reviewed. Allergies noted. BP noted and advised to follow up with PCP. DISCUSSED WITH DR DEGROOT. ADMIT HEME/ONC. - Diagnoses Provider Diagnoses: HTN (hypertension), Weakness, Intractable pain, Multiple myeloma, Hypokalemia - Physician Notifications Discussed Care Of Patient With: Jeffy Degroot Time Discussed With Above Provider: 14:15 Instructed by Provider To: MD Will See In ED Discharge - Sign-Out/Discharge Documenting (check all that apply): Discharge/Admit/Transfer - Discharge Plan Condition: Stable Disposition: ADMITTED TO [facility] Referrals: Jeffy Degroot MD [Primary Care Provider] - Additional Instructions: Your blood pressure was elevated during todays visit; please follow up with your primary care provider within a week for further evaluation. Follow up with your primary care physician in three days. Return to the emergency department for any new or worsening symptoms. - Billing Disposition and Condition Condition: STABLE Disposition: [facility] The documentation as recorded by the Jamel childress Jennifer accurately reflects the service I personally performed and the decisions made by me, Sonny Cristina MD.
[2017-12-15] MEDS ORDERED: ALPRAZolam TAB* 0.25 MG PO PRN (15:43)
[2017-12-15] MEDS ORDERED: Ondansetron TAB* 4 MG PO PRN (15:43)
[2017-12-15] MEDS ORDERED: Docusate CAP* 100 MG PO PRN (15:43)
[2017-12-15] MEDS ORDERED: Senna TAB PO PRN (15:43)
[2017-12-15] MEDS ORDERED: Acetaminophen TAB* 325 MG PO PRN (15:47)
[2017-12-15] MEDS: HYDROmorphone INJ* 2 MG/ML CARPUJECT SYRINGE IV SLOW PU PRN ×3 (17:38→23:53)
--- NOTE | 2017-12-15 18:45 | HP ---
HISTORY AND PHYSICAL: DATE OF ADMISSION: 12/15/17 REASON FOR ADMISSION: Dehydration and uncontrolled pain. IDENTIFICATION: A 72-year-old male with multiple myeloma refractory to multiple lines of chemotherapy. HISTORY OF PRESENT ILLNESS: Ms. Morris has been struggling for several weeks with multiple myeloma. He started a new regimen of elotuzumab, pomalidomide, and dexamethasone on 11/01/17. He has tolerated the therapy reasonably well during the first month. He has initial drop in the monoclonal protein from 1.9 down to 1.1 and a drop in his light chains. He took a trip to [place] about 3 weeks ago that went well. Unfortunately, in the second cycle of therapy, he did poorly. Over the past several weeks, he has had increasing pain primarily in the right shoulder, but also in the back, in the legs, no appetite, increasingly weak. This is very similar to progressions on prior lines of chemotherapy. He was seen last Friday in clinic and we made multiple medication changes including increasing his fentanyl, increasing his Dilaudid for the pain. We re-sent his blood work. Unfortunately, his serologic studies came back with increase in his light chains and increase in the monoclonal protein to 1.4 g/dL. Over the weekend, despite the medicine changes, his symptoms worsened. He has been in excruciating pain, 9/10 in intensity despite the Dilaudid and he has barely been eating anything. On presentation, he called the office and came to the emergency room today. Blood work shows a potassium of 2.6, normal creatinine, but very little muscle mass, lactic acid of 4.8. He received 2 units of packed red blood cells last week and his hemoglobin is 11.0 from 8. Discussion in the emergency room today. Neither the patient or myself believes the most recent chemotherapy is working. At this point, he has progressed on several lines of treatment and it is of little value in additional myeloma therapy. We will work on his comfort overnight hydrating him. He has met with Dr. Powell in the past discussing the life issues and we will formally transition to hospice. PAST MEDICAL HISTORY: 1. Multiple myeloma. Presented with back pain in 2014 and had multiple bone lesions at that time. He had a monoclonal protein of 3.89 g/dL and serum light chains of 30, bone marrow biopsy 40%. He had CyBORD x3 without response and then changed to RVD where he had a pathologic CR. He had transplant in April 2016 and started maintenance Revlimid in 08/18/16. Revlimid was held for recurrent bronchitis and he had recurrent disease in June 2017. Since his recurrence, he has been on daratumumab, Velcade, dexamethasone followed by VAD chemotherapy, followed by elotuzumab, pembrolizumab, and dexamethasone; all 3 regimens without response. 2. Hyperlipidemia. 3. Hypertension. 4. Pulmonary embolus in April 2017, on Xarelto. MEDICATIONS: 1. Fentanyl 125 mcg q.3 days. 2. Dilaudid 4 mg 2 tabs q.4 hours p.r.n. 3. Megace 800 mg p.o. daily. 4. Klor-Con 20 mEq daily. 5. Senna 1 tab b.i.d. 6. Xarelto 20 mg daily. ALLERGIES: SIMVASTATIN. SOCIAL HISTORY: Very supportive family who is with him, including his son and his . He has 2 grandchildren. He is retired. He used to work for the [employer]. FAMILY HISTORY: COPD, lung cancer in the family. REVIEW OF SYSTEMS: General: Very fatigued and weak. No fevers, chills, or night sweats. HEENT: Dry mouth, otherwise negative. Pulmonary: Negative. Cardiac: Negative. GI: Not eating much. He is constipated. : Dark urine. No pain with urination. Musculoskeletal: Diffuse weakness. Able to get out of bed, but needs assistance for walking, it is new. Neurological: Mild neuropathy in legs prior to therapy. PHYSICAL EXAMINATION GENERAL: Cachectic and weak appearing. VITAL SIGNS: BP 152/98, heart rate 83, respirations 18, temp 98. HEENT: Mucosa dry, but no thrush. LUNGS: Clear to auscultation. HEART: Regular rate and rhythm, S1, S2. Slightly tachycardic. ABDOMEN: Nontender, nondistended. Good bowel sounds. MUSCULOSKELETAL: Diffuse muscle weakness. NEUROLOGIC: Deferred. Alert and oriented x3. LABORATORY DATA: Potassium 2.6. Lactic acid 4.8. Hemoglobin 11, white count 4.9, platelets 269. . ASSESSMENT AND PLAN: A 72-year-old male with history of multiple myeloma, relapsed after transplant, status post 3 lines of salvage chemotherapy, none of which have been effective. He has continued functional decline over several weeks, we have been unable to control his symptoms. I will leave to admission for IV hydration and electrolyte repletion with adjustment to his pain medication. We will consult hospice and plan discharge with hospice. 1. IV fluids with normal saline and 40 mEq of potassium at 150 cc per hour. Recheck potassium and magnesium in the morning. 2. No transfusion, likely had some drop in his hemoglobin with dilution. 3. Pain. Increased fentanyl to 200 mcg an hour and change Dilaudid to 1 mg IV q.2 hours p.r.n. 4. Anorexia. We will continue his Megace 800 mg daily. 5. DNR/DNI, MOLST form updated in the emergency room. 6. Consultation with hospice. [id number]/[facility] #: [id number] NIK
[2017-12-15] MEDS: NS 0.9% w/ 40 Meq KCL 1000 ML* 1,000 ML IV SCH (18:53)
[2017-12-15] MEDS ORDERED: fentaNYL PATCHs 100 MCG/HR TRANSDERM SCH (20:00)
[2017-12-15] MEDS: Zolpidem TAB* 10 MG PO SCH (20:33)
[2017-12-15] MEDS: Potassium Chlor TAB* 20 MEQ TAB.ER PO SCH (21:10)
[2017-12-16] MEDS: NS 0.9% w/ 40 Meq KCL 1000 ML* 1,000 ML IV SCH ×3 (02:35→17:09)
[2017-12-16 06:48] LABS: ABS Basophils 0 10^3/ul (0-0.2); ABS Eosinophils 0.1 10^3/ul (0-0.6); ABS Monocytes 0.5 10^3/ul (0-0.8); ABS Neutrophils 3.1 10^3/ul (1.5-7.7); ABS Nucleated RBC 0 10^3/ul; Eosinophil % 1.1 % (0-6); Hematocrit 32 % (42-52); Hemoglobin 10.5 g/dl (14.0-18.0); Lymphocyte % 34.4 % (25-47); Mean Corpuscular HGB Conc 33 g/dl (31-36); Mean Corpuscular Hemoglobin 30 pg (27-31); Mean Corpuscular Volume 91 fL (80-94); Mean Platelet Volume 7.6 um3 (7.4-10.4); Nucleated Red Blood Cells % 0.1; Platelet Count 259 10^3/ul (150-450); Red Blood Count 3.47 10^6/ul (4.0-5.4); Red Cell Distribution Width 17 % (10.5-15); White Blood Count 5.7 10^3/ul (3.5-10.8)
[2017-12-16] MEDS: fentaNYL Patch Check Q Shift 1 NOTE SCH ×2 (06:57→22:11)
[2017-12-16] MEDS: Potassium Chlor TAB* 20 MEQ TAB.ER PO SCH ×2 (08:45→21:06)
[2017-12-16] MEDS: Rivaroxaban TAB(*) 20 MG TAB PO SCH (08:45)
[2017-12-16] MEDS ORDERED: Magnesium Sulfate 2 GM IV* 2 GM/50 ML BAG IVPB ONE (10:10)
[2017-12-16] MEDS: Clotrimazole TROCHE* 10 MG TROCHE PO SCH ×5 (10:50→21:07)
--- NOTE | 2017-12-16 12:19 | PN ---
Progress Note - Progress Note Date of Service: 12/16/17 SOAP: Subjective: []Feeling a little better today however remains very fatigued. Biggest complaint is some discomfort with swallowing. Aware of plan of care for transition to hospice. Asking appropriate questions and involved in plan. at bedside. Medications: Acetaminophen (Tylenol Tab*) 650 mg PO Q4H PRN PRN Reason: FEVER/PAIN Alprazolam (Xanax Tab*) 0.25 mg PO Q6H PRN PRN Reason: ANXIETY Clotrimazole (Mycelex Elsa*) 10 mg PO FIVE TIMES DAILY [facility] Last Admin: 12/16/17 10:50 Dose: 10 mg Docusate Sodium (Colace Cap*) 100 mg PO BID PRN PRN Reason: CONSTIPATION Fentanyl (Duragesic Patch 100 Mcg/Hr *) 200 mcg TRANSDERM Q72H [facility] Last Admin: 12/15/17 18:54 Dose: 200 mcg Hydromorphone HCl (Dilaudid Inj*) 2 mg IV SLOW PU Q2H PRN PRN Reason: PAIN Last Admin: 12/15/17 23:53 Dose: 2 mg Potassium Chloride/Sodium Chloride (Ns 0.9% W/ 40 Meq Kcl 1000 Ml*) 1,000 mls @ 150 mls/hr IV PER RATE [facility] Last Admin: 12/16/17 09:43 Dose: 150 mls/hr Megestrol Acetate (Megestrol Susp*) 800 mg PO DAILY [facility] Ondansetron HCl (Zofran Tab*) 4 mg PO Q6H PRN PRN Reason: NAUSEA Pharmacy Profile Note (Fentanyl Patch Check Q Shift) 1 note N/A 0700,1900 [facility] Last Admin: 12/16/17 06:57 Dose: 1 note Potassium Chloride (Klor Con Er Tab*) 20 meq PO BID [facility] Last Admin: 12/16/17 08:45 Dose: 20 meq Rivaroxaban (Xarelto(*)) 20 mg PO DAILY [facility] Last Admin: 12/16/17 08:45 Dose: 20 mg Senna (Senokot Tab*) 1 tab PO BEDTIME PRN PRN Reason: CONSTIPATION Zolpidem Tartrate (Ambien Tab*) 10 mg PO BEDTIME [facility] Last Admin: 12/15/17 20:33 Dose: Not Given Objective: [] Vital Signs Temp Pulse Resp BP Pulse Ox 97.5 F 93 16 158/92 92 12/16/17 07:13 12/16/17 07:13 12/16/17 08:00 12/16/17 07:13 12/16/17 07:13 A&Ox3, EOMI, BELLO, notably fatigued MMM +thrush HRR, S1S2 LS clear +BS, abd. soft and non-tender +PP=bilat., no edema noted Laboratory Results - last 24 hr 12/15/17 12/15/17 12/15/17 13:08 13:08 13:08 WBC RBC Hgb Hct MCV MCH MCHC RDW Plt Count MPV Neut % (Auto) Lymph % (Auto) [place] % (Auto) Eos % (Auto) Baso % (Auto) Absolute Neuts (auto) Absolute Lymphs (auto) Absolute Monos (auto) Absolute Eos (auto) Absolute Basos (auto) Absolute Nucleated RBC Nucleated RBC % INR (Anticoag Therapy) 0.99 APTT 29.6 Sodium 141 Potassium 2.6 L* Chloride 99 L Carbon Dioxide 27 Anion Gap 15 H BUN 11 Creatinine 0.48 L Est GFR ( Amer) 221.0 Est GFR (Non-Af Amer) 171.8 BUN/Creatinine Ratio 22.9 H Glucose 103 H Lactic Acid Calcium 8.8 Magnesium 2.0 Total Bilirubin 1.00 AST 13 ALT 4 L Alkaline Phosphatase 45 Total Creatine Kinase 25 CK-MB (CK-2) 0.9 C-Reactive Protein 310.79 H B-Natriuretic Peptide 114 H Total Protein 6.7 Albumin 2.5 L Globulin 4.2 H Albumin/Globulin Ratio 0.6 L Lipase < 10 L 12/15/17 12/15/17 12/16/17 13:08 13:08 05:49 WBC 4.9 5.7 RBC 3.62 L 3.47 L Hgb 11.0 L 10.5 L Hct 33 L 32 L MCV 90 91 MCH 30 30 MCHC 34 33 RDW 17 H 17 H Plt Count 269 259 MPV 7.4 7.6 Neut % (Auto) 64.1 54.6 Lymph % (Auto) 24.4 L 34.4 [place] % (Auto) 9.9 H 9.0 H Eos % (Auto) 0.8 1.1 Baso % (Auto) 0.8 0.9 Absolute Neuts (auto) 3.1 3.1 Absolute Lymphs (auto) 1.2 2.0 Absolute Monos (auto) 0.5 0.5 Absolute Eos (auto) 0 0.1 Absolute Basos (auto) 0 0 Absolute Nucleated RBC 0 0 Nucleated RBC % 0.1 0.1 INR (Anticoag Therapy) APTT Sodium Potassium Chloride Carbon Dioxide Anion Gap BUN Creatinine Est GFR ( Amer) Est GFR (Non-Af Amer) BUN/Creatinine Ratio Glucose Lactic Acid 4.8 H* Calcium Magnesium Total Bilirubin AST ALT Alkaline Phosphatase Total Creatine Kinase CK-MB (CK-2) C-Reactive Protein B-Natriuretic Peptide Total Protein Albumin Globulin Albumin/Globulin Ratio Lipase 12/16/17 05:49 WBC RBC Hgb Hct MCV MCH MCHC RDW Plt Count MPV Neut % (Auto) Lymph % (Auto) [place] % (Auto) Eos % (Auto) Baso % (Auto) Absolute Neuts (auto) Absolute Lymphs (auto) Absolute Monos (auto) Absolute Eos (auto) Absolute Basos (auto) Absolute Nucleated RBC Nucleated RBC % INR (Anticoag Therapy) APTT Sodium 141 Potassium 3.3 L Chloride 104 Carbon Dioxide 23 Anion Gap 14 H BUN 8 Creatinine 0.44 L Est GFR ( Amer) 244.3 Est GFR (Non-Af Amer) 190.0 BUN/Creatinine Ratio 18.2 Glucose 82 Lactic Acid Calcium 8.2 L Magnesium 1.7 L Total Bilirubin 0.80 AST 12 L ALT 4 L Alkaline Phosphatase 39 Total Creatine Kinase CK-MB (CK-2) C-Reactive Protein B-Natriuretic Peptide Total Protein 6.2 L Albumin 2.4 L Globulin 3.8 Albumin/Globulin Ratio 0.6 L Lipase Assessment: []72 yo male admitted with uncontrolled pain, marked dehydration secondary to poor intake, and advanced melanoma with poor response to therapy. Slow improvement and plan for transition to hospice once hydration improved. Plan: []1. Hospice Consult 2. Cont. IV fluids with KCl 3. Add clotrimazole troches DNR
[2017-12-16] MEDS: Megestrol SUSP* 400 MG/10 ML UDC PO SCH (12:59)
[2017-12-16] MEDS: HYDROmorphone INJ* 2 MG/ML CARPUJECT SYRINGE IV SLOW PU PRN ×2 (13:10→21:02)
--- NOTE | 2017-12-16 13:39 | CONSULT ---
Palliative / Hospice Consult Ordering Provider: Jeffy Manley - Subjective Code Status: DNR Advance Directives Location: In Chart MOLST Part A Completed: Yes - DNR MOLST Part E Completed:: Yes - DNI HCP Completed: Yes - History or Present Illness History or Present Illness: This 72 year old man was diagnosed with mutliple myeloma in 2014, and has had multiple treatments since that time. I saw him in consultation in September 2014 when he was admitted with pain and dehydration. Please refer to my note from that visit for a more detailed history. Since his hospitalization in September he has required repeated visits to the ER and [facility] for hydration and pain management. He did manage to get a very important family reunion visit to [place] recently, but has had increasing anorexia and pain since then, with generalized weakness and fatigue. His last attempt at chemotherapy seemed successful initially, and was well tolerated for about a week, but then he experienced renewed symptoms and POD. He and his family have decided to discontinue life-prolonging attempts and to remain at home on home on hospice services. He is more comfortable now that his Fentanyl patch has been ncreased from 125 to 200 mcg, and his Dilaudid, which was at 8 mg po Q 4 h, is now at 1 mg IV Q 2 h prn. He still has no appetite, and has not been using megestrol as initiated in September, but is now restarting Megace. His weight has dropped from 145 lb. in June 2017 to 117 lb. now. He has not had a BM in several days, but has also taken almost no solids orally. Lab Values: Abnormal Lab Results 12/16/17 12/16/17 05:49 05:49 WBC 5.7 RBC 3.47 L Hgb 10.5 L Hct 32 L MCV 91 MCH 30 MCHC 33 RDW 17 H Plt Count 259 MPV 7.6 Neut % (Auto) 54.6 Lymph % (Auto) 34.4 [place] % (Auto) 9.0 H Eos % (Auto) 1.1 Baso % (Auto) 0.9 Absolute Neuts (auto) 3.1 Absolute Lymphs (auto) 2.0 Absolute Monos (auto) 0.5 Absolute Eos (auto) 0.1 Absolute Basos (auto) 0 Absolute Nucleated RBC 0 Nucleated RBC % 0.1 Sodium 141 Potassium 3.3 L Chloride 104 Carbon Dioxide 23 Anion Gap 14 H BUN 8 Creatinine 0.44 L Est GFR ( Amer) 244.3 Est GFR (Non-Af Amer) 190.0 BUN/Creatinine Ratio 18.2 Glucose 82 Calcium 8.2 L Magnesium 1.7 L Total Bilirubin 0.80 AST 12 L ALT 4 L Alkaline Phosphatase 39 Total Protein 6.2 L Albumin 2.4 L Globulin 3.8 Albumin/Globulin Ratio 0.6 L Laboratory Last Values WBC 5.7 10^3/ul (3.5-10.8) 12/16/17 05:49 RBC 3.47 10^6/ul (4.0-5.4) L 12/16/17 05:49 Hgb 10.5 g/dl (14.0-18.0) L 12/16/17 05:49 Hct 32 % (42-52) L 12/16/17 05:49 MCV 91 fL (80-94) 12/16/17 05:49 MCH 30 pg (27-31) 12/16/17 05:49 MCHC 33 g/dl (31-36) 12/16/17 05:49 RDW 17 % (10.5-15) H 12/16/17 05:49 Plt Count 259 10^3/ul (150-450) 12/16/17 05:49 MPV 7.6 um3 (7.4-10.4) 12/16/17 05:49 Neut % (Auto) 54.6 % (38-83) 12/16/17 05:49 Lymph % (Auto) 34.4 % (25-47) 12/16/17 05:49 [place] % (Auto) 9.0 % (0-7) H 12/16/17 05:49 Eos % (Auto) 1.1 % (0-6) 12/16/17 05:49 Baso % (Auto) 0.9 % (0-2) 12/16/17 05:49 Absolute Neuts (auto) 3.1 10^3/ul (1.5-7.7) 12/16/17 05:49 Absolute Lymphs (auto) 2.0 10^3/ul (1.0-4.8) 12/16/17 05:49 Absolute Monos (auto) 0.5 10^3/ul (0-0.8) 12/16/17 05:49 Absolute Eos (auto) 0.1 10^3/ul (0-0.6) 12/16/17 05:49 Absolute Basos (auto) 0 10^3/ul (0-0.2) 12/16/17 05:49 Absolute Nucleated RBC 0 10^3/ul 12/16/17 05:49 Nucleated RBC % 0.1 12/16/17 05:49 INR (Anticoag Therapy) 0.99 (0.77-1.02) 12/15/17 13:08 APTT 29.6 seconds (26.0-36.3) 12/15/17 13:08 Sodium 141 mmol/L (139-145) 12/16/17 05:49 Potassium 3.3 mmol/L (3.5-5.0) L 12/16/17 05:49 Chloride 104 mmol/L (101-111) 12/16/17 05:49 Carbon Dioxide 23 mmol/L (22-32) 12/16/17 05:49 Anion Gap 14 mmol/L (2-11) H 12/16/17 05:49 BUN 8 mg/dL (6-24) 12/16/17 05:49 Creatinine 0.44 mg/dL (0.67-1.17) L 12/16/17 05:49 Est GFR ( Amer) 244.3 (>60) 12/16/17 05:49 Est GFR (Non-Af Amer) 190.0 (>60) 12/16/17 05:49 BUN/Creatinine Ratio 18.2 (8-20) 12/16/17 05:49 Glucose 82 mg/dL (70-100) 12/16/17 05:49 Lactic Acid 4.8 mmol/L (0.5-2.0) H* 12/15/17 13:08 Calcium 8.2 mg/dL (8.6-10.3) L 12/16/17 05:49 Magnesium 1.7 mg/dL (1.9-2.7) L 12/16/17 05:49 Total Bilirubin 0.80 mg/dL (0.2-1.0) 12/16/17 05:49 AST 12 U/L (13-39) L 12/16/17 05:49 ALT 4 U/L (7-52) L 12/16/17 05:49 Alkaline Phosphatase 39 U/L (34-104) 12/16/17 05:49 Total Creatine Kinase 25 U/L (10-223) 12/15/17 13:08 CK-MB (CK-2) 0.9 ng/mL (0.6-6.3) 12/15/17 13:08 C-Reactive Protein 310.79 mg/L (< 5.00) H 12/15/17 13:08 B-Natriuretic Peptide 114 pg/mL (-100) H 12/15/17 13:08 Total Protein 6.2 g/dL (6.4-8.9) L 12/16/17 05:49 Albumin 2.4 g/dL (3.2-5.2) L 12/16/17 05:49 Globulin 3.8 g/dL (2-4) 12/16/17 05:49 Albumin/Globulin Ratio 0.6 (1-3) L 12/16/17 05:49 Lipase < 10 U/L (11.0-82.0) L 12/15/17 13:08 - Objective Active Medications: Acetaminophen (Tylenol Tab*) 650 mg PO Q4H PRN PRN Reason: FEVER/PAIN Alprazolam (Xanax Tab*) 0.25 mg PO Q6H PRN PRN Reason: ANXIETY Clotrimazole (Mycelex Elsa*) 10 mg PO FIVE TIMES DAILY [facility] Last Admin: 12/16/17 12:59 Dose: 10 mg Docusate Sodium (Colace Cap*) 100 mg PO BID PRN PRN Reason: CONSTIPATION Fentanyl (Duragesic Patch 100 Mcg/Hr *) 200 mcg TRANSDERM Q72H [facility] Last Admin: 12/15/17 18:54 Dose: 200 mcg Hydromorphone HCl (Dilaudid Inj*) 2 mg IV SLOW PU Q2H PRN PRN Reason: PAIN Last Admin: 12/16/17 13:10 Dose: 2 mg Potassium Chloride/Sodium Chloride (Ns 0.9% W/ 40 Meq Kcl 1000 Ml*) 1,000 mls @ 150 mls/hr IV PER RATE [facility] Last Admin: 12/16/17 09:43 Dose: 150 mls/hr Megestrol Acetate (Megestrol Susp*) 800 mg PO DAILY [facility] Last Admin: 12/16/17 12:59 Dose: 800 mg Ondansetron HCl (Zofran Tab*) 4 mg PO Q6H PRN PRN Reason: NAUSEA Pharmacy Profile Note (Fentanyl Patch Check Q Shift) 1 note N/A 0700,1900 [facility] Last Admin: 12/16/17 06:57 Dose: 1 note Potassium Chloride (Klor Con Er Tab*) 20 meq PO BID [facility] Last Admin: 12/16/17 08:45 Dose: 20 meq Rivaroxaban (Xarelto(*)) 20 mg PO DAILY [facility] Last Admin: 12/16/17 08:45 Dose: 20 mg Senna (Senokot Tab*) 1 tab PO BEDTIME PRN PRN Reason: CONSTIPATION Zolpidem Tartrate (Ambien Tab*) 10 mg PO BEDTIME [facility] Last Admin: 12/15/17 20:33 Dose: Not Given Vital Signs: Vital Signs: Temp Pulse Resp BP Pulse Ox 97.5 F 93 16 158/92 92 12/16/17 07:13 12/16/17 07:13 12/16/17 13:10 12/16/17 07:13 12/16/17 07:13 Patient Weight: Weight 117 lb 9.6 oz Intake and Output: Intake & Output 12/14/17 12/15/17 12/16/17 12/17/17 06:59 06:59 06:59 06:59 Intake Total 2913 350 Balance 2913 350 Weight 117 lb 9.6 oz Intake: IV Fluids 2513 NS 40 K 1513 Oral 400 350 Other: Estimated Void Large # Bowel Movements 1 Estimated Stool Amount Medium # Voids 3 ADLs: Meal Record Start: 12/15/17 18: 48 Freq: DAILY@0900,1400,1800 Status: Active Protocol: Created 12/15/17 18:48 System (Rec: 12/15/17 18:48 System [id number]) Document 12/16/17 09:00 [id number] (Rec: 12/16/17 09:45 [id number] MED-C03) Intake and Output Start: 12/15/17 11: 31 Freq: Status: Active Protocol: Created 12/15/17 11:31 System (Rec: 12/15/17 11:31 System [id number]) Intake and Output Start: 12/15/17 18: 48 Freq: DAILY@0600,1400,2200 Status: Active Protocol: Created 12/15/17 18:48 System (Rec: 12/15/17 18:48 System [id number]) Document 12/15/17 22:00 [id number] (Rec: 12/15/17 22:02 [id number] MED-C09) Document 12/16/17 05:58 [id number] (Rec: 12/16/17 05:59 [id number] MED-C05) General Impression: Pleasant gentleman with sorrowful affect appearing much older than his stated age, reclining in bed. Head: Symmetrical Eyes: No Scleral Icterus Ears/Nose/Mouth/Throat: Clear Oropharnyx Neck: Trachea Midline Cardiovascular: NL Sounds; No Murmurs; No JVD Respiratory: Symmetrical Chest Expansion and Respiratory Effort Abdominal: NL Sounds; No Tenderness; No Distention Extremities: No Edema, No Clubbing, Cyanosis Neurological: Alert and Oriented x 3 - Assessment Assessment: Thispatient qualifies for hospice services with a primary diagniosis of metastatic multiple myeloma and a seconday of weight loss/cachexia. Dr. Manley has discussed medical marijuana with him and I also would suggest this for its appetite stimulating, anti-nausea and opioid-sparing effects, although the patient seems resistant. We will see how the Megace works for his appetite. He is on Xarelto for disease-associated PE, and all of his medications should be covered by the Medicare Hospice benefit. He is getting adequate pain relief now with Fentanyl and Dilaudid as long as he requests the Dilaudid doses. He should be referred to [facility] in [facility] for sign on after he returns home. He does not need a hospital bed at this time. Thanks for asking me to see him again. - Plan Consult Plan (MU): Hospice - Time On Unit Date of Evaluation: 12/16/17 Hospice Consult Time in: 12:30 Hospice Consult Time Out: 13:30 Hospice Consult Time Total: 60
[2017-12-16] MEDS ORDERED: Gabapentin CAP(*) 300 MG PO PRN (14:10)
[2017-12-16] MEDS: Zolpidem TAB* 10 MG PO SCH (21:06)
[2017-12-17] MEDS: NS 0.9% w/ 40 Meq KCL 1000 ML* 1,000 ML IV SCH ×2 (00:03→07:28)
[2017-12-17] MEDS: HYDROmorphone INJ* 2 MG/ML CARPUJECT SYRINGE IV SLOW PU PRN ×3 (02:01→21:05)
[2017-12-17] MEDS: Clotrimazole TROCHE* 10 MG TROCHE PO SCH ×5 (05:56→21:06)
[2017-12-17] MEDS: fentaNYL Patch Check Q Shift 1 NOTE SCH ×2 (07:08→19:01)
[2017-12-17] MEDS ORDERED: NS 0.9% w/ 40 Meq KCL 1000 ML* 1,000 ML IV SCH (09:00)
--- NOTE | 2017-12-17 09:05 | PN ---
Progress Note - Progress Note Date of Service: 12/24/17 SOAP: Subjective: []A little better. Pain is better then admission but still using PRN pain meds. He is eating some, started therapy for thrush. A little walking, remains weak. Wants to go home if hospice can be arranged. Acetaminophen (Tylenol Tab*) 650 mg PO Q4H PRN PRN Reason: FEVER/PAIN Alprazolam (Xanax Tab*) 0.25 mg PO Q6H PRN PRN Reason: ANXIETY Clotrimazole (Mycelex Elsa*) 10 mg PO FIVE TIMES DAILY [facility] Last Admin: 12/17/17 05:56 Dose: 10 mg Docusate Sodium (Colace Cap*) 100 mg PO BID PRN PRN Reason: CONSTIPATION Last Admin: 12/16/17 21:07 Dose: 100 mg Fentanyl (Duragesic Patch 100 Mcg/Hr *) 200 mcg TRANSDERM Q72H [facility] Last Admin: 12/15/17 18:54 Dose: 200 mcg Fluconazole (Diflucan 100 Mg Tab*) 200 mg PO DAILY [facility] Stop: 12/20/17 23:59 Gabapentin (Neurontin Cap(*)) 300 mg PO TID PRN PRN Reason: NEUROPATHIC PAIN Hydromorphone HCl (Dilaudid Inj*) 2 mg IV SLOW PU Q2H PRN PRN Reason: PAIN Last Admin: 12/17/17 02:01 Dose: 2 mg Magnesium Sulfate 3 gm/ Sodium (Chloride) 106 mls @ 53 mls/hr IVPB ONCE ONE Stop: 12/17/17 11:29 Potassium Chloride/Sodium Chloride (Ns 0.9% W/ 40 Meq Kcl 1000 Ml*) 1,000 mls @ 100 mls/hr IV PER RATE [facility] Stop: 12/18/17 09:00 Megestrol Acetate (Megestrol Susp*) 800 mg PO DAILY [facility] Last Admin: 12/16/17 12:59 Dose: 800 mg Ondansetron HCl (Zofran Tab*) 4 mg PO Q6H PRN PRN Reason: NAUSEA Pharmacy Profile Note (Fentanyl Patch Check Q Shift) 1 note N/A 0700,1900 [facility] Last Admin: 12/17/17 07:08 Dose: 1 note Potassium Chloride (Klor Con Er Tab*) 20 meq PO BID [facility] Last Admin: 12/16/17 21:06 Dose: 20 meq Rivaroxaban (Xarelto(*)) 20 mg PO DAILY [facility] Last Admin: 12/16/17 08:45 Dose: 20 mg Senna (Senokot Tab*) 1 tab PO BEDTIME PRN PRN Reason: CONSTIPATION Last Admin: 12/16/17 21:07 Dose: 1 tab Zolpidem Tartrate (Ambien Tab*) 10 mg PO BEDTIME [facility] Last Admin: 12/16/17 21:06 Dose: Not Given Objective: [] Vital Signs Temp Pulse Resp BP Pulse Ox 98.1 F 108 18 159/94 90 12/17/17 07:28 12/17/17 07:28 12/17/17 07:37 12/17/17 07:28 12/17/17 07:28 HEENT - thrush better, mucous moist. CTA BL RRR S1S2 +BS NT Generally weak, neurologically non focal. Assessment: []72 year old MM refractory to therapy, palliative care. He has modest improvement today from admission, wants to go home with hospice when possible. Plan: []1. No change in pain medication today. Will change to liquid morphine on discharge or when throat pain clears. 2. Thrush. will add Fluconazole for 3 days. 3. FEN. Replete Mg and K po and IV today, discharge on po K. Continue Megestrol , it helps. 4. Flat affect and has been depressed recently. 5. DNR and DNI
[2017-12-17] MEDS ORDERED: Magnesium Sulfate IV* 3 GM in NS 0.9% 100 ML* 100 ML IVPB ONE (09:30)
[2017-12-17] MEDS: Megestrol SUSP* 400 MG/10 ML UDC PO SCH (10:03)
[2017-12-17] MEDS: Rivaroxaban TAB(*) 20 MG TAB PO SCH (10:04)
[2017-12-17] MEDS: Potassium Chlor TAB* 20 MEQ TAB.ER PO SCH (10:04)
[2017-12-17] MEDS: Fluconazole 100 MG TAB* TAB PO SCH (10:04)
[2017-12-17 11:12] LABS: EGFR Non-African American 185.1 (>60)
[2017-12-17] MEDS: NS 0.9% 1000 ML* 1,000 ML IV SCH (14:12)
[2017-12-17] MEDS: Zolpidem TAB* 10 MG PO SCH (21:06)
[2017-12-18] MEDS: NS 0.9% 1000 ML* 1,000 ML IV SCH (00:32)
[2017-12-18] MEDS: HYDROmorphone INJ* 2 MG/ML CARPUJECT SYRINGE IV SLOW PU PRN (02:12)
[2017-12-18] MEDS: Clotrimazole TROCHE* 10 MG TROCHE PO SCH ×2 (06:01→09:43)
[2017-12-18 06:12] LABS: ABS Basophils 0.1 10^3/ul (0-0.2); ABS Eosinophils 0 10^3/ul (0-0.6); ABS Lymphocytes 1.5 10^3/ul (1.0-4.8); ABS Monocytes 0.7 10^3/ul (0-0.8); ABS Neutrophils 4.1 10^3/ul (1.5-7.7); ABS Nucleated RBC 0 10^3/ul; Eosinophil % 0.5 % (0-6); Hematocrit 30 % (42-52); Lymphocyte % 23.2 % (25-47); Mean Corpuscular HGB Conc 33 g/dl (31-36); Mean Corpuscular Hemoglobin 30 pg (27-31); Mean Corpuscular Volume 91 fL (80-94); Mean Platelet Volume 7.5 um3 (7.4-10.4); Nucleated Red Blood Cells % 0.2; Platelet Count 191 10^3/ul (150-450); Red Blood Count 3.33 10^6/ul (4.0-5.4); Red Cell Distribution Width 17 % (10.5-15); White Blood Count 6.4 10^3/ul (3.5-10.8)
[2017-12-18] MEDS ORDERED: Furosemide IV* 10 MG/ML 2 ML VIAL (20 MG) IV ONE (06:50)
[2017-12-18] MEDS: fentaNYL Patch Check Q Shift 1 NOTE SCH (07:23)
[2017-12-18 07:47] VITALS: BP 162/105
[2017-12-18] MEDS ORDERED: HYDROmorphone TAB* 4 MG PO PRN (09:21)
[2017-12-18] MEDS ORDERED: Polyethylene Glycol 3350* 17 GM PACKET PO PRN (09:32)
[2017-12-18] MEDS: Megestrol SUSP* 400 MG/10 ML UDC PO SCH (09:42)
[2017-12-18] MEDS: Rivaroxaban TAB(*) 20 MG TAB PO SCH (09:42)
[2017-12-18] MEDS: Fluconazole 100 MG TAB* TAB PO SCH (09:42)
--- NOTE | 2018-01-22 17:08 | DS ---
DISCHARGE SUMMARY: DATE OF ADMISSION: 12/15/17 DATE OF DISCHARGE: 12/18/17 HISTORY OF PRESENT ILLNESS: Mr. Morris is a 72-year-old male with a history of multiple myeloma. He has been on multiple different lines of therapy and has become refractory. He had started a new regimen in October, tolerated it reasonably well but then had worsening symptoms in blood counts. The decision was made with the patient and his family at the time of admission in the emergency room for him to be placed on comfort care and to receive hydration. He had met with Dr. Powell in the past discussing issues of end-of-life care and decision was made that unless he improved dramatically during the hospitalization that he would transition to hospice services. Over the course of several days in the hospital, he became even more week and fatigued. He was seen in consultation by Dr. Powell, nuclear medical technologist for hospice and decision was made to transfer him from the hospital to the hospice residence for best quality of life and control of symptoms. He was given Megace to see if it would improve his appetite. He was maintained on Xarelto for a disease associated pulmonary emboli. By the end of the hospitalization, he seemed to be getting adequate pain relief with fentanyl and Dilaudid. MEDICATIONS AT THE TIME OF DISCHARGE: Included, 1. Fentanyl patch 200 mcg every 72 hours. 2. Gabapentin 300 mg t.i.d. 3. Megace 800 mg daily. 4. Senokot. 5. Meclizine 25 mg q. 8 hours p.r.n. 6. Zofran 4 mg q. 6 hours p.r.n. 7. Xarelto 20 mg daily. 8. Docusate 100 mg b.i.d. 9. Alprazolam 0.25 mg q. 6 hours p.r.n. 10. Hydromorphone 4 mg q. 4 hours p.r.n. DISCHARGE DIAGNOSES: 1. Multiple myeloma. 2. History of pulmonary embolism. 3. Palliative care/end-of-life care. [id number]/[facility] #: [id number] MTDD
== END 2017-12-18 11:59 | disposition hospice, home (50) | DRG 948 ==
LOC: ED 11:19 → MED 15:47
PROVIDERS: ADMIT Internal Medicine Hematology & Oncology; ATTEND Internal Medicine Hematology & Oncology
DX: G89.3 Neoplasm related pain (acute) (chronic) (principal); C90.00 Multiple myeloma not having achieved remission; C79.9 Secondary malignant neoplasm of unspecified site; Z68.1 Body mass index [BMI] 19.9 or less, adult; Z94.84 Stem cells transplant status; E86.0 Dehydration; E78.5 Hyperlipidemia, unspecified; I10 Essential (primary) hypertension; K59.00 Constipation, unspecified; G62.9 Polyneuropathy, unspecified; R64 Cachexia; Z66 Do not resuscitate; R63.0 Anorexia; E87.6 Hypokalemia; Z51.5 Encounter for palliative care; F32.9 Major depressive disorder, single episode, unspecified; B37.9 Candidiasis, unspecified; Z86.711 Personal history of pulmonary embolism; Z88.8 Allergy status to other drugs, medicaments and biological substances; Z82.5 Family history of asthma and other chronic lower respiratory diseases; Z80.1 Family history of malignant neoplasm of trachea, bronchus and lung; Z83.3 Family history of diabetes mellitus; Z80.0 Family history of malignant neoplasm of digestive organs; Z87.891 Personal history of nicotine dependence
CPT/HCPCS: A9270-GY; G0463; J1170; J1885; J1940; J2405; J3475; P9016; P9040